=== PATIENT | female | born 1980 | race Caucasian/White ===

== ENCOUNTER 2017-04-01 12:55 | Emergency (ER) | payer MEDICAID, SELFPAY ==
[2017-04-01 17:17] VITALS: BP 0/0; PULSE 0
== END 2017-04-01 18:13 | disposition left against medical advice (07) ==
LOC: ER 18:10
PROVIDERS: Emergency Provider Family Medicine; Family Provider Nurse Practitioner Obstetrics & Gynecology; PCP Pediatrics
DX: Z53.29 Procedure and treatment not carried out because of patient's decision for other reasons (principal)
CPT/HCPCS: 99211

== ENCOUNTER → 2017-10-10 15:46 | Outpatient (REF) | payer MEDICAID, SELFPAY | LOC: LAB 15:46 | PROVIDERS: Visit Provider Physician Assistant | DX: R30.9 Painful micturition, unspecified (principal) | CPT/HCPCS: 87086 ==

== ENCOUNTER → 2017-11-14 13:27 | Outpatient (CLI) | payer MEDICAID, SELFPAY ==
--- NOTE | 2017-11-14 13:29 | CT_ITS ---
CT head/brain wo con HISTORY: Left-sided facial numbness and tingling in the left arm ITS.REASON: numbness/tingling ORDERING PHYSICIAN: Mag Mar PATIENT AGE: 37 years COMPARISON: None TECHNIQUE: Axial images obtained without contrast. Brain and bone windows reviewed. All CT scans at the facility use one or more dose reduction, viz: automated exposure control, ma/kV adjustment per patient size (including targeted exams where dose is matched to indication, i.e. head), or iterative reconstruction technique. FINDINGS: No midline shift, mass effect, intracranial hemorrhage, hydrocephalus, or extra-axial fluid collection is evident. The calvarium has an unremarkable appearance. No mastoid effusion. No sinus air-fluid levels.. IMPRESSION: Negative CT head without contrast. No acute finding
== END ==
PROVIDERS: Family Provider Nurse Practitioner Obstetrics & Gynecology; PCP Physician Assistant; Visit Provider Nurse Practitioner Family
DX: R20.0 Anesthesia of skin (principal); R20.2 Paresthesia of skin
CPT/HCPCS: 70450

== ENCOUNTER → 2017-11-25 08:31 | Outpatient (CLI) | payer MEDICAID, SELFPAY ==
--- NOTE | 2017-11-25 08:34 | XR_ITS ---
EXAM: XR lumbar spine 2-3V HISTORY: ITS.REASON: back pain ORDERING PHYSICIAN: Mag Mar PATIENT AGE: 37 years COMPARISON: None FINDINGS: There are 6 lumbar segments. There is normal alignment. No fracture or dislocation evident. Minimal degenerative disc disease is present at the lumbosacral junction. No fracture or dislocation. No lytic or blastic change. There is left renal calculus and 7 mm. IMPRESSION: 1. Mild degenerative disc disease at the lumbosacral junction. 2. Left nephrolithiasis
== END ==
PROVIDERS: PCP Emergency Medicine; Visit Provider Nurse Practitioner Family
DX: M54.42 Lumbago with sciatica, left side (principal)
CPT/HCPCS: 72100

== ENCOUNTER 2018-01-27 08:00 | Outpatient (RCR) | payer MEDICAID, SELFPAY ==
--- NOTE | 2017-12-20 11:09 | HMH.PTOPEV ---
PT Outpatient Evaluation Rehab PT Outpatient Evaluation Start: 12/20/17 11:00 Freq: Status: Active Protocol: Document 12/20/17 11:00 STEPHEN (Rec: 12/20/17 11:08 STEPHEN [id number]) Electronically Signed By Gustavo Worthy, PT 12/20/17 11:00 Outpatient Therapy Subjective History Subjective History Pt reports injury to low back on 10/24/17 while lifting boxes at work. Pt reports L sided LBP progressed into L LE s/s following initial injury. Pt presents today with L sided LBP and radicular s/s (N&T, pain, and weakness) in L LE from hip to toes. Pt reports recent CT scan has revealed buldging discs @ L4-5 and L5- S1 to the L. Chief Complaint Pain Clicks Paresthesia Weakness Symptom Type Ache Throb Sharp Dull Stabbing Burning Numbness Tingling Shooting Symptoms Relieved By Rest/Positioning Symptoms Aggravated By Standing Bending/Stooping Physical Activity Twisting Walking Lifting Prior Functional Limitations None Current Functional Limitations Lifting Housework Driving Standing Walking Bending/Stooping Symptom Description Constant but Variable Level of pain today (0-10) 8 Pain scale - at its best (0-10) 7 Pain scale - at its worst (0-10) 10 Lumbopelvic Eval Posture Thoracic Spine Posture Standing Position Neutral Lumbar Spine Posture Standing Position Neutral Assistive device Assistive Devices None / NA Gait Observation General Gait Pattern Observation Antalgic Gait Palapation tenderness left thoracic spinal tenderness No lumbar spinal tenderness Yes: 2/4 paraspinal tenderness Yes: 3/4 buttock tenderness Yes: 3/4 tenderness over symphysis pubis No Lumbar/Sacral Palpation Findings Tenderness
--- NOTE | 2018-01-13 09:13 | HMH.RHREAS ---
Rehab Reassessment Rehab OP Re-assessment Start: 01/13/18 08:59 Freq: Status: Active Protocol: Document 01/13/18 08:59 STEPHEN (Rec: 01/13/18 09:04 STEPHEN [id number]) Electronically Signed By Gustavo Worthy, PT 01/13/18 08:59 Rehab Re-assessment Subjective Subjective PT REPORTS 3-5/10 LBP AND L LE S/S ON VAS, AND FEELS 50% BETTER SINCE I EVAL Objective Objective Notes AROM L-SPINE FLX 0-90, EXT 0- 20, B SB 0-30 MMT: L HIP FLX 4/5, L KNEE EXT 5/5, L KNEE FLX 4/5, L DF 4+/ 5 TTP: L QL MM 2/4, L PIRIFORMIS MM 2/4 Assessment Progress Assessment Progressing as Expected Assessment Notes PT W/IMPROVED ROM, STRENGTH, AND TTP Patient goals met STG'S 09/04 LTG'S 07/10 Goals Not Met LTG'D 10/09 Plan Plan PT TO CONT W/SKILLED P.T. TO MAKE FURTHER IMPROVEMENTS W/ ROM, STRENGTH, AND TTP TO ALLOW FOR OPTIMAL FUNCTION Frequency of Therapy 1-2X/WK Duration of therapy 3-4 WKS Time and Billing Re-Eval Time 15 Re-Eval Billing Units 1 PHYSICIAN CERTIFICATION: I certify the specified therapy services for Krystle Mccauley are required, authorized, and reviewed every 30 days.
== END 2018-01-27 08:01 | disposition home or self-care (01) ==
LOC: PT 08:00
PROVIDERS: Family Provider Nurse Practitioner Obstetrics & Gynecology; PCP Emergency Medicine; Visit Provider Physician Assistant
DX: M54.40 Lumbago with sciatica, unspecified side (principal)
CPT/HCPCS: 97010; 97012; 97014; 97033; 97035; 97110; 97163; 97164; G0283

== ENCOUNTER → 2018-02-27 13:37 | Outpatient (CLI) | payer MEDICAID, SELFPAY ==
[2018-02-27 13:50] LABS: Basophils # 0.1 K/mm3 (0-0.2); Eosinophils # 0.8 K/mm3 (0.0-0.4); Eosinophils % 8.1 % (0.1-12.0); Hematocrit 42.8 % (37.0-47.0); Hemoglobin 13.9 g/dL (12.2-16.2); Lymphocytes # 2.8 K/mm3 (0.7-4.5); Lymphocytes % 29.8 % (10-50); Mean Corpuscular HGB Conc 32.4 g/dL (31.8-35.4); Mean Corpuscular Hemoglobin 29.6 pg (27.0-31.2); Mean Corpuscular Volume 91.2 fl (81-99); Mean Platelet Volume 6.7 fl (7.4-10.4); Monocytes # 0.5 K/mm3 (0.1-1.0); Monocytes % 5.6 % (1.7-9.3); Neutrophils # 5.3 K/mm3 (1.8-7.8); Neutrophils % 55.5 % (37.0-80.0); Platelet Count 429 K/mm3 (142-424); Red Cell Distribution Width 13.1 % (11.5-17.5); White Blood Count 9.5 K/mm3 (4.8-10.8)
[2018-02-27 14:30] LABS: Alanine Aminotransferase 32 U/L (12-78); Albumin Level 4.1 gm/dL (3.4-5.0); Albumin/Globulin Ratio 1.1 (1.1-1.8); Alkaline Phosphatase 96 U/L (46-116); Anion Gap 13.4 mEq/L (5-15); Aspartate Amino Transferase 20 U/L (15-37); Bilirubin,Total 0.6 mg/dL (0.2-1.0); Blood Urea Nitrogen 10 mg/dL (7-18); Calcium 9.2 mg/dL (8.5-10.1); Carbon Dioxide 30 mmol/L (21.0-32.0); Chloride 101 mmol/L (98-107); Chol/HDL Ratio 4.2 (1-3.5); Cholesterol 226 mg/dL (140-200); Creatinine,Serum 0.72 mg/dL (0.55-1.02); Estimated Glomerular Filt Rate 91 ml/min (>60); Free T4 (Free Thyroxine) 1.01 ng/dl (0.76-1.46); GFR (African American) 110 ML/MIN (>60); Globulin 3.7 gm/dl (1.3-3.2); Glucose 97 mg/dL (74-106); HDL Cholesterol 54 mg/dL (29-89); LDL Cholesterol 136 mg/dL (0-130); Potassium 4.4 mmoL/L (3.5-5.1); Sodium 140 mmol/L (136-145); Thyroid Stimulating Hormone 1.57 uIU/ml (0.358-3.740); Total Protein,Serum 7.8 gm/dL (6.4-8.2); Triglycerides 179 mg/dL (30-200); VLDL Cholesterol 36 mg/dL (0-40)
[2018-02-28 10:59] LABS: Folate 16.6 ng/mL (>3.0); Vitamin B12 713 pg/mL (232-1245); Vitamin D 25 Hydroxy 22.1 ng/mL (30.0-100.0)
== END ==
PROVIDERS: Visit Provider Physician Assistant
DX: R53.83 Other fatigue (principal)
CPT/HCPCS: 80053; 80061; 82607; 82652; 82746; 84439; 84443; 85025

== ENCOUNTER → 2018-03-11 07:56 | Outpatient (CLI) | payer MEDICAID, SELFPAY ==
--- NOTE | 2018-03-11 07:57 | MR_ITS ---
MR lumbar spine wo con, MR 3-d myelogram/MRCP HISTORY: PT states low back pain since September. Left leg numbness. ITS.REASON: Low back pain, radiating RLE ORDERING PHYSICIAN: YUE Celis PATIENT AGE: 37 years Comparison: X-RAY 11/25/17. CT 10/29/17 TECHNIQUE: Standard multiplanar multiecho sequences are performed without contrast. 3-D MIP and myelographic images are also rendered and reviewed FINDINGS: There is normal alignment. The spinal cord ends at the T12-L1 level. T11-T12, T12-L1, L1-L2, L2-L3 and L3-L4 have an unremarkable appearance. L4-L5: Mild disc desiccation with minimal bulging disc with a small broad-based left paracentral disc protrusion which abuts the anteromedial aspect of the left L5 nerve root with mild facet and ligamentum hypertrophy and mild left lateral recess narrowing. There is mild narrowing of the canal at this level. L5-S1: Degenerative disc disease. Bulging disc is present at this level slightly eccentric toward the left with a small left paracentral disc herniation with minimal superior extrusion best detected on the axial images with impingement upon the left S1 nerve root. There is also foraminal narrowing and lateral recess narrowing bilaterally left greater than right. Type II endplate changes. IMPRESSION: 1. L4-L5: Mild disc desiccation with minimal bulging disc with a small broad-based left paracentral disc protrusion which abuts the anteromedial aspect of the left L5 nerve root with mild facet and ligamentum hypertrophy and mild left lateral recess narrowing. There is mild narrowing of the canal at this level. 2. L5-S1: Degenerative disc disease. Bulging disc is present at this level slightly eccentric toward the left with a small left paracentral disc herniation with minimal superior extrusion best detected on the axial images with impingement upon the left S1 nerve root. There is also foraminal narrowing and lateral recess narrowing bilaterally left greater than right. Type II endplate changes.
== END ==
PROVIDERS: PCP Physician Assistant; Visit Provider Physician Assistant
DX: M54.40 Lumbago with sciatica, unspecified side (principal)
CPT/HCPCS: 72148; 76376

== ENCOUNTER → 2018-03-31 09:21 | Outpatient (POV) | payer MEDICAID, SELFPAY ==
[2018-03-31 09:43] VITALS: BP 150/64; PULSE 71; RESP 18; O2SAT 99
--- NOTE | 2018-03-31 10:03 | HMH.PMCON ---
Assessment and Plan (1) Protrusion of lumbar intervertebral disc Current visit: No Status: Chronic Category: Medical Code(s): M51.26 - Other intervertebral disc displacement, lumbar region (2) DDD (degenerative disc disease), lumbar Current visit: No Status: Chronic Category: Medical Code(s): M51.36 - Other intervertebral disc degeneration, lumbar region (3) Lumbar radiculopathy Current visit: No Status: Chronic Category: Medical Code(s): M54.16 - Radiculopathy, lumbar region - Assessment and plan all Dx Assessment and Plan for all problems:: We will schedule an L4-L5 lumbar epidural steroid injection for the patient to determine if this helps alleviate her pain. Patient also has an upcoming neurosurgical consultation with Dr. Laird. We will check on this. I do believe she needs this consultation. I will follow-up with the patient after her injection. This note was dictated using voice recognition software and may contain errors or omissions HPI - Data of Consult Consult date: 03/31/18 Requesting Physician: Bernie Rosen APRN Primary Care Provider: YUE Truong - Consult Narrative Reason for consult: Back pain History of present illness: Ms. Mccauley is a 37 year old female who presents today for consultation in regards to her low back pain. Patient started having pain after she was working and moving heavy boxes. She states all activity makes her pain worse while rest decreases her pain. She rates her pain a 7 out of 10. She states is in her lower back and radiates into her left leg at times. She is tried and failed chiropractic therapy along with physical therapy. Patient is on Mobic and naproxen with no relief. She is not on any anticoagulation therapy she is continuing a home stretching program. Patient does have an MRI showing bulging disc with abutment of the nerve. CC: Bernie Rosen APRN [facility] History I have reviewed the patient's past medical history: Yes Medical History: Reports:: Anxiety Denies:: Cancer, Diabetes Mellitus Type 1, Diabetes Mellitus Type 2, MRSA Other Medical History: Reports: Anemia Laterality Cases: Bilateral: Tonsillectomy Other Surgeries: Yes: Dilation and Curettage, Tubal Ligation Amputation: No Fractures: No - *Social History Smoking Status: Never smoker Tobacco Type: cigarettes # Packs/Day (cigarettes): 1 Alcohol Intake: never Substance Use Type: denies use Occupational Status: employed Housing: house Household Members: children - Psychiatric History Expresses thoughts of harming self/others: None Suicide Plan Description: No Plan Pschychiatric History:: Reports:: Anxiety *Family Hx:: Diabetes, Coronary Artery Disease, Hypertension Review of Systems - Review of Systems ROS General: no recent weight change, no fever, no sleep disturbances Respiratory: no cough, no shortness of air, no recurring pulmonary infections Cardiovascular/Peripheral Vascular: No chest pain, No palpitations, no edema, no shortness of breath. Gastrointestinal: no incontinence, normal bowel movements reported Genitourinary: no incontinence Musculoskeletal: Back pain, left leg pain Psychiatric: normal mood/ affect, [denies depression], [denies anxiety] Neurological: [denies weakness in extremities], [denies balance issues] Meds Home Medications Medication Instructions Recorded Confirmed Type Buspirone HCl 15 mg PO BID 10/29/17 02/27/18 History Venlafaxine HCl [Effexor Xr] 75 mg PO DAILY 10/29/17 02/27/18 History albuterol sulfate HFA 90 INHALATION 25 Days #18 11/06/17 02/27/18 History mcg/actuation aerosol inhaler Meloxicam 15 mg PO DAILY 02/27/18 02/27/18 History atorvastatin 10 mg tablet 10 mg PO QHS 90 Days #90 tab 02/28/18 Rx cholecalciferol (vitamin D3) 1,000 1,000 unit PO DAILY 90 Days #90 cap 02/28/18 Rx unit capsule ergocalciferol (vitamin D2) 50,000 50,000 unit PO QWEEK 90 Days #14 02/28/18 Rx unit capsule cap
--- NOTE | 2018-03-31 10:06 | P.CONS_ITS ---
Assessment and Plan (1) Protrusion of lumbar intervertebral disc Current visit: No Status: Chronic Category: Medical Code(s): M51.26 - Other intervertebral disc displacement, lumbar region (2) DDD (degenerative disc disease), lumbar Current visit: No Status: Chronic Category: Medical Code(s): M51.36 - Other intervertebral disc degeneration, lumbar region (3) Lumbar radiculopathy Current visit: No Status: Chronic Category: Medical Code(s): M54.16 - Radiculopathy, lumbar region - Assessment and plan all Dx Assessment and Plan for all problems:: We will schedule an L4-L5 lumbar epidural steroid injection for the patient to determine if this helps alleviate her pain. Patient also has an upcoming neurosurgical consultation with Dr. Laird. We will check on this. I do believe she needs this consultation. I will follow-up with the patient after her injection. This note was dictated using voice recognition software and may contain errors or omissions HPI - Data of Consult Consult date: 03/31/18 Requesting Physician: Bernie Rosen APRN Primary Care Provider: YUE Truong - Consult Narrative Reason for consult: Back pain History of present illness: Ms. Mccauley is a 37 year old female who presents today for consultation in regards to her low back pain. Patient started having pain after she was working and moving heavy boxes. She states all activity makes her pain worse while rest decreases her pain. She rates her pain a 7 out of 10. She states is in her lower back and radiates into her left leg at times. She is tried and failed chiropractic therapy along with physical therapy. Patient is on Mobic and naproxen with no relief. She is not on any anticoagulation therapy she is continuing a home stretching program. Patient does have an MRI showing bulging disc with abutment of the nerve. CC: Bernie Rosen APRN [facility] History I have reviewed the patient's past medical history: Yes Medical History: Reports:: Anxiety Denies:: Cancer, Diabetes Mellitus Type 1, Diabetes Mellitus Type 2, MRSA Other Medical History: Reports: Anemia Laterality Cases: Bilateral: Tonsillectomy Other Surgeries: Yes: Dilation and Curettage, Tubal Ligation Amputation: No Fractures: No - *Social History Smoking Status: Never smoker Tobacco Type: cigarettes # Packs/Day (cigarettes): 1 Alcohol Intake: never Substance Use Type: denies use Occupational Status: employed Housing: house Household Members: children - Psychiatric History Expresses thoughts of harming self/others: None Suicide Plan Description: No Plan Pschychiatric History:: Reports:: Anxiety *Family Hx:: Diabetes, Coronary Artery Disease, Hypertension Review of Systems - Review of Systems ROS General: no recent weight change, no fever, no sleep disturbances Respiratory: no cough, no shortness of air, no recurring pulmonary infections Cardiovascular/Peripheral Vascular: No chest pain, No palpitations, no edema, no shortness of breath. Gastrointestinal: no incontinence, normal bowel movements reported Genitourinary: no incontinence Musculoskeletal: Back pain, left leg pain Psychiatric: normal mood/ affect, [denies depression], [denies anxiety] Neurological: [denies weakness in extremities], [denies balance issues] Meds Home Medications Medication Instructions Recorded Confirmed Type Buspirone HCl 15 mg PO BID 10/29/17 02/27/18 History Venlafaxine HCl [Effexor Xr
== END ==
PROVIDERS: PCP Physician Assistant; Visit Provider Clinical Nurse Specialist Family Health
DX: M51.26 Other intervertebral disc displacement, lumbar region (principal); M51.16 Intervertebral disc disorders with radiculopathy, lumbar region
CPT/HCPCS: 99202

== ENCOUNTER → 2018-05-26 09:54 | Outpatient (POV) | payer MEDICAID, SELFPAY ==
[2018-05-26 10:04] VITALS: BP 138/88; PULSE 78; RESP 18; O2SAT 99; BMI 44.9
--- NOTE | 2018-05-26 10:26 | P.CONS_ITS ---
[facility] Pain Management SOAP Note Subjective:: Patient is a pleasant 38-year-old white female who we are treating for low back pain. Patient is following up after her first lumbar epidural steroid injection. She states that it helped immensely. She is much more functional. She states that it does decrease her pain up to 80%. Patient has been seen by Dr. Laird at this time he started her on gabapentin. Patient would like to repeat this injection. She is not on any anticoagulation therapy. She is continuing a home stretching routine. ROS General: no recent weight change, no fever, no sleep disturbances Respiratory: no cough, no shortness of air, no recurring pulmonary infections Cardiovascular/Peripheral Vascular: No chest pain, No palpitations, no edema, no shortness of breath. Gastrointestinal: no incontinence, normal bowel movements reported Genitourinary: no incontinence Musculoskeletal: Back pain, leg pain Psychiatric: normal mood/ affect Neurological: [denies weakness in extremities], [denies balance issues] Objective:: Physical Exam General: Alert and oriented x3, no acute distress, pleasant and cooperative, [on room air] Lungs: Resps E/U, Symmetrical chest expansion, Eyes: PERRL Musculoskeletal: Flexion and extension of lumbar spine somewhat guarded secondary to pain, deep tendon reflexes normal, strength in upper and lower extremities [5/5], [abnormal gait noted] Neurological: speech clear, 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 I will follow-up with the patient after her injection and reassess her symptoms at that time. Dr. José has reviewed this note and agrees with this plan of care. This note was dictated using voice recognition software and may contain errors or omissions
== END ==
PROVIDERS: PCP Physician Assistant; Visit Provider Clinical Nurse Specialist Family Health
DX: M51.16 Intervertebral disc disorders with radiculopathy, lumbar region (principal)
CPT/HCPCS: 99213

== ENCOUNTER → 2018-06-30 11:13 | Outpatient (POV) | payer MEDICAID, SELFPAY ==
[2018-06-30 11:47] VITALS: BP 138/87; PULSE 91; RESP 18; O2SAT 98; BMI 48.8
--- NOTE | 2018-06-30 12:30 | HMH.PAINSOAP ---
[facility] Pain Management SOAP Note Subjective:: Patient is a pleasant 38-year-old white female who we are treating for low back pain. Patient states her pain is very axial in nature. She rates her pain a 4 out of 10 however she states it spikes up to 9 out of 10. She has been on gabapentin 100 mg however she still having quite a bit of side effects and is unable to take it. She is currently on Mobic. Patient is failed physical therapy. She has seen a neurosurgeon but was not deemed appropriate candidate for surgery at this time. Patient has a lot of pain with any kind of twisting motion. ROS General: no recent weight change, no fever, no sleep disturbances Respiratory: no cough, no shortness of air, no recurring pulmonary infections Cardiovascular/Peripheral Vascular: No chest pain, No palpitations, no edema, no shortness of breath. Gastrointestinal: no incontinence, normal bowel movements reported Genitourinary: no incontinence Musculoskeletal: Back pain on the left side Psychiatric: normal mood/ affect Neurological: [denies weakness in extremities], [denies balance issues] Objective:: Physical Exam General: Alert and oriented x3, no acute distress, pleasant and cooperative, [on room air] Lungs: Resps E/U, Symmetrical chest expansion, Eyes: PERRL Musculoskeletal: Flexion and extension of lumbar spine somewhat guarded secondary to pain, deep tendon reflexes normal, strength in upper and lower extremities [5/5], slightly antalgic gait noted, positive Kemps test on the left side positive facet loading left side lumbar spine Neurological: speech clear, hot 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 Patient is failed over 6 months of conservative treatment including medications and epidural injections. Patient is not a surgical candidate at this time. Patient is continuing with her Mobic we will change this to diclofenac 75 mg 1 p.o. twice daily we will also change her gabapentin to Lyrica 75 mg 1 p.o. twice daily she will begin taking this at nighttime to see if this is effective. I will follow-up with the patient after injection reassess her symptoms at that time. She is not on any anticoagulation therapy. Dr. José has reviewed this note and agrees with this plan of care. This note was dictated using voice recognition software and may contain errors or omissions
--- NOTE | 2018-06-30 12:33 | P.CONS_ITS ---
[facility] Pain Management SOAP Note Subjective:: Patient is a pleasant 38-year-old white female who we are treating for low back pain. Patient states her pain is very axial in nature. She rates her pain a 4 out of 10 however she states it spikes up to 9 out of 10. She has been on gabapentin 100 mg however she still having quite a bit of side effects and is unable to take it. She is currently on Mobic. Patient is failed physical therapy. She has seen a neurosurgeon but was not deemed appropriate candidate for surgery at this time. Patient has a lot of pain with any kind of twisting motion. ROS General: no recent weight change, no fever, no sleep disturbances Respiratory: no cough, no shortness of air, no recurring pulmonary infections Cardiovascular/Peripheral Vascular: No chest pain, No palpitations, no edema, no shortness of breath. Gastrointestinal: no incontinence, normal bowel movements reported Genitourinary: no incontinence Musculoskeletal: Back pain on the left side Psychiatric: normal mood/ affect Neurological: [denies weakness in extremities], [denies balance issues] Objective:: Physical Exam General: Alert and oriented x3, no acute distress, pleasant and cooperative, [on room air] Lungs: Resps E/U, Symmetrical chest expansion, Eyes: PERRL Musculoskeletal: Flexion and extension of lumbar spine somewhat guarded secondary to pain, deep tendon reflexes normal, strength in upper and lower extremities [5/5], slightly antalgic gait noted, positive Kemps test on the left side positive facet loading left side lumbar spine Neurological: speech clear, 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 Patient is failed over 6 months of conservative treatment including medications and epidural injections. Patient is not a surgical candidate at this time. Patient is continuing with her Mobic we will change this to diclofenac 75 mg 1 p.o. twice daily we will also change her gabapentin to Lyrica 75 mg 1 p.o. twice daily she will begin taking this at nighttime to see if this is effective. I will follow-up with the patient after injection reassess her symptoms at that time. She is not on any anticoagulation therapy. Dr. José has reviewed this note and agrees with this plan of care. This note was dictated using voice recognition software and may contain errors or omissions
== END ==
PROVIDERS: PCP Physician Assistant; Visit Provider Clinical Nurse Specialist Family Health
DX: M51.36 Other intervertebral disc degeneration, lumbar region (principal); M54.06 Panniculitis affecting regions of neck and back, lumbar region
CPT/HCPCS: 99212

== ENCOUNTER → 2018-07-10 13:55 | Outpatient (CLI) | payer MEDICAID, SELFPAY ==
[2018-07-10 14:29] LABS: Alanine Aminotransferase 36 U/L (12-78); Albumin Level 3.7 gm/dL (3.4-5.0); Albumin/Globulin Ratio 0.9 (1.1-1.8); Alkaline Phosphatase 89 U/L (46-116); Anion Gap 17.5 mEq/L (5-15); Aspartate Amino Transferase 24 U/L (15-37); Bilirubin,Total 0.4 mg/dL (0.2-1.0); Blood Urea Nitrogen 23 mg/dL (7-18); Calcium 9.3 mg/dL (8.5-10.1); Carbon Dioxide 24 mmol/L (21.0-32.0); Chloride 103 mmol/L (98-107); Chol/HDL Ratio 3.3 (1-3.5); Cholesterol 203 mg/dL (140-200); Creatinine,Serum 0.92 mg/dL (0.55-1.02); Estimated Glomerular Filt Rate 68 ml/min (>60); Free T4 (Free Thyroxine) 0.86 ng/dl (0.76-1.46); GFR (African American) 83 ML/MIN (>60); Globulin 3.9 gm/dl (1.3-3.2); Glucose 90 mg/dL (74-106); HDL Cholesterol 62 mg/dL (29-89); LDL Cholesterol 115 mg/dL (0-130); Potassium 4.5 mmoL/L (3.5-5.1); Sodium 140 mmol/L (136-145); Thyroid Stimulating Hormone 3.96 uIU/ml (0.358-3.740); Total Protein,Serum 7.6 gm/dL (6.4-8.2); Triglycerides 130 mg/dL (30-200); VLDL Cholesterol 26 mg/dL (0-40)
[2018-07-10 14:44] LABS: Basophils # 0.1 K/mm3 (0-0.2); Eosinophils # 0.6 K/mm3 (0.0-0.4); Hematocrit 41.2 % (37.0-47.0); Hemoglobin 13.6 g/dL (12.2-16.2); Lymphocytes % 33.3 % (10-50); Mean Corpuscular HGB Conc 32.9 g/dL (31.8-35.4); Mean Corpuscular Volume 88.1 fl (81-99); Monocytes # 0.5 K/mm3 (0.1-1.0); Monocytes % 5.4 % (1.7-9.3); Neutrophils # 4.7 K/mm3 (1.8-7.8); Neutrophils % 53.3 % (37.0-80.0); Platelet Count 355 K/mm3 (142-424); Red Blood Count 4.68 M/mm3 (4.20-5.40); Red Cell Distribution Width 13.3 % (11.5-17.5); White Blood Count 8.9 K/mm3 (4.8-10.8)
[2018-07-14 21:08] LABS: 1,25-Dihydroxy, Vitamin D-2 <10 pg/mL (.)
[2018-07-16 06:55] LABS: 1,25 Dihydroxy Vitamin D 14 pg/mL (.); 1,25-Dihydroxy, Vitamin D-3 <10 pg/mL (.)
== END ==
PROVIDERS: Visit Provider Physician Assistant
DX: R53.83 Other fatigue (principal)
CPT/HCPCS: 80053; 80061; 82652; 84439; 84443; 85025

== ENCOUNTER → 2018-08-08 13:24 | Outpatient (POV) | payer MEDICAID, SELFPAY ==
[2018-08-08 13:37] VITALS: BP 131/80; PULSE 76; RESP 21; O2SAT 999; BMI 49.8
--- NOTE | 2018-08-08 13:51 | P.CONS_ITS ---
[facility] Pain Management SOAP Note Subjective:: This patient is a pleasant 38-year-old white female who we are treating for low back pain with lumbar spondylosis and facet arthropathy. She had 80 to 90% relief of her pain symptoms after left-sided medial branch blocks of L3-L4, L4-5 and L5-S1. Her pain relief lasted a couple weeks. Her pain is now returned. We will seek approval for repeat left-sided medial branch block/facet joint injections of L3-L4, for about L5-S1. We will proceed with radiofrequency ablation to the same levels on the left side if successful. She was also on Lyrica 75 mg once a day which was helping her. We will increase her to 75 mg 3 times a day to further help with her pain symptoms. Objective:: Alert and oriented x3 no acute distress. Tenderness over left side of the facet joints of L3-L4, L4-5 and L5-S1. Increased pain with extension and lateral bending. Motor strength of the lower extremities is 5/5. There is no gross sensory deficit. Assessment:: Degenerative disc disease of lumbar spine with lumbar spondylosis and facet arthropathy of lumbar spine. Plan:: We will seek approval for repeat left-sided medial branch block/facet joint injections of L3-L4, for about L5-S1. We will proceed with radiofrequency ablation to the same levels on the left side if successful. She was also on Lyrica 75 mg once a day which was helping her. We will increase her to 75 mg 3 times a day to further help with her pain symptoms.
== END ==
PROVIDERS: PCP Physician Assistant; Visit Provider Anesthesiology
DX: M51.36 Other intervertebral disc degeneration, lumbar region (principal); M47.896 Other spondylosis, lumbar region; M54.06 Panniculitis affecting regions of neck and back, lumbar region
CPT/HCPCS: 99212

== ENCOUNTER → 2018-09-03 18:36 | Outpatient (CLI) | payer MEDICAID, SELFPAY | PROVIDERS: Visit Provider Physician Assistant | DX: R30.0 Dysuria (principal) | CPT/HCPCS: 87086; 87088; 87186 ==

== ENCOUNTER → 2018-09-08 14:39 | Outpatient (POV) | payer MEDICAID, SELFPAY ==
[2018-09-08 14:52] VITALS: BP 125/78; PULSE 100; RESP 18; O2SAT 98; BMI 49.1
--- NOTE | 2018-09-08 15:30 | P.CONS_ITS ---
[facility] Pain Management SOAP Note Subjective:: Patient is a pleasant 88-year-old white female who we are treating for low back pain with lumbar spondylosis and facet arthropathy. The patient following up after her second lumbar facet joint/medial branch block of L3-L4 L4-L5 L5 and S1. She reports 80% relief of her symptoms after this injection. Patient would like to discuss radiofrequency ablation today. ROS General: no recent weight change, no fever, no sleep disturbances Respiratory: no cough, no shortness of air, no recurring pulmonary infections Cardiovascular/Peripheral Vascular: No chest pain, No palpitations, no edema, no shortness of breath. Gastrointestinal: no incontinence, normal bowel movements reported Genitourinary: no incontinence Musculoskeletal: Back pain Psychiatric: normal mood/ affect, [denies depression], [denies anxiety] Neurological: [denies weakness in extremities], [denies balance issues] Objective:: Physical Exam General: Alert and oriented x3, no acute distress, pleasant and cooperative, [on room air] Lungs: Resps E/U, Symmetrical chest expansion, Eyes: PERRL Musculoskeletal: Flexion and extension of lumbar spine somewhat guarded secondary to pain, deep tendon reflexes normal, strength in upper and lower extremities [5/5], slightly antalgic gait noted Neurological: speech clear, speech and drama teacher equal, no gross sensory deficits Assessment:: 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 We will plan an RFA at L3-L4 L4-L5 L5-S1. We will do the left side and then in 2 weeks to the right side. We will schedule the patient for an RFA and see her in the office after the procedure. She will continue her home stretching program and NSAIDs. The patient is not on any anticoagulation therapy. She has been instructed to call the office if she has any concerns prior to the next appointment. Dr. José has reviewed this note and agrees with this plan of care. This note was dictated using voice recognition software and may contain errors or omissions
== END ==
PROVIDERS: PCP Physician Assistant; Visit Provider Clinical Nurse Specialist Family Health
DX: M54.06 Panniculitis affecting regions of neck and back, lumbar region (principal); M51.36 Other intervertebral disc degeneration, lumbar region; M47.896 Other spondylosis, lumbar region
CPT/HCPCS: 99212

== ENCOUNTER → 2018-11-24 15:52 | Outpatient (POV) | payer MEDICAID, SELFPAY ==
[2018-11-24 16:03] VITALS: BP 128/82; PULSE 100; RESP 18; O2SAT 98; BMI 45.7
--- NOTE | 2018-11-25 08:58 | P.CONS_ITS ---
[facility] Pain Management SOAP Note Subjective:: Patient is a pleasant 38-year-old white female who presents today for follow-up after bilateral RFA of the L3-L4 L4-L5 L5-S1 levels. She rates her pain a 3 out of 10 today. She states she is been able to return to work and is doing extremely well. Overall the patient states she is doing 80% better in regards to pain. Patient wants to discuss potentially a new MRI. Patient states that she sometimes has loss of bladder control. She does not have loss of bowel control. She feels that this may be coming from her back. ROS General: no recent weight change, no fever, no sleep disturbances Respiratory: no cough, no shortness of air, no recurring pulmonary infections Cardiovascular/Peripheral Vascular: No chest pain, No palpitations, no edema, no shortness of breath. Gastrointestinal: no incontinence, normal bowel movements reported Genitourinary: Intermittent urinary incontinence Musculoskeletal: Back pain Psychiatric: normal mood/ affect, Neurological: [denies weakness in extremities], [denies balance issues] Objective:: Physical Exam General: Alert and oriented x3, no acute distress, pleasant and cooperative, [on room air] Lungs: Resps E/U, Symmetrical chest expansion, Eyes: PERRL Musculoskeletal: Flexion and extension of lumbar spine somewhat guarded secondary to pain, deep tendon reflexes normal, strength in upper and lower extremities [5/5], slightly antalgic gait noted Neurological: speech clear, computer applications instructor equal, no gross sensory deficits Assessment:: Degenerative disc disease lumbar spine with lumbar facet arthropathy and spondylosis Plan:: We will see the patient back in 3 months reassess her symptoms at that time we will also order an MRI to see if there is any new pathology. I will follow-up with the patient at this time she is been instructed to call the office if she has any issues prior to her next appointment. Dr. José has reviewed this note and agrees with this plan of care. This note was dictated using voice recognition software and may contain errors or omissions Pain Management Hx Components *Have you ever received a pneumonia vaccine?: No *Have you received a flu vaccine this season?: No - *Social History *Occupational Status:: other *Travel in the last 8 weeks: None
--- NOTE | 2018-12-09 11:13 | PC.NURSE ---
REFILLS FOR GABAPENTIN 100MG TID FAXED TO [facility] PER PROVIDER ORDER
== END ==
PROVIDERS: PCP Physician Assistant; Visit Provider Clinical Nurse Specialist Family Health
DX: M51.36 Other intervertebral disc degeneration, lumbar region (principal); M54.06 Panniculitis affecting regions of neck and back, lumbar region; M47.896 Other spondylosis, lumbar region
CPT/HCPCS: 99212

== ENCOUNTER → 2018-12-05 15:16 | Outpatient (CLI) | payer MEDICAID, SELFPAY ==
--- NOTE | 2018-12-05 15:20 | MR_ITS ---
PROCEDURE: MR LUMBAR SPINE WO CON CLINICAL INDICATION: BACK PAIN Heart 5 seconds higher COMPARISON: SPLUMBWO MR lumbar spine wo con from 03/11/2018 TECHNIQUE: Standard multiplanar multiecho sequences are performed without contrast. 3-D MIP and myelographic images are also rendered and reviewed FINDINGS: The spinal cord ends at the T12-L1 level. Normal alignment. No fracture or dislocation. T11-L4 has an unremarkable appearance. L4-5: Mild disc desiccation with minimal central disc protrusion slightly eccentric toward the left and slightly smaller than when compared to the previous exam. Mild facet ligamentum hypertrophy with mild bilateral foraminal and lateral recess narrowing. L5-S1: Degenerate disc disease with bulging disc with a small central and left paracentral disc osteophyte complex abutting the left S1 nerve root not significantly changed. Mild facet ligamentum hypertrophy with mild to moderate bilateral foraminal narrowing. IMPRESSION: 1. L4-5: Mild disc desiccation with minimal central disc protrusion slightly eccentric toward the left and slightly smaller than when compared to the previous exam. Mild facet ligamentum hypertrophy with mild bilateral foraminal and lateral recess narrowing. 2. L5-S1: Degenerate disc disease with bulging disc with a small central and left paracentral disc osteophyte complex abutting the left S1 nerve root not significantly changed. Mild facet ligamentum hypertrophy with mild to moderate bilateral foraminal narrowing 3. No canal stenosis or extruded herniated disc evident Dictated by: Rajat Martinez MD 12/07/2018 12:19 Electronically signed by Rajat Martinez MD in [place] 12/07/2018 12:19
== END ==
PROVIDERS: PCP Physician Assistant; Visit Provider Clinical Nurse Specialist Family Health
DX: M54.5 Low back pain (principal)
CPT/HCPCS: 72148; 76376

== ENCOUNTER → 2018-12-25 13:32 | Outpatient (CLI) | payer MEDICAID, SELFPAY ==
[2018-12-25 13:57] LABS: Basophils # 0.1 K/mm3 (0-0.2); Basophils % 1.2 % (0.1-2.0); Eosinophils # 0.8 K/mm3 (0.0-0.4); Eosinophils % 10.1 % (0.1-12.0); Hematocrit 41.5 % (37.0-47.0); Hemoglobin 12.7 g/dL (12.2-16.2); Lymphocytes # 2.5 K/mm3 (0.7-4.5); Lymphocytes % 31.5 % (10-50); Mean Corpuscular HGB Conc 30.7 g/dL (31.8-35.4); Mean Corpuscular Hemoglobin 28.4 pg (27.0-31.2); Mean Corpuscular Volume 92.3 fl (81-99); Mean Platelet Volume 7.7 fl (7.4-10.4); Monocytes # 0.5 K/mm3 (0.1-1.0); Monocytes % 6.5 % (1.7-9.3); Neutrophils % 50.6 % (37.0-80.0); Platelet Count 438 K/mm3 (142-424); Red Blood Count 4.49 M/mm3 (4.20-5.40); Red Cell Distribution Width 13.4 % (11.5-17.5); White Blood Count 7.8 K/mm3 (4.8-10.8)
[2018-12-25 14:47] LABS: Alanine Aminotransferase 51 U/L (12-78); Albumin Level 3.7 gm/dL (3.4-5.0); Alkaline Phosphatase 94 U/L (46-116); Anion Gap 12.7 mEq/L (5-15); Aspartate Amino Transferase 36 U/L (15-37); Bilirubin,Total 0.5 mg/dL (0.2-1.0); Blood Urea Nitrogen 11 mg/dL (7-18); Calcium 9.9 mg/dL (8.5-10.1); Carbon Dioxide 30 mmol/L (21.0-32.0); Chloride 102 mmol/L (98-107); Cholesterol 197 mg/dL (140-200); Creatinine,Serum 0.73 mg/dL (0.55-1.02); Estimated Glomerular Filt Rate 89 ml/min (>60); GFR (African American) 108 ML/MIN (>60); Globulin 3.6 gm/dl (1.3-3.2); Glucose 94 mg/dL (74-106); HDL Cholesterol 49 mg/dL (29-89); LDL Cholesterol 113 mg/dL (0-130); Potassium 4.7 mmoL/L (3.5-5.1); Sodium 140 mmol/L (136-145); T4 (Thyroxine) 11.3 ug/dl (4.7-13.3); Total Protein,Serum 7.3 gm/dL (6.4-8.2); Triglycerides 175 mg/dL (30-200); VLDL Cholesterol 35 mg/dL (0-40)
[2018-12-27 13:48] LABS: Vitamin D 25 Hydroxy 52.5 ng/mL (30.0-100.0)
== END ==
PROVIDERS: Visit Provider Physician Assistant
DX: E03.9 Hypothyroidism, unspecified (principal)
CPT/HCPCS: 80053; 80061; 82652; 84436; 84443; 85025

== ENCOUNTER → 2019-05-06 08:28 | Outpatient (CLI) | payer OTHER, SELFPAY ==
--- NOTE | 2019-05-06 08:32 | MM_ITS ---
PROCEDURE: MM DIG SCREENING MAMM BI W/CAD CLINICAL INDICATION: screening xmg There is no personal or family history of breast cancer. COMPARISON: None, this is baseline screening exam TECHNIQUE: Standard CC and MLO images and 3D Tomosynthesis was obtained. R2 CAD reviewed. FINDINGS: Minimal scattered fibroglandular densities are seen in both breasts on a background of fatty breast parenchyma. Findings are bilateral and symmetrical. There is no suspicious lesion either breast and no suspicious microcalcifications. There is a small benign-appearing density low in the axilla left breast likely a low-lying node. [place] images were reviewed. IMPRESSION: Fibrofatty parenchyma with no suspicious lesions seen BI-RAD Category: 1 Negative FOLLOW-UP: 1YR 1 Year Follow-up (A letter has been sent to the patient regarding results of the study.) Dictated by: Dr. Young Ruiz MD 05/07/2019 17:[address] Young Ruiz MD in [place] 05/07/2019 17:10
== END ==
PROVIDERS: PCP Physician Assistant; Visit Provider Nurse Practitioner Obstetrics & Gynecology
DX: Z12.31 Encounter for screening mammogram for malignant neoplasm of breast (principal)
CPT/HCPCS: 77063; 77067

== ENCOUNTER → 2019-06-15 11:15 | Outpatient (POV) | payer OTHER, SELFPAY ==
[2019-06-15 11:29] VITALS: BP 112/66; PULSE 80; RESP 18; O2SAT 98; BMI 48.8
--- NOTE | 2019-06-15 12:42 | P.CONS_ITS ---
[facility] Pain Management SOAP Note Subjective:: Patient is a very pleasant 39-year-old white female who presents today for follow-up.. Patient had a radiofrequency ablation of L3-L4 L4-L5 L5-S1 bilateral levels back in the beginning of October. Patient is done extremely well just until recently she is beginning to have some of the pain return. She has had 2 diagnostic medial branch block/facet joint injections or she received over 80% relief of her symptomology. She is not on any anticoagulation therapy. Patient is interested in repeating her RFA given her success. Patient is continuing to work and overall doing well she rates her pain today 3 out of 10 she does have a positive Kemps test. ROS General: no recent weight change, no fever, no sleep disturbances Respiratory: no cough, no shortness of air, no recurring pulmonary infections Cardiovascular/Peripheral Vascular: No chest pain, No palpitations, no edema, no shortness of breath. Gastrointestinal: no new onset incontinence, normal bowel movements reported Genitourinary: no new onset incontinence Musculoskeletal: Back pain Psychiatric: normal mood/ affect, Neurological: [denies new onset weakness in extremities], [denies new onset balance issues] Objective:: Physical Exam General: Alert and oriented x3, no acute distress, pleasant and cooperative, [on room air] Lungs: Resps E/U, Symmetrical chest expansion, Eyes: PERRL Musculoskeletal: Flexion and extension of lumbar spine somewhat guarded secondary to pain, deep tendon reflexes normal, strength in upper and lower extremities [5/5], slightly antalgic gait noted Neurological: speech clear, supervisor fitting equal, no gross sensory deficits Assessment:: Lumbar spondylosis, facet joint arthropathy, degenerative disc disease lumbar spine Plan:: We will set the patient up for an L3-4 L4-5 L5-S1 bilateral RFA. We will start with the left side and then in 2 weeks to the right side. Overall patient is done so well with her previous RFA I do believe that she will have much benefit from this. Patient's been instructed to call the office if she has any issues prior to her next appointment. She is not on any anticoagulation therapy. Dr. José has reviewed this note and agrees with this plan of care. This note was dictated using voice recognition software and may contain errors or omissions [facility] History I have reviewed the patient's past medical history: Yes Medical History: Reports:: Anxiety, Hyperlipidemia, Hypertension Denies:: Cancer, Diabetes Mellitus Type 1, Diabetes Mellitus Type 2, MRSA, Seizures *Have you ever received a pneumonia vaccine?: Yes *Have you received a flu vaccine this season?: Yes Other Medical History: Reports: Anemia, Hypothyroidism. Denies: Blood Transfusion Reaction Laterality Cases: Bilateral: Tonsillectomy Other Surgeries: Yes: Dilation and Curettage, Tubal Ligation Amputation: No Fractures: No - *Social History Smoking Status: Former smoker Tobacco Type: cigarettes # Packs/Day (cigarettes): 1 Alcohol Intake: current Alcohol Intake Frequency:: holidays/special occasions only Substance Use Type: denies use *Occupational Status:: other Housing: house Household Members: spouse, children *Travel in the last 8 weeks: None - Psychiatric History Pschychiatric History:: Reports:: Anxiety Family Hx:: Diabetes, Coronary Artery Disease, Hypertension
== END ==
PROVIDERS: PCP Physician Assistant; Visit Provider Clinical Nurse Specialist Family Health
DX: M47.816 Spondylosis without myelopathy or radiculopathy, lumbar region (principal); M51.36 Other intervertebral disc degeneration, lumbar region
CPT/HCPCS: 99212

== ENCOUNTER 2019-07-24 11:01 | Day surgery (SDC) | payer OTHER, SELFPAY ==
[2019-07-24 11:09] VITALS: BP 163/91; PULSE 81; RESP 18; TEMP 36.8; O2SAT 98; BMI 50.8
[2019-07-24 11:24] VITALS: BP 163/91; PULSE 85; RESP 18; O2SAT 99
[2019-07-24 11:27] VITALS: BP 162/89; PULSE 92; RESP 18; O2SAT 98
--- NOTE | 2019-07-24 11:42 | P.PCN_ITS ---
- Procedure Date: 07/24/19 Time: 11:42 Anesthesiologist:: Teo José MD Complications:: None Pre-procedure Diagnosis:: Degenerative disc disease of lumbar spine with lumbar spondylosis and facet arthropathy of lumbar spine Post-procedure Diagnosis:: Same Indications for Procedure:: This patient is a pleasant 39-year-old white female who we are treating for low back pain with lumbar spondylosis and facet arthropathy of lumbar spine. She is done very well with previous rhizotomy of L3-L4, 4 5 and L5-S1. She had this back in October. Her pain is just now starting to return. We will do repeat radiofrequency ablation to the facet joint/medial branches of L3-L4, 4 5 and L5- S1. We will start with the left side today followed by the right side in 2 weeks. Procedure Details:: Lumbar RFA informed consent was obtained and the risk and benefits of the procedure was explained to the patient. Patient was placed prone on the procedure table. The patient was prepped and draped in sterile fashion. C-arm fluoroscopy was used to view the lumbar spine. The skin and subcutaneous tissues were anesthetized using lidocaine. I placed 20-gauge RF needles into the facet joints of L3-4, L4-5 and L5-S1 levels on the left side. We underwent sensory stimulation. There is good sensory stimulation at 0.8 V. We underwent motor stimulation. There is no motor stimulation at 2 V. We then anesthetized these levels with lidocaine and Depo-Medrol. I used a total of 40 mg Depo-Medrol for all 3 levels. I then burned both levels of L3-4, L4-5 and L5-S1 on the left side for 4 minutes at 80 ?C. Patient tolerated the procedure well with no complication. Plan and Disposition:: We will follow-up with her in 2 weeks. Will reevaluate her symptoms and plan on radiofrequency ablation to the facet joint/medial branches of L3-L4, L4-5 and L5-S1 on the right side.
[2019-07-24 11:45] VITALS: BP 153/90; PULSE 76; RESP 20; O2SAT 98
== END 2019-07-24 11:45 | disposition home or self-care (01) ==
PROVIDERS: PCP Physician Assistant; Visit Provider Anesthesiology
DX: M51.36 Other intervertebral disc degeneration, lumbar region (principal); M54.06 Panniculitis affecting regions of neck and back, lumbar region; M47.816 Spondylosis without myelopathy or radiculopathy, lumbar region
CPT/HCPCS: 64635; 64636; J1040

== ENCOUNTER → 2019-08-05 10:23 | Outpatient (CLI) | payer OTHER, SELFPAY ==
[2019-08-06 15:10] LABS: Covid-19 Nasal PCR Sendout Lex NOT DETECTED
== END ==
PROVIDERS: Anesthesiology; Visit Provider Clinical Nurse Specialist Family Health
DX: Z01.818 Encounter for other preprocedural examination (principal); M54.5 Low back pain
CPT/HCPCS: U0003

== ENCOUNTER 2019-08-07 10:25 | Day surgery (SDC) | payer OTHER, SELFPAY ==
[2019-08-07 11:11] VITALS: BP 113/60; PULSE 74; RESP 18; TEMP 37; O2SAT 98; BMI 50.8
[2019-08-07 11:43] VITALS: BP 132/85; PULSE 85; RESP 18; O2SAT 98
--- NOTE | 2019-08-07 11:47 | HMH.PMPROC ---
- Procedure Date: 08/07/19 Time: 11:47 Anesthesiologist:: Teo José MD Complications:: None Pre-procedure Diagnosis:: Degenerative disc disease of the lumbar spine with lumbar spondylosis and facet arthropathy of lumbar spine. Post-procedure Diagnosis:: Same Indications for Procedure:: This patient is a pleasant 39-year-old white female who we are treating for low back pain with lumbar spondylosis and facet arthropathy lumbar spine. She did very well with left-sided RFA of the facet joints of L3-L4, L4-5 and L5-S1 under fluoroscopy. She is 80 to 90% better on the left side. She presents for RFA to the right-sided facet joints of L3-L4, L4-5 and L5-S1 today. Procedure Details:: Lumbar RFA informed consent was obtained and the risk and benefits of the procedure was explained to the patient. Patient was placed prone on the procedure table. The patient was prepped and draped in sterile fashion. C-arm fluoroscopy was used to view the lumbar spine. The skin and subcutaneous tissues were anesthetized using lidocaine. I placed 20-gauge RF needles into the facet joints of L3-L4, L4-5 and L5-S1 levels on the right side. We underwent sensory stimulation. There is good sensory stimulation at 0.8 V. We underwent motor stimulation. There is no motor stimulation at 2 V. We then anesthetized these levels with lidocaine and Depo-Medrol. I used a total of 40 mg Depo-Medrol for both levels. I then burned all 3 levels of L3-L4, 4 5 and L5-S1 facet joint/medial branches on the right side for 4 minutes at 80 ?C. Patient tolerated the procedure well with no complication. Plan and Disposition:: We will follow-up with her in 2 weeks. Will reevaluate symptoms at that time.
[2019-08-07 11:59] VITALS: BP 124/68; PULSE 66; RESP 20; O2SAT 98
== END 2019-08-07 12:01 | disposition home or self-care (01) ==
LOC: SC.PAINP 10:26
PROVIDERS: PCP Physician Assistant; Visit Provider Anesthesiology
DX: M51.36 Other intervertebral disc degeneration, lumbar region (principal); M47.816 Spondylosis without myelopathy or radiculopathy, lumbar region; M54.06 Panniculitis affecting regions of neck and back, lumbar region
CPT/HCPCS: 64635; 64636; J1040; Q9966

== ENCOUNTER → 2019-09-28 14:46 | Outpatient (POV) | payer OTHER, SELFPAY ==
[2019-09-28 15:19] VITALS: BP 117/72; PULSE 81; RESP 18; O2SAT 98; BMI 50.8
--- NOTE | 2019-09-28 16:14 | HMH.PAINSOAP ---
[facility] Pain Management SOAP Note Subjective:: Patient is a pleasant 39-year-old white female we are treating for low back pain. Patient states that she is doing well after her RFA however she has a new left-sided lower pain radiating into her groin down into her hip. Patient rates this pain 8 out of 10 she has difficulty walking. Patient has a positive Maldonado's test SI joint compression test and Cece test on the left side. Patient is tried a stretching program along with anti-inflammatories with no relief. Patient has tried gabapentin the past with no relief. Patient had Lyrica with relief in the past. We discussed restarting this. ROS General: no recent weight change, no fever, no sleep disturbances Respiratory: no cough, no shortness of air, no recurring pulmonary infections Cardiovascular/Peripheral Vascular: No chest pain, No palpitations, no edema, no shortness of breath. Gastrointestinal: no new onset incontinence, normal bowel movements reported Genitourinary: no new onset incontinence Musculoskeletal: Back pain, SI joint pain Psychiatric: normal mood/ affect Neurological: [denies new onset weakness in extremities], [denies new onset balance issues] Objective:: Physical Exam General: Alert and oriented x3, no acute distress, pleasant and cooperative, [on room air] Lungs: Resps E/U, Symmetrical chest expansion, Eyes: PERRL Musculoskeletal: Flexion and extension of lumbar spine somewhat guarded secondary to pain, deep tendon reflexes normal, strength in upper and lower extremities [5/5], [abnormal gait noted] Neurological: speech clear, multigraph operator equal, no gross sensory deficits Assessment:: Degenerative disc disease lumbar spine with lumbar spondylosis facet arthropathy lumbar spine and sacroiliitis Plan:: We will schedule her for left SI joint injection. We will also start her on pregabalin 75 mg 1 p.o. twice daily. She is been instructed to call the office if she has any issues prior to her next appointment. I will follow-up with her after this reassess her symptoms at that time. Dr. José has reviewed this note and agrees with this plan of care. This note was dictated using voice recognition software and may contain errors or omissions [facility] History I have reviewed the patient's past medical history: Yes Medical History: Reports:: Anxiety, Hyperlipidemia, Hypertension Denies:: Cancer, Diabetes Mellitus Type 1, Diabetes Mellitus Type 2, MRSA, Seizures *Have you ever received a pneumonia vaccine?: Yes *Have you received a flu vaccine this season?: Yes Other Medical History: Reports: Anemia, Hypothyroidism. Denies: Blood Transfusion Reaction Laterality Cases: Bilateral: Tonsillectomy Other Surgeries: Yes: Dilation and Curettage, Tubal Ligation Amputation: No Fractures: No - *Social History Smoking Status: Current some day smoker Tobacco Type: cigarettes # Packs/Day (cigarettes): 1 Alcohol Intake: never Alcohol Intake Frequency:: holidays/special occasions only Substance Use Type: denies use *Occupational Status:: other Housing: house Household Members: spouse, children *Travel in the last 8 weeks: None - Psychiatric History Pschychiatric History:: Reports:: Anxiety Family Hx:: Diabetes, Coronary Artery Disease, Hypertension
== END ==
PROVIDERS: PCP Physician Assistant; Visit Provider Clinical Nurse Specialist Family Health
DX: M51.36 Other intervertebral disc degeneration, lumbar region (principal); M46.1 Sacroiliitis, not elsewhere classified; M12.88 Other specific arthropathies, not elsewhere classified, other specified site
CPT/HCPCS: 99212

== ENCOUNTER 2019-10-16 12:56 | Day surgery (SDC) | payer OTHER, SELFPAY ==
[2019-10-16 13:14] VITALS: BP 119/71; PULSE 85; RESP 18; TEMP 36.2; O2SAT 98
[2019-10-16 13:40] VITALS: BP 138/88; PULSE 88; RESP 18; O2SAT 98
[2019-10-16 13:41] VITALS: BP 145/88; PULSE 89; RESP 18; O2SAT 99
--- NOTE | 2019-10-16 13:41 | HMH.PMPROC ---
- Procedure Date: 10/16/19 Time: 13:41 Anesthesiologist:: Teo José MD Complications:: None Pre-procedure Diagnosis:: Sacroiliitis Post-procedure Diagnosis:: Same Indications for Procedure:: This patient is a pleasant 39-year-old white female who we are treating for left-sided knee pain. She is tender over her left SI joint. She has positive SI joint compression test. She has a positive Maldonado test on left side. She has a positive Cece test on left side. We will do a left SI joint injection today to help her with her pain symptoms. Procedure Details:: Left SI joint injection under fluoroscopy Informed consent was obtained and the risks and benefits of the procedure was explained to the patient. Patient was taken to the procedure room. Patient was placed prone on the procedure table. The left hip was prepped using ChloraPrep. The skin and subcutaneous tissues were anesthetized using lidocaine. I placed a 22-gauge spinal needle into the inferior aspect of the left SI joint. Needle placement was confirmed with dye. After this we injected 5 mL bupivacaine 0.25% and Depo-Medrol 40 mg into the left SI joint. The patient tolerated the procedure well with no complication. Plan and Disposition:: We will follow-up with her in 2 weeks. Will reevaluate her symptoms at that time.
[2019-10-16 13:43] VITALS: BP 150/84; PULSE 81; RESP 20; O2SAT 98
== END 2019-10-16 13:45 | disposition home or self-care (01) ==
LOC: SC.PAINP 12:56
PROVIDERS: PCP Physician Assistant; Visit Provider Anesthesiology
DX: M46.1 Sacroiliitis, not elsewhere classified (principal); I10 Essential (primary) hypertension; E03.9 Hypothyroidism, unspecified; M19.90 Unspecified osteoarthritis, unspecified site; Z90.89 Acquired absence of other organs; E55.9 Vitamin D deficiency, unspecified; E78.5 Hyperlipidemia, unspecified; F32.9 Major depressive disorder, single episode, unspecified; Z79.899 Other long term (current) drug therapy
CPT/HCPCS: 27096; G0260; J1040; Q9966

== ENCOUNTER → 2019-11-05 09:31 | Outpatient (POV) | payer OTHER, SELFPAY ==
[2019-11-05 09:54] VITALS: BP 145/85; PULSE 88; RESP 18; TEMP 36.8; O2SAT 99; BMI 50.8
--- NOTE | 2019-11-05 09:59 | HMH.PAINSOAP ---
[facility] Pain Management SOAP Note Subjective:: Patient is a 39-year-old white female who presents today for follow-up. She has been treated for low back pain with left leg pain. Patient did undergo a left SI joint injection. Patient says that she got a week of relief, however, her pain has returned. She says that it is worse in her low back area with radiation into her left lateral thigh and causing numbness into her calf. She says that it is severe to the point that she is unable to tolerate the pain. She is very tearful today. Patient is currently taking Flexeril 10 mg 1 tablet p.o. 3 times daily. She says she is not having any drowsiness with the medication and it does give her some relief. She is also taking diclofenac. Patient was previously prescribed gabapentin per Dr. MARISOL Holden in 2019. She did have some of this medication left over and has been taking it. This did give her some relief, however, it causes her to be too sleepy and drowsy. Patient says that the pain is worse with standing and walking. She says it is also painful with sitting. She does have to reposition often during the assessment. Review of Systems General: No recent weight changes, no fever, no sleep disturbances Respiratory: No cough, no shortness of air, no recurring pulmonary infections Cardiovascular/peripheral vascular: No chest pain, no palpitations, no edema, no shortness of breath Gastrointestinal: No new onset incontinence, normal bowel movements reported Genitourinary: No new onset incontinence Musculoskeletal: Low back pain, left leg pain with numbness and tingling Psychiatric: Normal mood/affect Neurological: [Denies weakness in extremities], [denies balance issues] Objective:: Physical exam General: Alert and oriented x3, no acute distress, pleasant and cooperative, [on room air] Lungs: Respirations even and unlabored, symmetrical chest expansion Eyes: PERRL Musculoskeletal: Flexion and extension of lumbar spine somewhat guarded secondary to pain, deep tendon reflexes normal, strength in upper and lower extremities [5/5], [abnormal gait noted] Neurological: Speech clear, mine analyst equal, no gross sensory deficit Assessment:: Degenerative disc disease spine with lumbar radiculopathy symptoms, sacroiliitis Plan:: We will schedule the patient for a lumbar epidural steroid injection at L4-L5. She is not on any anticoagulation therapy. She does have imaging of her lumbar spine. We will also start her on pregabalin 75 mg 1 tablet p.o. twice daily. I have told her to stop taking her gabapentin that she has left over. She will continue with her diclofenac and Flexeril. We will see her back in the clinic after her injection to reassess her symptoms. She has been instructed to contact the clinic if she has any concerns before her next appointment. The patient and I specifically discussed risk factors for COVID19. These risks include, but are not limited to age greater than 60, heart or lung disease, diabetes, immunosuppression, and travel. We also discussed NSAIDs may worsen COVID19 infection or symptoms. Patient should not use NSAIDs to treat COVID19 signs or symptoms. Patient was also informed that any type of corticosteroid of any form (oral or injection) will decrease the patient's immune system response and may increase the likelihood of COVID19 infection [address] symptoms[address] José has reviewed this note and agrees with this plan of care. This note was dictated using voice recognition software and make contain errors or omissions. [facility] History I have reviewed the patient's past medical history: Yes Medical History: Reports:: Anxiety, Hyperlipidemia, Hypertension Denies:: Cancer, Diabetes Mellitus Type 1, Diabetes Mellitus Type 2, MRSA, Seizures *Have you ever received a pneumonia vaccine?: Yes *Have you received a flu vaccine this season?: Yes Other Medical History: Reports: Anemia, Arthritis, Hypothyroidism. Denies: Blood Transfusion React
== END ==
PROVIDERS: PCP Physician Assistant; Visit Provider Clinical Nurse Specialist Family Health
DX: M51.16 Intervertebral disc disorders with radiculopathy, lumbar region (principal); M46.1 Sacroiliitis, not elsewhere classified
CPT/HCPCS: 99212

== ENCOUNTER → 2019-11-05 17:10 | Outpatient (CLI) | payer OTHER, SELFPAY ==
[2019-11-05 17:46] LABS: Basophils # 0.1 K/mm3 (0-0.2); Basophils % 0.9 % (0.1-2.0); Eosinophils # 0.5 K/mm3 (0.0-0.4); Eosinophils % 4.1 % (0.1-12.0); Hematocrit 34.9 % (37.0-47.0); Lymphocytes # 3.4 K/mm3 (0.7-4.5); Lymphocytes % 28.4 % (10-50); Mean Corpuscular Hemoglobin 35.6 pg (27.0-31.2); Mean Corpuscular Volume 88.6 fl (81-99); Mean Platelet Volume 7.2 fl (7.4-10.4); Monocytes # 0.7 K/mm3 (0.1-1.0); Neutrophils # 7.4 K/mm3 (1.8-7.8); Neutrophils % 60.8 % (37.0-80.0); Platelet Count 347 K/mm3 (142-424); Red Blood Count 3.93 M/mm3 (4.20-5.40); Red Cell Distribution Width 13.9 % (11.5-17.5); White Blood Count 12.1 K/mm3 (4.8-10.8)
[2019-11-05 17:55] LABS: Mean Corpuscular HGB Conc 40.1 g/dL (31.8-35.4)
[2019-11-05 20:44] LABS: Chloride 103 mmol/L (98-107); Potassium 4.7 mmoL/L (3.5-5.1); Sodium 141 mmol/L (136-145)
[2019-11-05 20:46] LABS: Blood Urea Nitrogen 15 mg/dl (7-17); Estimated Glomerular Filt Rate 80 ml/min (>60); GFR (African American) 97 ML/MIN (>60)
[2019-11-05 20:47] LABS: Alanine Aminotransferase 25 U/L (12-78); Albumin Level 4.2 g/dl (3.5-5.0); Albumin/Globulin Ratio 1.4 (1.1-1.8); Alkaline Phosphatase 88 U/L (38-126); Anion Gap 16.7 mEq/L (5-15); Aspartate Amino Transferase 27 U/L (14-36); Bilirubin,Total 0.5 mg/dl (0.2-1.3); Calcium 9.9 mg/dl (8.4-10.2); Carbon Dioxide 26 mmol/L (22.0-30.0); Chol/HDL Ratio 3.3 (1-3.5); Cholesterol 184 mg/dl (140-200); Globulin 3.1 g/dL (1.3-3.2); Glucose 99 mg/dl (74-100); HDL Cholesterol 55 mg/dl (40-60); Total Protein,Serum 7.3 g/dl (6.3-8.2); Triglycerides 187 mg/dl (30-150); VLDL Cholesterol 37 mg/dL (0-40)
[2019-11-05 20:58] LABS: Direct LDL Cholesterol 113.98 mg/dL (100-129)
[2019-11-05 21:18] LABS: Thyroid Stimulating Hormone 1.54 uIU/mL (0.465-4.68)
[2019-11-05 23:21] LABS: 25-OH Vitamin D, Total 45.5 ng/mL (30-100)
== END ==
PROVIDERS: Visit Provider Physician Assistant
DX: I10 Essential (primary) hypertension (principal); E78.5 Hyperlipidemia, unspecified; E03.9 Hypothyroidism, unspecified
CPT/HCPCS: 80053; 80061; 82306; 84436; 84443; 85025

== ENCOUNTER 2019-11-20 08:59 | Day surgery (SDC) | payer OTHER, SELFPAY ==
[2019-11-20 09:12] VITALS: BP 137/84; PULSE 81; RESP 18; TEMP 36.1; O2SAT 98; BMI 50.3
[2019-11-20 09:34] VITALS: BP 138/88; PULSE 87; RESP 18; O2SAT 98
[2019-11-20 09:35] VITALS: BP 160/78; PULSE 74; RESP 18; O2SAT 99
--- NOTE | 2019-11-20 09:44 | HMH.PMPROC ---
- Procedure Date: 11/20/19 Time: 09:44 Anesthesiologist:: Teo José MD Complications:: None Pre-procedure Diagnosis:: Degenerative disc disease of lumbar spine with lumbar radiculopathy symptoms Post-procedure Diagnosis:: Same Indications for Procedure:: This patient is a pleasant 39-year-old white female who we are treating for low back pain and left hip pain and left leg pain. She did undergo a left SI joint injection which helped her tremendously. She had 70 to 80% relief in her pain symptoms for approximately 1 week. Pain is now come back. Will do lumbar epidural steroid injection at L5-S1 on the left side to see if this gives her additional long-term pain relief. Procedure Details:: Lumbar epidural steroid injection under fluoroscopy Informed consent was obtained and the risk and benefits of the procedure was explained to the patient. The patient was taken to the procedure room. The patient was placed prone on the procedure table. The patient was prepped and draped in sterile fashion. C-arm fluoroscopy was used to view the lumbar spine. Skin and subcutaneous tissues were anesthetized using lidocaine. I placed an 18-gauge epidural needle and advanced into the L4-L5 interspace using fluoroscopic guidance and [id number] to air. After confirmation of needle placement in the epidural space with dye I injected 2 mL of lidocaine 1.5% with Depo-Medrol 80 mg. Patient tolerated the procedure well with no complications. Plan and Disposition:: We will follow-up with her in 2 weeks. Will reevaluate symptoms at that time. If this does not provide her as much relief for more than the SI joint injection we will do a repeat left SI joint injection and again if she gets at least 80% relief to be a candidate for SI joint stabilization.
[2019-11-20 09:51] VITALS: BP 122/67; PULSE 69; RESP 18; O2SAT 98
== END 2019-11-20 09:53 | disposition home or self-care (01) ==
LOC: SC.PAINP 09:00
PROVIDERS: PCP Physician Assistant; Visit Provider Anesthesiology
DX: M51.16 Intervertebral disc disorders with radiculopathy, lumbar region (principal); I10 Essential (primary) hypertension; Z87.442 Personal history of urinary calculi; Z98.51 Tubal ligation status; Z90.89 Acquired absence of other organs; F32.9 Major depressive disorder, single episode, unspecified; F41.9 Anxiety disorder, unspecified; E78.5 Hyperlipidemia, unspecified; E03.9 Hypothyroidism, unspecified; E66.9 Obesity, unspecified; Z68.43 Body mass index [BMI] 50.0-59.9, adult; Z79.899 Other long term (current) drug therapy
CPT/HCPCS: 62323; J1040; Q9966

== ENCOUNTER → 2019-12-14 10:17 | Outpatient (POV) | payer OTHER, SELFPAY ==
[2019-12-14 10:38] VITALS: BP 108/69; PULSE 74; RESP 18; TEMP 36.8; O2SAT 98; BMI 50.3
--- NOTE | 2019-12-14 10:55 | HMH.PAINSOAP ---
[facility] Pain Management SOAP Note Subjective:: She is a very pleasant 39-year-old white female who presents today for follow-up after her lumbar epidural steroid injection. She did get relief rating it a 4 out of 10 however she states she gets much better relief after left SI joint injections. She gets 80% relief for up to a week with her injections. Patient and I had a long discussion about a corner lock procedure. Patient would like to move forward with an additional SI joint injection to see if this would be beneficial for her. Patient has a positive Cece test SI joint compression test and Maldonado's test on the left side. She is not on any anticoagulation therapy. We will set her up for this. She is tried and failed physical therapy, anti-inflammatory, the other injective therapies. She is try to stay as active as possible. ROS General: no recent weight change, no fever, no sleep disturbances Respiratory: no cough, no shortness of air, no recurring pulmonary infections Cardiovascular/Peripheral Vascular: No chest pain, No palpitations, no edema, no shortness of breath. Gastrointestinal: no new onset incontinence, normal bowel movements reported Genitourinary: no new onset incontinence Musculoskeletal: SI joint pain on the left side Psychiatric: normal mood/ affect Neurological: [denies new onset weakness in extremities], [denies new onset balance issues] Objective:: Physical Exam General: Alert and oriented x3, no acute distress, pleasant and cooperative, [on room air] Lungs: Resps E/U, Symmetrical chest expansion, Eyes: PERRL Musculoskeletal: Flexion and extension of lumbar spine somewhat guarded secondary to pain, deep tendon reflexes normal, strength in upper and lower extremities [5/5], antalgic gait noted Neurological: speech clear, casino runner equal, no gross sensory deficits Assessment:: Degenerative disc disease lumbar spine with lumbar radiculopathy symptoms Plan:: We will schedule her for a left SI joint injection with Dr. José to help determine if she is a good candidate for corner lock procedure. I did give her information in regards to this. She has been instructed to call the office if she has any issues prior to her next appointment. Dr. José has reviewed this note and agrees with this plan of care. This note was dictated using voice recognition software and may contain errors or omissions [facility] History I have reviewed the patient's past medical history: Yes Medical History: Reports:: Anxiety, Hyperlipidemia, Hypertension Denies:: Cancer, Diabetes Mellitus Type 1, Diabetes Mellitus Type 2, MRSA, Seizures *Have you ever received a pneumonia vaccine?: Yes *Have you received a flu vaccine this season?: Yes Other Medical History: Reports: Anemia, Arthritis, Hypothyroidism. Denies: Blood Transfusion Reaction Laterality Cases: Bilateral: Tonsillectomy Other Surgeries: Yes: Dilation and Curettage, Tubal Ligation Amputation: No Fractures: No - *Social History Smoking Status: Never smoker Tobacco Type: cigarettes # Packs/Day (cigarettes): 1 Alcohol Intake: never Alcohol Intake Frequency:: holidays/special occasions only Substance Use Type: denies use *Occupational Status:: other Housing: house Household Members: spouse *Travel in the last 8 weeks: None - Psychiatric History Pschychiatric History:: Reports:: Anxiety Family Hx:: No significant family history
== END ==
PROVIDERS: PCP Physician Assistant; Visit Provider Clinical Nurse Specialist Family Health
DX: M51.16 Intervertebral disc disorders with radiculopathy, lumbar region (principal)
CPT/HCPCS: 99212

== ENCOUNTER 2019-12-21 15:13 | Day surgery (SDC) | payer OTHER, SELFPAY ==
[2019-12-21 15:29] VITALS: BP 107/64; PULSE 91; RESP 18; TEMP 37.1; O2SAT 98; BMI 50.3
[2019-12-21 16:10] VITALS: BP 132/78; BP 142/78; PULSE 65; PULSE 89; RESP 18; O2SAT 98
--- NOTE | 2019-12-21 16:13 | P.PCN_ITS ---
- Procedure Date: 12/21/19 Time: 16:13 Anesthesiologist:: Bernie Rosen APRN Complications:: None Pre-procedure Diagnosis:: Sacroiliitis chronic Post-procedure Diagnosis:: Same Indications for Procedure:: She is a very pleasant 39-year-old white female who presents today for SI joint injection. Patient has had several SI joint injections and she does get temporary relief. When she does get relief she is over 90% relief of her symptomology patient is interested in a corner lock procedure. If she gets relief from this injection we will move forward with an corner lock procedure. Patient rates her pain today a 5 out of 10. She is a positive Cece test SI joint compression test and Maldonado's test on the left side. She has had epidural injections in the past however they have not given her relief as the SI joint injections. Physical Exam General: Alert and oriented x3, no acute distress, pleasant and cooperative, [on room air] Lungs: Resps E/U, Symmetrical chest expansion, Eyes: PERRL Musculoskeletal: Flexion and extension of lumbar spine somewhat guarded secondary to pain, deep tendon reflexes normal, strength in upper and lower extremities [5/5], [abnormal gait noted] Neurological: speech clear, editorial cartoonist equal, no gross sensory deficits Procedure Details:: Informed consent was obtained and the risks and benefits of the procedure were explained to the patient. Patient was taken to the procedure room. Patient was placed prone on the procedure table. The left hip was prepped using ChloraPrep as a cleansing solution. The skin and subcutaneous tissues were anesthetized using lidocaine. Using fluoroscopic guidance I placed a 22-gauge spinal needle into the inferior aspect of the left SI joint. After this I injected 5 mL bupivacaine 0.25% and Depo-Medrol 40 mg into the left SI joint. The patient tolerated the procedure well with no complication. Plan and Disposition:: We will follow-up with the patient several weeks reassess her symptoms at that time if she is relief from this injection we will plan on moving forward with a corner lock procedure. Dr. José has reviewed this note and agrees with this plan of care. This note was dictated using voice recognition software and may contain errors or omissions
[2019-12-21 16:17] VITALS: BP 112/72; PULSE 81; RESP 18; O2SAT 98
== END 2019-12-21 16:18 | disposition home or self-care (01) ==
LOC: SC.PAINP 15:15
PROVIDERS: PCP Physician Assistant; Visit Provider Clinical Nurse Specialist Family Health
DX: M46.1 Sacroiliitis, not elsewhere classified (principal); I10 Essential (primary) hypertension; F41.9 Anxiety disorder, unspecified; F32.9 Major depressive disorder, single episode, unspecified; G43.909 Migraine, unspecified, not intractable, without status migrainosus; Z90.89 Acquired absence of other organs; Z98.51 Tubal ligation status; Z87.442 Personal history of urinary calculi; E03.9 Hypothyroidism, unspecified; Z88.8 Allergy status to other drugs, medicaments and biological substances; Z79.899 Other long term (current) drug therapy
CPT/HCPCS: 27096; G0260; J1040; Q9966

== ENCOUNTER → 2020-01-04 09:29 | Outpatient (POV) | payer OTHER, SELFPAY ==
[2020-01-04 11:04] VITALS: BP 130/69; PULSE 74; RESP 18; O2SAT 98; BMI 50.3
--- NOTE | 2020-01-04 11:33 | HMH.PAINSOAP ---
[facility] Pain Management SOAP Note Subjective:: Patient is a 39-year-old white female who presents today for follow-up after a SI joint injection. Patient says that she got approximately 90% relief after her injection. She has discussed possible corner lock procedure with previous providers and says that she would like to proceed with the procedure. Patient does get approximately 90% relief after the SI injections for up to 2 to 3 weeks. Patient does have pain in her left low back area with radiation into her left buttock left hip and left leg. Patient does rate her pain a 2 out of 10 today. Review of Systems General: No recent weight changes, no fever, no sleep disturbances Respiratory: No cough, no shortness of air, no recurring pulmonary infections Cardiovascular/peripheral vascular: No chest pain, no palpitations, no edema, no shortness of breath Gastrointestinal: No new onset incontinence, normal bowel movements reported Genitourinary: No new onset incontinence Musculoskeletal: Left low back pain with radiation into left buttock, left hip, and left leg Psychiatric: Normal mood/affect Neurological: [Denies weakness in extremities], [denies balance issues] Objective:: Physical exam General: Alert and oriented x3, no acute distress, pleasant and cooperative, [on room air] Lungs: Respirations even and unlabored, symmetrical chest expansion Eyes: PERRL Musculoskeletal: Flexion and extension of lumbar spine somewhat guarded secondary to pain, deep tendon reflexes normal, strength in upper and lower extremities [5/5], [abnormal gait noted], positive Dolomite's test, positive Maldonado's test, positive SI compression test Neurological: Speech clear, physics department chair equal, no gross sensory deficit Assessment:: Sacroiliitis chronic Plan:: Patient has had successful SI joint injections to the left side. She got approximately 90% relief. She is tried physical therapy along with a continued home stretching program. She also continues use ice and heat therapies along with an anti-inflammatory. We will schedule her for a left SI stabilization procedure. She is not on any anticoagulation therapy. We will see her back in the clinic after her procedure to reassess her symptoms. She has been instructed to contact clinic if she has any concerns before her next appointment. The patient and I specifically discussed risk factors for COVID19. These risks include, but are not limited to age greater than 60, heart or lung disease, diabetes, immunosuppression, and travel. We also discussed NSAIDs may worsen COVID19 infection or symptoms. Patient should not use NSAIDs to treat COVID19 signs or symptoms. Patient was also informed that any type of corticosteroid of any form (oral or injection) will decrease the patient's immune system response and may increase the likelihood of COVID19 infection and symptoms. Dr. José has reviewed this note and agrees with this plan of care. This note was dictated using voice recognition software and make contain errors or omissions. [facility] History I have reviewed the patient's past medical history: Yes Medical History: Reports:: Anxiety, Hyperlipidemia, Hypertension Denies:: Cancer, Diabetes Mellitus Type 1, Diabetes Mellitus Type 2, MRSA, Seizures *Have you ever received a pneumonia vaccine?: Yes *Have you received a flu vaccine this season?: Yes Other Medical History: Reports: Anemia, Arthritis, Hypothyroidism. Denies: Blood Transfusion Reaction Laterality Cases: Bilateral: Tonsillectomy Other Surgeries: Yes: Dilation and Curettage, Tubal Ligation Amputation: No Fractures: No - *Social History Smoking Status: Never smoker Tobacco Type: cigarettes # Packs/Day (cigarettes): 1 Alcohol Intake: never Alcohol Intake Frequency:: holidays/special occasions only Substance Use Type: denies use *Occupational Status:: other Housing: house Household Members: spouse, children *Travel in the last 8 weeks: None - Psychiatric
== END ==
PROVIDERS: PCP Physician Assistant; Visit Provider Clinical Nurse Specialist Family Health
DX: M46.1 Sacroiliitis, not elsewhere classified (principal)
CPT/HCPCS: 99212

== ENCOUNTER 2020-01-20 02:16 | Emergency (ER) | payer OTHER, SELFPAY ==
[2020-01-20 02:29] VITALS: BP 134/76; PULSE 116; RESP 18; TEMP 37.2; O2SAT 98; BMI 50.8
--- NOTE | 2020-01-20 02:37 | CT_ITS ---
PROCEDURE: CT ABDOMEN PELVIS W CON CLINICAL INDICATION: belly pain Left-sided abdominal pain with fever and chills COMPARISON: No exams were available for comparison TECHNIQUE: IV Contrast: 75ML OPTIRAY 350 Oral Contrast None Axial images obtained with sagittal and coronal reformats. All CT scans at the facility use one or more dose reduction, viz: automated exposure control, ma/kV adjustment per patient size (including targeted exams where dose is matched to indication, i.e. head), or iterative reconstruction technique. FINDINGS: LOWER THORAX: There is diffuse fatty liver infiltration. No focal liver lesion is evident. The gallbladder, spleen, adrenal glands, pancreas, have an unremarkable appearance. There are bilateral nonobstructing renal calculi measuring up to 3 mm on the right and up to 7 mm on the left. Partially duplicated left renal collecting system noted with indication at the L4-5 level. There is stranding of the left perinephric fat and stranding of the periureteral fat with heterogeneous parenchymal decreased attenuation in the upper pole of the left kidney consistent with left-sided pyelonephritis. No ureteral calculi. No hydronephrosis. No evidence abscess. No pelvic mass or abnormal fluid collection is evident. No acute bony findings. IMPRESSION: 1. Left-sided pyelonephritis. 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 2. Bilateral nephrolithiasis. 3. Fatty liver Dictated by: Rajat Martinez MD 01/20/2020 07:16 Rajat Martinez MD in [place] 01/20/2020 07:16
--- NOTE | 2020-01-20 02:44 | HMH.EDNVD ---
ED Disposition Clinical Impression: Pyelonephritis, SIRS (systemic inflammatory response syndrome) UTI (urinary tract infection) Qualifiers: Urinary tract infection type: acute pyelonephritis Qualified Code(s): N10 - Acute pyelonephritis Disposition: Home, Self-Care Condition on Discharge: Good Instructions: DI for Urinary Tract Infection (UTI) Additional Instructions: fluids and call pcp for culture results Prescriptions: levoFLOXacin [Levaquin 500mg tab] 500 mg PO DAILY #7 tab Transmission Status: Pending to [id number] Referrals: Trice Sherman PA [Primary Care Provider] - - Critical Care Critical Care Time: No Attestation: On , the high probability of a clinically significant, sudden or life threatening deterioration of the following system(s) required my full and direct attention, intervention and personal management. The time I documented below is in addition to time spent performing reported procedures but includes the following listed in this critical care notation. Medical Decision Making - Medical Records Medical records reviewed: Yes: I reviewed the patient's medical records. - Valeriano Inquiry Pt receiving controlled substance: No Vital Signs: 01/20/20 02:29 01/20/20 03:44 01/20/20 04:23 Temperature 98.9 F Temperature Source Oral Pulse Rate [Right Brachial] 116 H 101 H 97 H Respiratory Rate 18 17 Blood Pressure [Right Arm] 134/76 121/75 137/71 Blood Pressure Mean [Right Arm] 95 90 93 Blood Pressure Source [Right Arm] Automatic Cuff Automatic Cuff Blood Pressure Position [Right Arm] Sitting Sitting 02 Sat by Pulse Oximetry 98 96 96 Oxygen Delivery Method Room Air Room Air Room Air - Lab Data Lab results reviewed: Yes: I reviewed the patient's lab results. Lab Results 01/20/20 02:50: Urine Color Yellow, Urine Appearance Clear, Urine pH 6.0, Ur Specific [place] 1.025, Urine Protein 1+, Urine Glucose (UA) Negative, Urine Ketones Negative, Urine Blood Trace-i, Urine Nitrate Positive, Urine Bilirubin Negative, Urine Urobilinogen 2.0, Ur Leukocyte Esterase Trace, Urine RBC 3-5, Urine WBC 10-20, Ur Squamous Epith Cells 10-20, Amorphous Sediment 1+, Urine Bacteria 2+, Urine Mucus 1+ 01/20/20 02:50: WBC 17.1 H, RBC 4.41, Hgb 13.0, Hct 39.5, MCV 89.4, MCH 29.4, MCHC 32.8, RDW 13.7, Plt Count 406, MPV 6.9 L, Neut % (Auto) 82.4 H, Lymph % (Auto) 8.6 L, Bon[place] % (Auto) 7.8, Eos % (Auto) 0.8, Baso % (Auto) 0.4, Neut # (Auto) 14.1 H, Lymph # (Auto) 1.5, Bonner # (Auto) 1.3 H, Eos # (Auto) 0.1, Baso # (Auto) 0.1, Total Counted 100, Neutrophils % (Manual) 85 H, Lymphocytes % (Manual) 13, Monocytes % (Manual) 2, Platelet Estimate Normal, RBC Morphology Normal 01/20/20 02:50: Sodium 136, Potassium 3.6, Chloride 98, Carbon Dioxide 28, Anion Gap 13.6, BUN 13, Creatinine 0.80, Estimated Creat Clear 68, Estimated GFR 80, Est GFR ( Amer) 97, Glucose 140 H, Calcium 9.4, Total Bilirubin 0.7, AST 49 H, ALT 51, Alkaline Phosphatase 114, Total Protein 7.9, Albumin 4.3, Globulin 3.6 H, Albumin/Globulin Ratio 1.2, Amylase 58, Lipase 115 01/20/20 02:50: Influenza Type A Ag Negative, Influenza Type B Ag Negative 01/20/20 02:50: Group A Strep Rapid Negative 01/20/20 02:50: Monoscreen Negative 01/20/20 02:50: SARS-CoV-2 IgG Ab (Rapid) Negative, SARS-CoV-2 IgM Ab (Rapid) Negative 01/20/20 04:07: Lactate 1.0 Result diagrams: 01/20/20 02:50 01/20/20 02:50 Orders (Tests/Meds): ED MEDICATIONS Generic Name Dose Route Start Last Admin Trade Name Freq PRN Reason Stop Dose Admin Sodium Chloride 1,000 mls @ 999 mls/hr 01/20/20 03:15 01/20/20 03:05 Sod Chlor 0.9% 1000ml Bag IV 01/20/20 04:15 999 mls/hr .[id number] SELIN Administration Ceftriaxone Sodium 1 gm/ 50 mls @ 100 mls/hr 01/20/20 04:45 Sodium Chloride IV 02/03/20 04:44 Q24H SELIN Protocol Discontinued Medications Generic Name Dose Route Start Last Admin Trade Name Freq PRN Reason Stop Dose Admin Ketorolac Trometham
--- NOTE | 2020-01-20 02:45 | XR_ITS ---
PROCEDURE: XR CHEST 2V CLINICAL HISTORY: lt sided pain COMPARISON: No exams were available for comparison FINDINGS: The cardiomediastinal silhouette and pulmonary vascularity are within normal limits. The lungs are clear without infiltrates, suspicious nodules, or pleural effusions. No acute bony abnormalities. IMPRESSION: No acute findings. Dictated by: Rajat Martinez MD 01/20/2020 05:45 Rajat Martinez MD in [place] 01/20/2020 05:45
[2020-01-20 03:14] LABS: Microscopic, Urine URINE MICROSCOPIC (MICROSCOPIC)
[2020-01-20 03:17] LABS: Basophils # 0.1 K/mm3 (0-0.2); Basophils % 0.4 % (0.1-2.0); Eosinophils # 0.1 K/mm3 (0.0-0.4); Eosinophils % 0.8 % (0.1-12.0); Hematocrit 39.5 % (37.0-47.0); Lymphocytes # 1.5 K/mm3 (0.7-4.5); Lymphocytes % 8.6 % (10-50); Mean Corpuscular HGB Conc 32.8 g/dL (31.8-35.4); Mean Corpuscular Hemoglobin 29.4 pg (27.0-31.2); Mean Corpuscular Volume 89.4 fl (81-99); Mean Platelet Volume 6.9 fl (7.4-10.4); Monocytes # 1.3 K/mm3 (0.1-1.0); Monocytes % 7.8 % (1.7-9.3); Neutrophils # 14.1 K/mm3 (1.8-7.8); Neutrophils % 82.4 % (37.0-80.0); Platelet Count 406 K/mm3 (142-424); Red Blood Count 4.41 M/mm3 (4.20-5.40); Red Cell Distribution Width 13.7 % (11.5-17.5); White Blood Count 17.1 K/mm3 (4.8-10.8)
[2020-01-20 03:24] LABS: Alanine Aminotransferase 51 U/L (12-78); Albumin Level 4.3 g/dl (3.5-5.0); Albumin/Globulin Ratio 1.2 (1.1-1.8); Alkaline Phosphatase 114 U/L (38-126); Amylase 58 U/L (30-110); Anion Gap 13.6 mEq/L (5-15); Aspartate Amino Transferase 49 U/L (14-36); Bilirubin,Total 0.7 mg/dl (0.2-1.3); Blood Urea Nitrogen 13 mg/dl (7-17); Calcium 9.4 mg/dl (8.4-10.2); Carbon Dioxide 28 mmol/L (22.0-30.0); Chloride 98 mmol/L (98-107); Creatinine Clearance Estimated 68 mL/min (50-200); Estimated Glomerular Filt Rate 80 ml/min (>60); GFR (African American) 97 ML/MIN (>60); Globulin 3.6 g/dL (1.3-3.2); Glucose 140 mg/dl (74-100); Lipase 115 U/L (23-300); Potassium 3.6 mmoL/L (3.5-5.1); Sodium 136 mmol/L (136-145); Total Protein,Serum 7.9 g/dl (6.3-8.2)
[2020-01-20 03:28] LABS: Appearance,Urine CLEAR (Clear); Bilirubin,Urine Negative (Negative); Blood, Urine TRACE-I (Negative); Color,Urine YELLOW (Yellow); Glucose,Urine (UA) Negative (Negative); Ketones,Urine Negative (Negative); Leukocyte Esterase,Urine TRACE (Negative); Nitrate,Urine POSITIVE (Negative); Protein,Urine 1+ (Negative); Specific Gravity, Urine 1.025 (1.005-1.030)
[2020-01-20 03:41] LABS: Monoscreen (Rapid) Negative (Negative)
[2020-01-20 03:42] LABS: MANUAL DIFFERENTIAL MANUAL DIFFERENTIAL (MANUAL DIFF)
[2020-01-20 03:44] VITALS: BP 121/75; PULSE 101; RESP 17; O2SAT 96
[2020-01-20 03:47] LABS: Strep Scrn Group A (Rapid) Negative (Negative)
[2020-01-20 03:57] LABS: Amorphous Sediment,Urine 1+ /lpf; Bacteria,Urine 2+ /lpf; Mucus,Urine 1+ /lpf
[2020-01-20 04:07] LABS: Lymphocytes % 13 % (10-50); Monocytes % 2 % (2-9); Neutrophils % 85 % (42-76); Platelet Estimate Normal; RBC Morphology Normal; Total Cells Counted 100
[2020-01-20 04:10] LABS: Coronavirus 19 IgG Antibody Negative (Negative); Coronavirus 19 IgM Antibody Negative (Negative)
[2020-01-20 04:23] VITALS: BP 137/71; PULSE 97; O2SAT 96
[2020-01-20 04:50] VITALS: BP 119/63; PULSE 92; RESP 17; TEMP 37.2; O2SAT 97
== END 2020-01-20 04:59 | disposition home or self-care (01) ==
PROVIDERS: Emergency Provider Emergency Medicine; PCP Physician Assistant
DX: N10 Acute pyelonephritis (principal); R65.10 Systemic inflammatory response syndrome (SIRS) of non-infectious origin without acute organ dysfunction; Z01.84 Encounter for antibody response examination; E78.5 Hyperlipidemia, unspecified; E03.9 Hypothyroidism, unspecified; F41.9 Anxiety disorder, unspecified; I10 Essential (primary) hypertension
CPT/HCPCS: 71046; 74177; 80053; 81001; 82150; 83605; 83690; 85007; 85025; 86318; 86328; 87040; 87077; 87086; 87088; 87186; 87275; 87276; 87430; 96365; 96375; 99284; J2405; Q9967

== ENCOUNTER → 2020-02-24 12:09 | Outpatient (CLI) | payer OTHER, SELFPAY ==
[2020-02-24 12:42] LABS: Basophils # 0.1 K/mm3 (0-0.2); Eosinophils # 0.5 K/mm3 (0.0-0.4); Hematocrit 41.1 % (37.0-47.0); Hemoglobin 13.7 g/dL (12.2-16.2); Lymphocytes # 3.2 K/mm3 (0.7-4.5); Mean Corpuscular HGB Conc 33.4 g/dL (31.8-35.4); Mean Corpuscular Hemoglobin 30.5 pg (27.0-31.2); Mean Corpuscular Volume 91.2 fl (81-99); Mean Platelet Volume 7.4 fl (7.4-10.4); Monocytes # 0.5 K/mm3 (0.1-1.0); Monocytes % 4.8 % (1.7-9.3); Neutrophils # 6.3 K/mm3 (1.8-7.8); Neutrophils % 59.1 % (37.0-80.0); Platelet Count 379 K/mm3 (142-424); Red Blood Count 4.51 M/mm3 (4.20-5.40); Red Cell Distribution Width 13.7 % (11.5-17.5); White Blood Count 10.6 K/mm3 (4.8-10.8)
[2020-02-24 13:34] LABS: Chloride 101 mmol/L (98-107); Sodium 138 mmol/L (136-145)
[2020-02-24 13:35] LABS: Potassium 4.9 mmoL/L (3.5-5.1)
[2020-02-24 13:38] LABS: Anion Gap 12.9 mEq/L (5-15); Blood Urea Nitrogen 16 mg/dl (7-17); Calcium 10.1 mg/dl (8.4-10.2); Carbon Dioxide 29 mmol/L (22.0-30.0); Estimated Glomerular Filt Rate 93 ml/min (>60); GFR (African American) 113 ML/MIN (>60); Glucose 119 mg/dl (74-100)
[2020-02-24 15:18] LABS: Coronavirus 19 IgG Antibody Negative (Negative); Coronavirus 19 IgM Antibody Negative (Negative)
== END ==
PROVIDERS: Visit Provider Anesthesiology
DX: Z01.818 Encounter for other preprocedural examination (principal); M53.3 Sacrococcygeal disorders, not elsewhere classified
CPT/HCPCS: 36415; 80048; 85025; 86328

== ENCOUNTER 2020-02-26 08:24 | Day surgery (SDC) | payer OTHER, SELFPAY ==
[2020-02-23 11:58] VITALS: BMI 48.8
[2020-02-26] VITALS (14 sets, daily range): BP systolic 92–133; BP diastolic 42–87; PULSE 68–92; RESP 16–18; TEMP 6.1–43; O2SAT 95–99
[2020-02-26 06:54] LABS: HCG Qualitative, Serum Negative (Negative)
--- NOTE | 2020-02-26 09:12 | HMH.ANESCL ---
[facility] Anesthesia Checklist - Structural Data Admitted From: Home Planned Operative Procedure/s: si joint fusion Consent for Planned Operative Procedure(s) Verified: Yes - Additional verifications Anesthesia Reactions: No Hx Blood Transfusions: No Blood Transfusion Reaction: No - Airway Assessment C-Spine Mobility Assessed: Yes TMJ Mobility Assessed: Yes Dentition: Good Dentition - Neurological Assessment Level of Consciousness: Awake, Alert, Appropriate - Anesthesia Plan Anesthesia Risk discussed: Yes Anesthesia Plan: Verified ASA Class: III Anesthesia Type: General [facility] History I have reviewed the patient's past medical history: Yes Medical History: Reports:: Anxiety, Hyperlipidemia, Hypertension Denies:: Cancer, Diabetes Mellitus Type 1, Diabetes Mellitus Type 2, Internal Pacemaker, MRSA, Seizures *Have you ever received a pneumonia vaccine?: No *Have you received a flu vaccine this season?: No Other Medical History: Reports: Anemia, Arthritis, Hypothyroidism. Denies: Blood Transfusion Reaction Anesthesia experience/problems:: none Laterality Cases: Bilateral: Tonsillectomy Other Surgeries: Yes: Dilation and Curettage, Tubal Ligation. No: Pacemaker Amputation: No Fractures: No - *Social History Last grade of school completed: High school graduate Smoking Status: Never smoker Tobacco Type: cigarettes # Packs/Day (cigarettes): 1 Alcohol Intake: never Alcohol Intake Frequency:: holidays/special occasions only Substance Use Type: denies use *Occupational Status:: unemployed Housing: house Household Members: spouse, children *Travel in the last 8 weeks: None - Psychiatric History Pschychiatric History:: Reports:: Anxiety Family Hx:: No significant family history
--- NOTE | 2020-02-26 11:52 | P.PN_ITS ---
[facility] Anesthesia Record Part I Intake, IV Amount: 1,200 Estimated blood loss (mL): 5 Urine output (mL): 0 Blood Pressure: 129/55 SaO2: 98 Pulse Rate: 82 Respiratory Rate: 16 Temperature: 98.5 F Patient is:: Drowsy, Stable Stable to PACU at:: 11:50
--- NOTE | 2020-02-26 12:10 | HMH.OPNOTE ---
Date of procedure: 02/26/20 Pre-op Diagnosis:: Sacroiliitis Post-op Diagnosis:: Same Procedure performed:: Left SI joint stabilization with Cornerlo Surgeon:: Teo José MD CNC ROUTER OPERATOR:: Narciso Morel Anesthesia: GETA Estimated blood loss (mL): 20 Clinical Note:: This patient is a pleasant 39-year-old white female who we have been treating for chronic sacroiliitis. She has had a few rounds of SI joint injections which have given her 80 to 90% relief in her pain symptoms for several weeks. These are not long-lasting. She is not a candidate for any further surgery. Since she has failed all conservative treatments including physical therapy and does not get long-lasting relief with injections she presents for SI joint stabilization today. We will do the left SI joint today. Operative findings:: None Operative note:: Informed consent was obtained and the risk and benefits of the procedure was explained to the patient. Patient was taken to the operating room placed prone on the procedure table. Patient was prepped and draped in sterile fashion. A lateral view of the sacrum with C-arm was taken to make sure it was out of anteversion. We then did an oblique view of the left sacroiliac joint. We lined up the anterior and posterior sides of the joint to achieve a [place] . A line was drawn on the skin with the SI joint. The superior and inferior aspect of the joint were anesthetized using lidocaine. The superior and inferior aspect of the joint were marked off. 1 cm medial and 1 cm superiorly into the upper quadrant and 1 cm medial and 1 cm distal a 1 1/2 cm longitudinal incisions were made through the skin and subcutaneous tissues. Guidepins were then placed superior and inferior at a 90 degree angle to each other under C-arm guidance through the incision was made into the superior third and inferior third of the SI joint. Lateral C-arm view was then taken to check the depth of the pins into the SI joint. On the lateral view the joint finder was placed over the guidepin into the appropriate position. The working cannula retractor was then placed over the joint finder into the SI joint into the appropriate position and depth. The joint finder and guidepin were removed. The SI joint was drilled to remove cartilage and to get into the subchondral bone of the sacrum and ilium. The broach was then used to prepare a triangular groove into both the sacrum and ilium for insertion of stabilization grafts. A collagen spine was then placed into the prepared space and the stabilization graft was placed. This was done both superiorly inferiorly into the SI joint. The cannulated retractor was removed. The incisions were then closed with 2-0 Vicryl followed by 4-0 nylon. Dressings were placed and the patient was taken recovery in stable condition. Patient tolerated the procedure well with no complications. We will give the patient [place] 5 mg 1 tablet every 4 to 6 hours for postoperative pain. I will give her 20 tablets. We will follow-up with her and 1 week for wound check and will follow up in 2 weeks for suture removal. If she has any problems or questions she is to call us back in the pain clinic. We will also put her on postop antibiotics. Condition: stable Disposition: PACU Complications:: None
--- NOTE | 2020-02-26 12:50 | PC.NURSE ---
Morphine 4mg IV given per MD order. pt tolerated well.
--- NOTE | 2020-02-26 12:56 | P.PN_ITS ---
[facility] Anesthesia Record Part II Discharge Time: 12:20 Destination: Surgical Day Care (OP Surgery) PACU nurse assessment reviewed?: Yes Patient Condition:: Good Anesthesia Complications:: None Swallowing reflex intact?: Yes Cyanosis?: No Blood Pressure: 99/69 Pulse Rate: 86 Temperature: 98.5 F Mental Status: Alert & Oriented Pain level:: 0 Nausea and/or vomitting:: None Intake, IV Amount: 0
--- NOTE | 2020-02-26 12:58 | SUR.PHASEII ---
Pt says starting to feel some relief from Morphine. Pain rating 6. Pt conversing with SO at bedside, smiling and laughing at times. moving all exptremeties. No c/o numbness or tingling in lower extremeties.
== END 2020-02-26 13:24 | disposition home or self-care (01) ==
LOC: OR 08:25
PROVIDERS: PCP Physician Assistant; Visit Provider Anesthesiology
PROC: (CPT 27279; principal; 2020-02-26 09:30)
DX: M46.1 Sacroiliitis, not elsewhere classified (principal); I10 Essential (primary) hypertension; E78.5 Hyperlipidemia, unspecified; F41.9 Anxiety disorder, unspecified; D64.9 Anemia, unspecified; M19.90 Unspecified osteoarthritis, unspecified site; E03.9 Hypothyroidism, unspecified
CPT/HCPCS: 27279; 84703; 96374; C1713; J2405; J2710; J3370

== ENCOUNTER → 2020-03-03 08:33 | Outpatient (POV) | payer OTHER, SELFPAY ==
[2020-03-03 08:47] VITALS: BP 128/74; PULSE 68; RESP 18; TEMP 36.4; O2SAT 98; BMI 48.8
--- NOTE | 2020-03-03 08:56 | HMH.PAINSOAP ---
[facility] Pain Management SOAP Note Subjective:: Patient is a 39-year-old white female who presents today for follow-up after a left SI stabilization procedure. She does have chronic sacroiliitis on the left side. She got 80 to 90% relief with her injections before the procedure. She did try conservative therapies of physical therapy, home stretching, and anti-inflammatories. Patient is approximately 1 week status post procedure. She is doing well overall. Patient says that she only has incisional pain at this time. She is using her compounding cream intermittently. She rates her pain a 2 out of 10 today. Review of Systems General: No recent weight changes, no fever, no sleep disturbances Respiratory: No cough, no shortness of air, no recurring pulmonary infections Cardiovascular/peripheral vascular: No chest pain, no palpitations, no edema, no shortness of breath Gastrointestinal: No new onset incontinence, normal bowel movements reported Genitourinary: No new onset incontinence Musculoskeletal: Intermittent incisional pain Psychiatric: Normal mood/affect Neurological: [Denies weakness in extremities], [denies balance issues] Objective:: Physical exam General: Alert and oriented x3, no acute distress, pleasant and cooperative, [on room air] Lungs: Respirations even and unlabored, symmetrical chest expansion Eyes: PERRL Musculoskeletal: Flexion and extension of lumbar spine somewhat guarded secondary to pain, deep tendon reflexes normal, strength in upper and lower extremities [5/5], [abnormal gait noted] positive compression test, distraction test, positive Maldonado's test Neurological: Speech clear, textile stylist equal, no gross sensory deficit Assessment:: Sacroiliitis left Plan:: Overall, the patient is doing well today. We will plan to follow-up with her in 2 weeks for suture removal. Her incision is well approximated, no redness, no drainage, no edema is noted to the site. We will plan to see her back in 2 weeks. She has been instructed to contact the clinic if she has any concerns for next morning. The patient and I specifically discussed risk factors for COVID19. These risks include, but are not limited to age greater than 60, heart or lung disease, diabetes, immunosuppression, and travel. We also discussed NSAIDs may worsen COVID19 infection or symptoms. Patient should not use NSAIDs to treat COVID19 signs or symptoms. Patient was also informed that any type of corticosteroid of any form (oral or injection) will decrease the patient's immune system response and may increase the likelihood of COVID19 infection and symptoms[address] Dr. José has reviewed this note and agrees with this plan of care. This note was dictated using voice recognition software and make contain errors or omissions [facility] History I have reviewed the patient's past medical history: Yes Medical History: Reports:: Anxiety, Hyperlipidemia, Hypertension Denies:: Cancer, Diabetes Mellitus Type 1, Diabetes Mellitus Type 2, Internal Pacemaker, MRSA, Seizures *Have you ever received a pneumonia vaccine?: Yes *Have you received a flu vaccine this season?: Yes Other Medical History: Reports: Anemia, Arthritis, Hypothyroidism. Denies: Blood Transfusion Reaction Laterality Cases: Bilateral: Tonsillectomy Other Surgeries: Yes: Dilation and Curettage, Tubal Ligation. No: Pacemaker Amputation: No Fractures: No - *Social History Smoking Status: Never smoker Tobacco Type: cigarettes # Packs/Day (cigarettes): 1 Alcohol Intake: never Alcohol Intake Frequency:: holidays/special occasions only Substance Use Type: denies use *Occupational Status:: other Housing: house Household Members: spouse, children *Travel in the last 8 weeks: None - Psychiatric History Pschychiatric History:: Reports:: Anxiety Family Hx:: No significant family history
== END ==
PROVIDERS: PCP Physician Assistant; Visit Provider Clinical Nurse Specialist Family Health
DX: M46.1 Sacroiliitis, not elsewhere classified (principal); Z08 Encounter for follow-up examination after completed treatment for malignant neoplasm
CPT/HCPCS: 99212

== ENCOUNTER → 2020-03-28 11:26 | Outpatient (POV) | payer OTHER, SELFPAY ==
[2020-03-28 12:09] VITALS: BP 142/78; PULSE 74; RESP 18; O2SAT 98; BMI 48.8
--- NOTE | 2020-03-28 12:19 | HMH.PAINSOAP ---
[facility] Pain Management SOAP Note Subjective:: She is a pleasant 39-year-old white female who presents today for follow-up after left SI joint stabilization. She is gotten 80% relief of her symptomology rating her pain today a 2 out of 10. Overall patient is doing very well. Patient is completely healed ROS General: no recent weight change, no fever, no sleep disturbances Respiratory: no cough, no shortness of air, no recurring pulmonary infections Cardiovascular/Peripheral Vascular: No chest pain, No palpitations, no edema, no shortness of breath. Gastrointestinal: no new onset incontinence, normal bowel movements reported Genitourinary: no new onset incontinence Musculoskeletal: SI joint pain at times Psychiatric: normal mood/ affect Neurological: [denies new onset weakness in extremities], [denies new onset balance issues] Objective:: Physical Exam General: Alert and oriented x3, no acute distress, pleasant and cooperative, [on room air] Lungs: Resps E/U, Symmetrical chest expansion, Eyes: PERRL Musculoskeletal: Flexion and extension of lumbar spine somewhat guarded secondary to pain, deep tendon reflexes normal, strength in upper and lower extremities [5/5], antalgic gait noted Neurological: speech clear, black pickler equal, no gross sensory deficits Assessment:: Sacroiliitis Plan:: Overall patient doing well at this time. We will follow up with. 2 months. Patient's been instructed to call the office if she has any issues prior to her next appointment. Dr. José has reviewed this note and agrees with this plan of care. This note was dictated using voice recognition software and may contain errors or omissions [facility] History I have reviewed the patient's past medical history: Yes Medical History: Reports:: Anxiety, Hyperlipidemia, Hypertension Denies:: Cancer, Diabetes Mellitus Type 1, Diabetes Mellitus Type 2, Internal Pacemaker, MRSA, Seizures *Have you ever received a pneumonia vaccine?: Yes *Have you received a flu vaccine this season?: Yes Other Medical History: Reports: Anemia, Arthritis, Hypothyroidism. Denies: Blood Transfusion Reaction Laterality Cases: Bilateral: Tonsillectomy Other Surgeries: Yes: Dilation and Curettage, Tubal Ligation. No: Pacemaker Amputation: No Fractures: No - *Social History Smoking Status: Never smoker Tobacco Type: cigarettes # Packs/Day (cigarettes): 1 Alcohol Intake: never Alcohol Intake Frequency:: holidays/special occasions only Substance Use Type: denies use *Occupational Status:: other Housing: house Household Members: spouse, children *Travel in the last 8 weeks: None - Psychiatric History Pschychiatric History:: Reports:: Anxiety Family Hx:: No significant family history
== END ==
PROVIDERS: Visit Provider Clinical Nurse Specialist Family Health
DX: M46.1 Sacroiliitis, not elsewhere classified (principal)
CPT/HCPCS: 99212

== ENCOUNTER → 2020-05-26 11:06 | Outpatient (POV) | payer OTHER, SELFPAY ==
[2020-05-26 12:29] VITALS: BP 138/85; PULSE 74; RESP 18; O2SAT 99; BMI 50.8
--- NOTE | 2020-05-26 12:51 | HMH.PAINSOAP ---
[facility] Pain Management SOAP Note Subjective:: Patient is a 40-year-old white female who presents today for follow-up after a left SI stabilization procedure. She is being treated for chronic sacroiliitis. Patient rates her pain a 4 out of 10 today. She is having some muscle spasms in the area. She is previously taken Flexeril for up to 2 to 3 years. She says she takes it 2 times a day, however, it is scheduled for 3 times a day. She does not feel this is giving her much relief. She and I did discuss trying ties Pallavi Pearce for the next few days to see if this is helpful. She is in agreement. Overall, however, she is improving with her pain to her SI joint. Review of Systems General: No recent weight changes, no fever, no sleep disturbances Respiratory: No cough, no shortness of air, no recurring pulmonary infections Cardiovascular/peripheral vascular: No chest pain, no palpitations, no edema, no shortness of breath Gastrointestinal: No new onset incontinence, normal bowel movements reported Genitourinary: No new onset incontinence Musculoskeletal: Muscle spasms left low back area Psychiatric: Normal mood/affect Neurological: [Denies weakness in extremities], [denies balance issues] Objective:: Physical exam General: Alert and oriented x3, no acute distress, pleasant and cooperative, [on room air] Lungs: Respirations even and unlabored, symmetrical chest expansion Eyes: PERRL Musculoskeletal: Flexion and extension of lumbar spine somewhat guarded secondary to pain, deep tendon reflexes normal, strength in upper and lower extremities [5/5], [abnormal gait noted] Neurological: Speech clear, wood experimental mechanic equal, no gross sensory deficit Assessment:: Sacroiliitis left side Plan:: We will change the patient from Flexeril to tizanidine. She has been instructed to stop her Flexeril and start has a Nubain 10 mg 1 tablet p.o. twice daily. We will see her back in the clinic in 2 weeks to reevaluate her symptoms. Risks and benefits of the medication have been explained in detail to the patient. The patient has been advised to consult with his/her primary care provider and pharmacist regarding drug-drug interaction of medications currently prescribed. Dr. José has reviewed this note and agrees with this plan of care. This note was dictated using voice recognition software and make contain errors or omissions. [facility] History I have reviewed the patient's past medical history: Yes Medical History: Reports:: Anxiety, Hyperlipidemia, Hypertension Denies:: Cancer, Diabetes Mellitus Type 1, Diabetes Mellitus Type 2, Internal Pacemaker, MRSA, Seizures *Have you ever received a pneumonia vaccine?: Yes *Have you received a flu vaccine this season?: Yes Other Medical History: Reports: Anemia, Arthritis, Hypothyroidism. Denies: Blood Transfusion Reaction Laterality Cases: Bilateral: Tonsillectomy Other Surgeries: Yes: Dilation and Curettage, Tubal Ligation. No: Pacemaker Amputation: No Fractures: No - *Social History Smoking Status: Never smoker Tobacco Type: cigarettes # Packs/Day (cigarettes): 1 Alcohol Intake: never Alcohol Intake Frequency:: holidays/special occasions only Substance Use Type: denies use *Occupational Status:: other Housing: house Household Members: spouse, children *Travel in the last 8 weeks: None - Psychiatric History Pschychiatric History:: Reports:: Anxiety Family Hx:: No significant family history
== END ==
PROVIDERS: PCP Physician Assistant; Visit Provider Clinical Nurse Specialist Family Health
DX: M46.1 Sacroiliitis, not elsewhere classified (principal)
CPT/HCPCS: 99212; G0463

== ENCOUNTER → 2020-06-21 17:44 | Outpatient (CLI) | payer OTHER, SELFPAY | PROVIDERS: Visit Provider Physician Assistant | DX: R30.9 Painful micturition, unspecified (principal) | CPT/HCPCS: 87086 ==

== ENCOUNTER → 2020-07-11 14:12 | Outpatient (CLI) | payer OTHER, SELFPAY | PROVIDERS: PCP Physician Assistant; Visit Provider Internal Medicine Cardiovascular Disease | DX: R07.89 Other chest pain (principal); R06.00 Dyspnea, unspecified; R06.83 Snoring; R40.0 Somnolence | CPT/HCPCS: 95806 ==

== ENCOUNTER → 2020-08-05 06:31 | Outpatient (CLI) | payer SELFPAY ==
--- NOTE | 2020-08-05 | CA_ITS ---
APPROVED REPORT Exam: Exercise Treadmill Technologist: rod deng, Ht: 5 ft 0 in Wt: 256 lbs BSA: 2.07 m2 HR: 76 bpm BP: 115/64 mmHg Rhythm: NSR, inf Q wave Indications: CP, SOB Medical History Medications: Omeprazole,,,,, Levothyroxine,,,,, Metoprolol,,,,, Gabapentin,,,,, Losartan,,,,, HCTZ,,,,, Diclofenac,,,,, Vitamin D,,,,, AtorvastaIN,,,,, BusIPIRONE,,,,, CyclobenzapINE,,,,, VenlaDFAXINE,,,,, Allergies: Lisinopril Cardiac Risk Factors: HTN, Hyperlipidemia, FHX of CAD Stress Test Details Test: Phan HR Resting HR: 83 bpm Max Heart Rate (APMHR): 180.919293 bpm Max HR Achieved: 166 bpm Target HR (85% APMHR): 153.832674 bpm % of APMHR: 92.22 Recovery HR: 112 bpm BP Resting BP: 115/64 mmHg Max BP: 132/84 mmHg Recovery BP: 115.0/67.0 mmHg ECG Resting ECG: NSR, Inf Q wave Clinical Reason for Termination: Dyspnea Exercise duration: 07:31 min Highest Stage Achieved: Stage 2: 2.5 mph at 12% grade. Exercise capacity: 10.1 METs Stress ECG Conclusion Patient had some chest pain and SOA. One PVc. Less than 1.5mm ST Segment changes. Negative EKG. Positive symptoms. See Nuclear report. Test Summary REST . . . . . . . Standing REST . . . . . . . Sitting REST 13:54 0.0 1.2 83 . 115/ 64 . . Stage 1 01:00 10.0 1.7 104 . . . . Stage 1 02:00 10.0 1.7 115 . . . . Stage 1 03:00 10.0 1.7 122 . 130/ 78 . . Stage 2 01:00 12.0 2.5 131 . . . . Stage 2 02:00 12.0 2.5 138 . . . . Stage 2 03:00 12.0 2.5 144 . . . . Stage 3 . . . . . . . Cardiolite injected Stage 3 01:00 14.0 3.4 157 . 132/ 84 . . Stage 3 01:31 14.0 3.4 164 . 132/ 84 . Stop exercise at 07:31 RECOVERY 01:00 0.0 0.0 155 . . . . RECOVERY 02:00 0.0 0.0 129 . . . . RECOVERY 03:00 0.0 0.0 115 . . . . RECOVERY 04:00 0.0 0.0 107 . 115/ 67 . . RECOVERY 05:00 0.0 0.0 105 . 115/ 67 . . RECOVERY 06:00 0.0 0.0 96 . 113/ 60 . . RECOVERY 07:00 0.0 0.0 97 . 113/ 60 . . RECOVERY 08:00 0.0 0.0 97 . 113/ 60 . . RECOVERY 08:28 0.0 0.0 97 . 112/ 72 . . Electronically signed by : Marciano Quiroga, 08/05/2020 13:46:30
--- NOTE | 2020-08-05 06:37 | CT_ITS ---
PROCEDURE: CT HEART W CALCIUM SCORE CLINICAL HISTORY: chest pain COMPARISON: No exams were available for comparison TECHNIQUE: Axial images obtained with sagittal and coronal reformats. All CT scans at the facility use one or more dose reduction, viz: automated exposure control, ma/kV adjustment per patient size (including targeted exams where dose is matched to indication, i.e. head), or iterative reconstruction technique. FINDINGS: Coronary artery calcium score is 0. No identifiable atherosclerotic plaque with very low cardiovascular disease risk. No pertinent incidental findings apparent IMPRESSION: No identifiable calcific atherosclerotic plaque with very low cardiovascular disease risk Dictated by: Rajat Martinez MD 08/05/2020 16:43 Rajat Martinez MD in [place] 08/05/2020 16:43
== END ==
PROVIDERS: PCP Physician Assistant; Visit Provider Internal Medicine Cardiovascular Disease
DX: R07.89 Other chest pain (principal); R06.00 Dyspnea, unspecified; E66.01 Morbid (severe) obesity due to excess calories; E78.5 Hyperlipidemia, unspecified; I10 Essential (primary) hypertension; R06.83 Snoring; R40.0 Somnolence; R60.9 Edema, unspecified; Z82.49 Family history of ischemic heart disease and other diseases of the circulatory system; Z13.6 Encounter for screening for cardiovascular disorders
CPT/HCPCS: 75571; 93017

== ENCOUNTER → 2020-08-05 06:45 | Outpatient (CLI) | payer OTHER, SELFPAY ==
--- NOTE | 2020-08-05 06:52 | NM_ITS ---
APPROVED REPORT Exam: Nuclear Stress Test Indication: chest pain..short of breath..palpitation..fatigue Patient Location: Outpatient Stress Tech: Nasra Lua [place] Tech:JAIRON Dooley RT(R)(N) Ht: 5 ft 0 in Wt: 256 lbs Bra Size: 44dd HR: 76 bpm BP: 115/64 mmHg BSA: 2.07 m2 History: chest pain..short of breath..palpitation..fatigue Procedure: Patient exercised on Phan protocol 7.30 minutes and sec, resting heart rate 76 bpm, resting blood pressure 115/64 mmHg, with exercise maximum heart rate achived was 165 bpm which is 108 % of the maximum predicted heart rate and blood pressure was 132/84 mmHg. Test was stopped due to Chest pain and shortness of breath. Patient has Good exercise capacity, achieved 10.1 METs of workload on treadmill, the blood pressure response to exercise was Adequate. Electrocardiogram Resting electrocardiogram showed sinus rhythm, with exercise there is less than 1.[address] segment depression noted from the baseline EKG. The EKG portion of the exercise Myoview is negative for ischemia. Cardiac Stress and Resting SPECT Images: Cardiac Stress and Resting SPECT images were obtained using technetium 99m Myoview 29.0 mCi stress and 10.05 mCi at rest. Gated SPECT for analysis of segmental wall motion and calculation of the ejection fraction also done. Prone images were also obtained. Cardiac stress and resting SPECT images show uniform myocardial activity without segmental perfusion abnormality, computer derived ejection fraction is 65% with no regional wall motion abnormality, right ventricle is normal size and contractility. Conclusion: 1. The EKG portion of the exercise Myoview is negative for ischemia, patient has good exercise capacity achieved 10.1 METs of workload on treadmill, the blood pressure response to exercise was adequate, patient complained of some chest pain and shortness of breath with exercise relieved with rest, there is no EKG changes to suggest ischemia. 2. No scintigraphic evidence of reversible ischemia seen, computer derived ejection fraction 65% with no regional wall motion abnormality, right ventricle is normal size and contractility. Electronically signed by : Marciano Quiroga, 08/05/2020 13:53:44
--- NOTE | 2020-08-05 07:31 | CA_ITS ---
APPROVED REPORT EXAM: Comprehensive 2D, Doppler, and color-flow Echocardiogram Public Accountant: Blanca Kaplan RT(R) Ht: 5 ft 0 in Wt: 264lbs BSA: 2.10 BP: 143/91 mmHg Indications: SOB, CP, CP, edema, obesity, hyperlipidemia Echo Enhancing Agent Indication: Endocardial border delineation Agent(s) / Amount(s) Used: Definity 2 cc 2D Dimensions LVOT 2.25 cm (M/F) 1.5-2.5 M-Mode Dimensions RVDd 3.36 cm (0.9-2.6) LA Diam 3.87 cm (1.9-4.0) LVDd 4.72 cm (3.5-5.7) Ao Diam 3.19 cm (2.0-3.7) LVDs 3.43 cm (3.5-5.7) IVSd 0.68 cm (0.6-1.1) PWd 0.68 cm (0.6-1.1) EF (Teich) 53.10% FS 27.30% EDV (Teich) 103.40 mL ESV (Teich) 48.50 mL LV Diastology E Decel Time 220.00 (160-240 msec) E/A Ratio 1.0 MED E' 9.10 (< 7 cm/sec) E'/MED E' Ratio 7.54 (>14) LAT E' 10.40 (<10 cm/sec) E/LAT E' Ratio 6.60 (>14) Mitral Valve MV E Max Aleksandar. 69.00 (40-130 cm/s) MV A Velocity 68.00 (40-130 cm/s) E/A Ratio 1.01 MV Decel. Time 220.00 (160-240 ms) MV PHT 64.00 ms Left Ventricle Left atrium is mildly enlarged, left ventricle is normal size, mild qualitative concentric left ventricular hypertrophy, visually estimated ejection fraction 55% with no regional wall motion abnormality, Optison was utilized to delineate the endocardial surfaces. Right Ventricle Right atrium and right ventricle are mildly enlarged with normal contractility. Aortic Valve Aortic valve is minimally thickened and fibrosed, there is no aortic stenosis or aortic insufficiency. Mitral Valve Mitral valve is grossly normal, there is trace mitral regurgitation. Tricuspid Valve Tricuspid grossly normal, there is trace tricuspid regurgitation, tricuspid regurgitation jet velocity is inadequate for calculation of the right ventricular systolic pressure. Pulmonic Valve Pulmonic valve is poorly visualized. Great Vessels Aortic root is normal size. Pericardium No significant pericardial effusion noted. Conclusion 1. Mild biatrial normal, normal left ventricular size, visually estimated ejection fraction 55% with no regional wall motion abnormality diastolic parameters are inconclusive. Definity contrast was utilized to delineate the endocardial surfaces, there is no left ventricular thrombus seen. 2. Mildly enlarged right ventricle with normal contractility. 3. Trace mitral and tricuspid regurgitation. 4. No significant pericardial effusion noted. Electronically signed by : Marciano Quiroga, 08/05/2020 14:10:02
[2020-08-05 11:58] LABS: Chloride 100 mmol/L (98-107); Sodium 136 mmol/L (136-145)
[2020-08-05 11:59] LABS: Potassium 4.6 mmoL/L (3.5-5.1)
[2020-08-05 12:01] LABS: Blood Urea Nitrogen 22 mg/dl (7-17); Estimated Glomerular Filt Rate 93 ml/min (>60); GFR (African American) 112 ML/MIN (>60)
[2020-08-05 12:02] LABS: Anion Gap 14.6 mEq/L (5-15); Calcium 9.7 mg/dl (8.4-10.2); Carbon Dioxide 26 mmol/L (22.0-30.0); Glucose 98 mg/dl (74-100)
[2020-08-05 12:11] LABS: NT Pro Brain Natriuretic Pep. 19.3 pg/mL (0-125)
== END ==
PROVIDERS: PCP Physician Assistant; Visit Provider Internal Medicine Cardiovascular Disease
DX: R07.89 Other chest pain (principal); R06.00 Dyspnea, unspecified; E66.01 Morbid (severe) obesity due to excess calories; E78.5 Hyperlipidemia, unspecified; R60.9 Edema, unspecified; I10 Essential (primary) hypertension; R06.83 Snoring; R40.0 Somnolence; Z82.49 Family history of ischemic heart disease and other diseases of the circulatory system
CPT/HCPCS: 78452; 80048; 83880; 93017; 93306; A9502; Q9957

== ENCOUNTER → 2020-09-15 14:15 | Outpatient (POV) | payer OTHER, SELFPAY ==
[2020-09-15 14:33] VITALS: BP 119/69; PULSE 81; RESP 20; O2SAT 95; BMI 47.8
--- NOTE | 2020-09-16 07:36 | HMH.PAINSOAP ---
[facility] Pain Management SOAP Note Subjective:: Patient is a 40-year-old white female who presents today for follow-up. Patient has recently undergone a left SI stabilization procedure. She did very well with the procedure. Her pain is a 4 out of 10 today. At her last visit she was having some low back pain that was worse with extension and twisting at her waist. She says that she has undergone RFA in the past which is giving her significant relief up to 80% for approximately 6 months. Patient's pain is slowly returning to her low back area. She does have a positive Kemps test today. At her last visit, she was changed from Flexeril to tizanidine, however, she did not feel that tizanidine gave her any relief. As result, she is started using Flexeril again. Patient has had 3 levels with an RFA in the past. She understands that pending approval, we will proceed with RFA at L3-L4 L4-L5 L5-S1. If the patient is not approved for 3 levels, we will proceed with L3-L4 L4-L5. She is in agreement. She is not on anticoagulation therapy. She has tried and failed conservative therapies of physical therapy for greater than 6 weeks along with a continued home stretching program. She is also tried and failed anti-inflammatories as well as ice and heat therapies. Review of Systems General: No recent weight changes, no fever, no sleep disturbances Respiratory: No cough, no shortness of air, no recurring pulmonary infections Cardiovascular/peripheral vascular: No chest pain, no palpitations, no edema, no shortness of breath Gastrointestinal: No new onset incontinence, normal bowel movements reported Genitourinary: No new onset incontinence Musculoskeletal: Low back pain worse with extension and twisting at waist Psychiatric: Normal mood/affect Neurological: [Denies weakness in extremities], [denies balance issues] Objective:: Physical exam General: Alert and oriented x3, no acute distress, pleasant and cooperative, [on room air] Lungs: Respirations even and unlabored, symmetrical chest expansion Eyes: PERRL Musculoskeletal: Flexion and extension of [] lumbar spine somewhat guarded secondary to pain, deep tendon reflexes normal, strength in upper and lower extremities [5/5], [abnormal gait noted], positive Kemps test Neurological: Speech clear, lmft equal, no gross sensory deficit Assessment:: 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 She has undergone 3 levels in the past. If she is not approved for 3 levels, we will proceed with L3-L4 L4-L5 levels. She is not on anticoagulation therapy. She is continue with home stretching and anti-inflammatories. She has tried and failed physical therapy for greater than 6 weeks in the past and ice and heat therapies. We will see her back after her RFA to reevaluate her symptoms. Patient has gotten up to 6 months of relief at about 80% relief in the past. She does have a positive Kemps test today. Risks and benefits of the procedure have been explained to the patient. Patient would like to proceed with the procedure. Patient has been instructed to contact the clinic with any concerns before the next appointment. Dr. José has reviewed this note and agrees with this plan of care. This note was dictated using voice recognition software and make contain errors or omissions. [facility] History I have reviewed the patient's past medical history: Yes Medical History: Reports:: Anxiety, Hyperlipidemia, Hypertension Denies:: Cancer, Diabetes Mellitus Type 1, Diabetes Mellitus Type 2, Internal Pacemaker, MRSA, Seizures *Have you ever received a pneumonia vaccine?: No *Have you received a flu vaccine this season?: No Other Medical History: Reports: Anemia, Arthritis, Blood Transfusion Reaction, Hypothyroidism Laterality Cases: Bilateral: Tonsillectomy Other Surgeries: Yes: Dilation and Curettage, Tubal
== END ==
PROVIDERS: Visit Provider Clinical Nurse Specialist Family Health
DX: M51.36 Other intervertebral disc degeneration, lumbar region (principal); M47.816 Spondylosis without myelopathy or radiculopathy, lumbar region; M54.06 Panniculitis affecting regions of neck and back, lumbar region
CPT/HCPCS: 99212; G0463

== ENCOUNTER 2020-09-23 13:30 | Day surgery (SDC) | payer OTHER, SELFPAY ==
[2020-09-23 14:11] VITALS: BP 122/71; PULSE 82; RESP 18; TEMP 37.1; O2SAT 98; BMI 45.7
[2020-09-23 16:16] VITALS: BP 126/64; PULSE 75; RESP 18; O2SAT 98
[2020-09-23 16:18] VITALS: BP 107/69; PULSE 78; RESP 18; O2SAT 99
--- NOTE | 2020-09-23 16:33 | P.PCN_ITS ---
- Procedure Date: 09/23/20 Time: 16:33 Anesthesiologist:: Cynthia Wong MD Complications:: None Pre-procedure Diagnosis:: Degenerative disc disease of the lumbar spine, lumbar facet arthropathy, lumbar spondylosis Post-procedure Diagnosis:: Same Indications for Procedure:: She is a very pleasant 40-year-old white female who presents today with chronic low back pain related to the above diagnosis. She has trialed and failed conservative treatment including oral pain medication and home stretching program. She has previously undergone previous lumbar RFA injections in the past with significant pain relief, greater than 80% for approximately 6 months. Of note she has also undergone left-sided SI joint stabilization procedure and notes that her pain is significantly improved with this procedure. The plan for today is for her to undergo bilateral therapeutic L4-L5 and L5-S1 lumbar RFA. Procedure Details:: Lumbar RFA informed consent was obtained and the risk and benefits of the procedure was explained to the patient. Patient was placed prone on the procedure table. The patient was prepped and draped in sterile fashion. C-arm fluoroscopy was used to view the lumbar spine. The skin and subcutaneous tissues were anesthetized using lidocaine. I placed 20-gauge RF needles into the facet joints of [L4 and L5] levels on the right side. We underwent sensory stimulation. There is good sensory stimulation at 0.8 V. We underwent motor stimulation. There is no motor stimulation at 2 V. We then anesthetized these levels with 0.25% bupivaca ine and Depo-Medrol. I used a total of 40 mg Depo-Medrol for both levels. I then burned both levels of L4 and L5 facet joint/medial branches on the right side for 60 seconds at 80?C. Patient tolerated the procedure well with no complication. Plan and Disposition:: Follow-up with this patient in 2 weeks. Will reevaluate pain symptoms at that time.
[2020-09-23 16:45] VITALS: BP 110/68; PULSE 72; RESP 20; O2SAT 98
== END 2020-09-23 16:45 | disposition home or self-care (01) ==
LOC: SC.PAINP 13:31
PROVIDERS: PCP Physician Assistant; Visit Provider Anesthesiology Pain Medicine
DX: M51.36 Other intervertebral disc degeneration, lumbar region (principal); M54.06 Panniculitis affecting regions of neck and back, lumbar region; M47.816 Spondylosis without myelopathy or radiculopathy, lumbar region; E78.5 Hyperlipidemia, unspecified; I10 Essential (primary) hypertension; M19.90 Unspecified osteoarthritis, unspecified site; E03.9 Hypothyroidism, unspecified; F41.9 Anxiety disorder, unspecified; D64.9 Anemia, unspecified; Z87.891 Personal history of nicotine dependence
CPT/HCPCS: 64635; 64636; J1030

== ENCOUNTER → 2020-10-17 13:17 | Outpatient (POV) | payer OTHER, SELFPAY ==
[2020-10-17 13:36] VITALS: BP 141/76; PULSE 103; RESP 18; O2SAT 95; BMI 48.8
--- NOTE | 2020-10-17 14:42 | HMH.PAINSOAP ---
[facility] Pain Management SOAP Note Subjective:: Patient is a pleasant 40-year-old white female who presents today for follow-up after RFA at L4-L5 L5-S1 bilaterally. She is being treated for degenerative disc disease lumbar spine with lumbar facet arthropathy and lumbar spondylosis. Patient says that her pain is a 2 out of 10 to her low back area. She says that she got excellent relief with the RFA. She is able to bend forward and extend at the waist without pain. She is complaining, however, pain to her right SI joint today. She does have a history of left sacroiliitis with a left SI stabilization procedure in the past. She says that she feels the same type of pain over to the right side now. She is having pain with standing and walking which improves with sitting. The pain radiates to her right hip and stops at her right knee. Her pain today area is a 5 out of 10. She is tender to palpation to the area as well. She continues with home stretching. She has also tried anti-inflammatories. She has had physical therapy for greater than 6 weeks in the past with no significant relief. Review of Systems General: No recent weight changes, no fever, no sleep disturbances Respiratory: No cough, no shortness of air, no recurring pulmonary infections Cardiovascular/peripheral vascular: No chest pain, no palpitations, no edema, no shortness of breath Gastrointestinal: No new onset incontinence, normal bowel movements reported Genitourinary: No new onset incontinence Musculoskeletal: Right low back pain with radiation into right buttock, right hip, and right leg stopping at knee Psychiatric: Normal mood/affect Neurological: [Denies weakness in extremities], [denies balance issues] Objective:: Physical exam General: Alert and oriented x3, no acute distress, pleasant and cooperative, [on room air] Lungs: Respirations even and unlabored, symmetrical chest expansion Eyes: PERRL Musculoskeletal: Flexion and extension of lumbar spine somewhat guarded secondary to pain, deep tendon reflexes normal, strength in upper and lower extremities [5/5], [abnormal gait noted], positive Maldonado's test, positive compression test, positive distraction test Neurological: Speech clear, industrial 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 She is now having the same type of pain on the right side. We will schedule her for right SI joint injection. She does have a positive Maldonado's, compression, distraction test. She has tenderness noted over right SI joint as well. We will follow-up with the patient after her injection for reevaluation of symptoms. She will continue with home stretching and anti-inflammatories. Risks and benefits of the procedure have been explained to the patient. Patient would like to proceed with the procedure. Possible side effects of corticosteroids have been discussed with the patient. Patient has been instructed to contact the clinic with any concerns before the next appointment. Dr. José has reviewed this note and agrees with this plan of care. This note was dictated using voice recognition software and make contain errors or omissions. [facility] History I have reviewed the patient's past medical history: Yes Medical History: Reports:: Anxiety, Hyperlipidemia, Hypertension Denies:: Cancer, Diabetes Mellitus Type 1, Diabetes Mellitus Type 2, Internal Pacemaker, MRSA, Seizures *Have you ever received a pneumonia vaccine?: No *Have you received a flu vaccine this season?: No Other Medical History: Reports: Anemia, Arthritis, Hypothyroidism. Denies: Blood Transfusion Reaction Laterality Cases: Bilateral: Tonsillectomy Other Surgeries: Yes: Dilation and Curettage, Tubal Ligation. No: Pacemaker Amputation: No Fractures: No - *Social
== END ==
PROVIDERS: PCP Physician Assistant; Visit Provider Clinical Nurse Specialist Family Health
DX: M46.1 Sacroiliitis, not elsewhere classified (principal); M51.36 Other intervertebral disc degeneration, lumbar region; M47.816 Spondylosis without myelopathy or radiculopathy, lumbar region; M54.06 Panniculitis affecting regions of neck and back, lumbar region
CPT/HCPCS: 99212; G0463

== ENCOUNTER 2020-10-28 10:35 | Day surgery (SDC) | payer OTHER, SELFPAY ==
[2020-10-28 10:39] VITALS: BP 117/75; PULSE 76; RESP 18; TEMP 36.4; O2SAT 98; BMI 48.8
[2020-10-28 10:54] VITALS: BP 130/76; PULSE 73; RESP 18; O2SAT 98
--- NOTE | 2020-10-28 10:59 | P.PCN_ITS ---
- Procedure Date: 10/28/20 Time: 10:59 Anesthesiologist:: Cynthia Wong MD Complications:: None Pre-procedure Diagnosis:: Right-sided sacroiliitis, right sided chronic low back pain, right-sided chronic hip pain Post-procedure Diagnosis:: same Indications for Procedure:: Patient is a very pleasant 40-year-old white female who presents today with chronic right-sided low back pain and chronic right-sided hip pain related to the above diagnosis. She states that the pain is in her right hip and radiates down to the level of her right knee. She states the pain is worse with prolonged standing and walking and improves with sitting. She has tried and failed conservative treatment including oral pain medications and physical therapy for greater than 6 weeks. Of note, she has previously undergone a lumbar RFA at L4- L5 and L5-S1 bilaterally for degenerative disc disease of the lumbar spine with lumbar facet arthropathy and lumbar spondylosis. She notes significant pain relief after undergoing these injections and states that she is now able to bend forward and extend her waist without pain. The plan for today is for the patient to undergo right-sided SI joint injections under fluoroscopy #1 Procedure Details:: My right SI joint injection under fluoroscopy Informed consent was obtained and the risks and benefits of the procedure was going to the patient. Patient was taken to the procedure room. Patient was placed prone on the procedure table. The right hip was prepped using ChloraPrep. The skin and subcutaneous tissues were anesthetized using lidocaine. I placed a 22-gauge spinal needle into the inferior aspect of the right SI joint. Needle placement was confirmed with dye. After this we injected 5 mL bupivacaine 0.25% and Depo-Medrol 40 mg into the right SI joint. The patient tolerated the procedure well with no complication. Plan and Disposition:: Follow-up with this patient in 2 weeks. Will reevaluate pain symptoms at that time.
[2020-10-28 11:04] VITALS: BP 134/74; PULSE 68; RESP 18; O2SAT 99
[2020-10-28 11:15] VITALS: BP 101/63; PULSE 76; RESP 20; O2SAT 98
== END 2020-10-28 11:15 | disposition home or self-care (01) ==
LOC: SC.PAINP 10:36
PROVIDERS: PCP Physician Assistant; Visit Provider Anesthesiology Pain Medicine
DX: M46.1 Sacroiliitis, not elsewhere classified (principal); M54.5 Low back pain; G89.29 Other chronic pain; E78.5 Hyperlipidemia, unspecified; I10 Essential (primary) hypertension; M19.90 Unspecified osteoarthritis, unspecified site; E03.9 Hypothyroidism, unspecified; F41.9 Anxiety disorder, unspecified; D64.9 Anemia, unspecified; Z87.891 Personal history of nicotine dependence
CPT/HCPCS: 27096; G0260; J1040; Q9966

== ENCOUNTER → 2021-02-22 13:28 | Outpatient (CLI) | payer BC, OTHER, SELFPAY ==
--- NOTE | 2021-02-22 14:02 | XR_ITS ---
PROCEDURE: XR CHEST 2V CLINICAL HISTORY: OBESITY, MORBID OBESITY COMPARISON: CR XR CHEST 2V from 01/20/[address] ABDOMEN PELVIS W CON from 01/20/2020 FINDINGS: The cardiomediastinal silhouette and pulmonary vascularity are within normal limits. There is a faint area of increased density in the right lower lung zone centrally. This could be related overlying summation artifact. A faint patchy area of infiltrate is also a consideration as well as a small area of atelectasis. The remaining lungs are clear. No acute bony abnormalities. IMPRESSION: Faint opacity right lung base which could be due to an area of infiltrate, atelectasis, or summation artifact Dictated by: Rajat Martinez MD 02/22/2021 14:49 Rajat Martinez MD in [place] 02/22/2021 14:49
[2021-02-22 14:16] LABS: Hematocrit 39.2 % (37.0-47.0); Hemoglobin 13.3 g/dL (12.2-16.2); Mean Corpuscular HGB Conc 33.8 g/dL (31.8-35.4); Mean Corpuscular Hemoglobin 29.9 pg (27.0-31.2); Mean Corpuscular Volume 88.4 fl (81-99); Platelet Count 433 K/mm3 (142-424); Red Blood Count 4.43 M/mm3 (4.20-5.40); Red Cell Distribution Width 13.6 % (11.5-17.5); White Blood Count 7.6 K/mm3 (4.8-10.8)
[2021-02-22 14:59] LABS: Alanine Aminotransferase 40 U/L (12-78); Albumin Level 4.3 g/dl (3.5-5.0); Albumin/Globulin Ratio 1.5 (1.1-1.8); Alkaline Phosphatase 95 U/L (38-126); Anion Gap 10.1 mEq/L (5-15); Aspartate Amino Transferase 45 U/L (14-36); Bilirubin,Total 0.3 mg/dl (0.2-1.3); Blood Urea Nitrogen 18 mg/dl (7-17); Calcium 9.6 mg/dl (8.4-10.2); Carbon Dioxide 32 mmol/L (22.0-30.0); Chloride 101 mmol/L (98-107); Chol/HDL Ratio 3.6 (1-3.5); Cholesterol 175 mg/dl (140-200); Estimated Glomerular Filt Rate 93 ml/min (>60); GFR (African American) 112 ML/MIN (>60); Globulin 2.9 g/dL (1.3-3.2); Glucose 103 mg/dl (74-100); HDL Cholesterol 48 mg/dl (40-60); Magnesium 1.8 mg/dl (1.6-2.3); Phosphorous 3.5 mg/dl (2.5-4.5); Potassium 4.1 mmoL/L (3.5-5.1); Sodium 139 mmol/L (136-145); Total Protein,Serum 7.2 g/dl (6.3-8.2); Triglycerides 199 mg/dl (30-150); VLDL Cholesterol 40 mg/dL (0-40)
[2021-02-22 15:11] LABS: Intact Parathyroid Hormone 61.4 pg/mL (7.5-53.5)
[2021-02-22 15:16] LABS: 25-OH Vitamin D, Total 57.2 ng/mL (30-100)
[2021-02-22 16:33] LABS: Iron 34 ug/dL (37-170)
[2021-02-22 16:35] LABS: Hemoglobin A1C 5.4 % (4.0-6.0)
[2021-02-22 17:06] LABS: Thyroid Stimulating Hormone 0.61 uIU/mL (0.465-4.68)
[2021-02-22 17:09] LABS: Ferritin 16.9 ng/ml (6.24-137)
[2021-02-24 14:10] LABS: Prealbumin 26 mg/dL (14-35)
[2021-03-01 23:17] LABS: Methylmalonic Acid 180 nmol/L (0-378)
[2021-03-02 05:09] LABS: Vitamin A 57.8 ug/dL (20.1-62.0); Vitamin E Alpha Tocopherol 12.4 mg/L (7.0-25.1); Vitamin E Gamma Tocopherol 0.7 mg/L (0.5-5.5)
[2021-05-26 20:48] LABS: Cotinine 112.5; Nicotine 10.1
== END ==
PROVIDERS: Visit Provider Physician Assistant Medical
DX: E66.01 Morbid (severe) obesity due to excess calories (principal)
CPT/HCPCS: 36415; 71046; 80053; 80061; 80323; 82131; 82306; 82728; 82746; 83036; 83540; 83735; 83970; 84100; 84134; 84425; 84443; 84446; 84590; 85014; 85018; 85048; 85049

== ENCOUNTER → 2021-09-20 11:16 | Outpatient (CLI) | payer BC, OTHER, SELFPAY ==
[2021-09-20 11:49] LABS: Hematocrit 41.2 % (37.0-47.0); Hemoglobin 13.9 g/dL (12.2-16.2); Mean Corpuscular HGB Conc 33.8 g/dL (31.8-35.4); Mean Corpuscular Hemoglobin 31.8 pg (27.0-31.2); Mean Corpuscular Volume 94.2 fl (81-99); Platelet Count 329 K/mm3 (142-424); Red Blood Count 4.38 M/mm3 (4.20-5.40); Red Cell Distribution Width 13.3 % (11.5-17.5); White Blood Count 7.7 K/mm3 (4.8-10.8)
[2021-09-20 12:13] LABS: Chloride 104 mmol/L (98-107); Potassium 4.1 mmoL/L (3.5-5.1); Sodium 139 mmol/L (136-145)
[2021-09-20 12:15] LABS: Alanine Aminotransferase 60 U/L (12-78); Alkaline Phosphatase 83 U/L (38-126); Anion Gap 12.1 mEq/L (5-15); Aspartate Amino Transferase 48 U/L (14-36); Bilirubin,Total 0.8 mg/dl (0.2-1.3); Blood Urea Nitrogen 18 mg/dl (7-17); Carbon Dioxide 27 mmol/L (22.0-30.0); Estimated Glomerular Filt Rate 110 ml/min (>60); GFR (African American) 133 ML/MIN (>60); Iron 85 ug/dL (37-170)
[2021-09-20 12:16] LABS: Albumin Level 4.4 g/dl (3.5-5.0); Albumin/Globulin Ratio 1.8 (1.1-1.8); Calcium 9.7 mg/dl (8.4-10.2); Chol/HDL Ratio 3.7 (1-3.5); Cholesterol 153 mg/dl (140-200); Globulin 2.5 g/dL (1.3-3.2); Glucose 116 mg/dl (74-100); HDL Cholesterol 41 mg/dl (40-60); Magnesium 1.5 mg/dl (1.6-2.3); Phosphorous 3.4 mg/dl (2.5-4.5); Total Protein,Serum 6.9 g/dl (6.3-8.2); Triglycerides 185 mg/dl (30-150); VLDL Cholesterol 37 mg/dL (0-40)
[2021-09-20 12:27] LABS: Direct LDL Cholesterol 84.32 mg/dL (100-129)
[2021-09-20 12:47] LABS: Thyroid Stimulating Hormone 0.77 uIU/mL (0.465-4.68)
[2021-09-20 12:51] LABS: Ferritin 70.5 ng/ml (6.24-137)
[2021-09-20 13:06] LABS: Hemoglobin A1C 5.1 % (4.0-6.0)
[2021-09-21 07:12] LABS: Prealbumin 23 mg/dL (12-34)
[2021-09-21 10:27] LABS: Intact Parathyroid Hormone 62.8 pg/mL (7.5-53.5)
[2021-09-26 16:18] LABS: Methylmalonic Acid 127 nmol/L (0-378)
[2021-09-27 15:47] LABS: Vitamin E Alpha Tocopherol 13.4 mg/L (7.0-25.1); Vitamin E Gamma Tocopherol 0.7 mg/L (0.5-5.5)
== END ==
PROVIDERS: PCP Physician Assistant; Visit Provider Nurse Practitioner Family
DX: E03.9 Hypothyroidism, unspecified (principal); I10 Essential (primary) hypertension; R63.4 Abnormal weight loss; Z13.21 Encounter for screening for nutritional disorder
CPT/HCPCS: 36415; 80053; 80061; 82131; 82306; 82728; 82746; 83036; 83540; 83735; 83970; 84100; 84134; 84425; 84443; 84446; 84590; 85014; 85018; 85048; 85049; 85610

== ENCOUNTER 2022-04-14 22:42 | Emergency (ER) | payer BC, OTHER, SELFPAY ==
--- NOTE | 2022-04-14 22:47 | HMH.EDGENADL ---
Discharge Plan Disposition Patient Disposition: Home, Self-Care Condition: Good Chief Complaint: Extremity Injury, Upper Prescriptions Prescriptions: No Action Slow Fe 142 mg (45 mg iron) tablet extended release 142 mg PO DAILY Qty: 90 0RF ergocalciferol (vitamin D2) 1,250 mcg (50,000 unit) capsule See Rx Instructions .Route .COMPLEX Qty: 14 3RF Rx Instructions: take 1 capsule by mouth every week cyanocobalamin (vitamin B-12) 1,000 mcg/mL solution 1,000 mcg SQ WEEKLY Qty: 30 2RF Rx Instructions: 1 ml weekly X 4 weeks, then 1 ml monthly celecoxib 100 mg capsule 100 mg PO BID Qty: 180 1RF (DME) syringe with needle, safety [BD Safety-Angela Detachable Needl] 3 mL 22 gauge x 1 syringe See Rx Instructions .Route Qty: 10 1RF Rx Instructions: As directed omeprazole 40 mg capsule,delayed release(DR/EC) 40 mg PO DAILY Qty: 90 3RF venlafaxine 75 mg capsule,extended release 24hr See Rx Instructions .ROUTE .COMPLEX Qty: 90 3RF Dose Instruction: TAKE 1 CAPSULE BY MOUTH ONCE DAILY FOR MOOD Rx Instructions: TAKE 1 CAPSULE BY MOUTH ONCE DAILY FOR MOOD atorvastatin 10 mg tablet See Rx Instructions .ROUTE .COMPLEX Qty: 90 1RF Dose Instruction: TAKE 1 TABLET BY MOUTH AT BEDTIME FOR CHOLESTEROL Rx Instructions: TAKE 1 TABLET BY MOUTH AT BEDTIME FOR CHOLESTEROL metoprolol succinate 50 mg tablet extended release 24 hr 50 mg PO DAILY Qty: 90 0RF losartan-hydrochlorothiazide 50-12.5 mg tablet See Rx Instructions .ROUTE .COMPLEX Qty: 90 0RF Dose Instruction: Take 1 tablet by mouth once daily for blood pressure Rx Instructions: Take 1 tablet by mouth once daily for blood pressure cyclobenzaprine 10 mg tablet See Rx Instructions .ROUTE .COMPLEX Qty: 90 0RF Dose Instruction: TAKE 1 TABLET BY MOUTH THREE TIMES DAILY FOR MUSCLE RELAXATION Rx Instructions: TAKE 1 TABLET BY MOUTH THREE TIMES DAILY FOR MUSCLE RELAXATION levothyroxine 25 mcg tablet See Rx Instructions .ROUTE .COMPLEX Qty: 90 0RF Dose Instruction: TAKE 1 TABLET BY MOUTH ONCE DAILY FOR THYROID Rx Instructions: TAKE 1 TABLET BY MOUTH ONCE DAILY FOR THYROID diclofenac sodium 75 mg tablet,delayed release (DR/EC) See Rx Instructions .ROUTE .COMPLEX Qty: 60 0RF Dose Instruction: Take 1 tablet by mouth twice daily Rx Instructions: Take 1 tablet by mouth twice daily buspirone 15 mg tablet See Rx Instructions .ROUTE .COMPLEX Qty: 180 0RF Dose Instruction: TAKE 1 TABLET BY MOUTH TWICE DAILY FOR DEPRESSION Rx Instructions: TAKE 1 TABLET BY MOUTH TWICE DAILY FOR DEPRESSION gabapentin 100 MG capsule 100 mg PO NEEDED PRN (Reason: pain) Referrals Follow up/Referrals: Trice Sherman PA [Primary Care Provider] - See instructions Clinical Impressions Clinical Impression: Contusion of hand Instructions Patient Instructions: DI for Contusion Discharge ED Provider: Luis Nichols General Adult HPI General Chief complaint: Extremity Injury, Upper Stated complaint: AO 04/14@2030Injured R Hand Time Seen by Provider: 04/14/22 22:47 History of Present Illness HPI narrative: 41-year-old female presenting status post injury involving a stand mixer at home approximately 830 about 2 hours ago. She states she was trying to pull a spoon out of the mixer got caught in the mixer attachment, forced her hand against the ball and then the attachment struck her hand along the dorsal surface over the metacarpals particularly over the middle finger on the right. She denies any numbness or tingling, reports some mild swelling and ecchymosis, a little bit of pain with range of motion although no gross deformities and able to make a fist, flex and extend each finger. No treatments prior to arrival Related Data Home Medications Medication Instructions Recorded Confirmed gabapentin 100 mg capsule 100 mg
--- NOTE | 2022-04-14 22:49 | XR_ITS ---
PROCEDURE INFORMATION: Exam: XR Right Hand Exam date and time: 04/14/2022 10:48 PM Age: 41 years old Clinical indication: Pain; Hand; Right; Additional info: Mixer injury TECHNIQUE: Imaging protocol: Radiologic exam of the Right hand. Views: 3 or more views. COMPARISON: No relevant prior studies available. FINDINGS: Bones/joints: Normal. Soft tissues: Normal. IMPRESSION: No acute findings.
[2022-04-14 22:51] VITALS: BP 118/50; PULSE 79; RESP 18; TEMP 36.6; O2SAT 97; BMI 41.5
[2022-04-14 23:07] VITALS: BP 120/53; PULSE 82; RESP 16; TEMP 36.6; O2SAT 96
== END 2022-04-14 23:15 | disposition home or self-care (01) ==
PROVIDERS: Emergency Provider Emergency Medicine; PCP Physician Assistant
DX: S60.221A Contusion of right hand, initial encounter (principal); W29.0XXA Contact with powered kitchen appliance, initial encounter
CPT/HCPCS: 73130; 99283; 99284

== ENCOUNTER 2022-05-03 17:15 | Emergency (ER) | payer BC, OTHER, SELFPAY ==
[2022-05-03 17:30] VITALS: RESP 20; TEMP 37.3; O2SAT 96; BMI 41.2
--- NOTE | 2022-05-03 17:44 | EXP.UTC ---
Discharge Plan Disposition Patient Disposition: Home, Self-Care Condition: Good Prescriptions Prescriptions: New azithromycin [Zithromax] 250 mg tablet 250 mg PO UD DOSE PK Qty: 6 0RF Rx Instructions: Take two (2) tablets today, then one (1) tablet days #2 thru #5 benzonatate [benzonatate] 100 mg capsule 100 mg PO TIDP PRN (Reason: Cough) Qty: 30 0RF methylprednisolone 4 mg Tablets,Dose Pack 4 mg PO DIRECTED Qty: 21 0RF No Action Slow Fe 142 mg (45 mg iron) tablet extended release 142 mg PO DAILY Qty: 90 0RF ergocalciferol (vitamin D2) 1,250 mcg (50,000 unit) capsule See Rx Instructions .Route .COMPLEX Qty: 14 3RF Rx Instructions: take 1 capsule by mouth every week cyanocobalamin (vitamin B-12) 1,000 mcg/mL solution 1,000 mcg SQ WEEKLY Qty: 30 2RF Rx Instructions: 1 ml weekly X 4 weeks, then 1 ml monthly celecoxib 100 mg capsule 100 mg PO BID Qty: 180 1RF (DME) syringe with needle, safety [BD Safety-Angela Detachable Needl] 3 mL 22 gauge x 1 syringe See Rx Instructions .Route Qty: 10 1RF Rx Instructions: As directed omeprazole 40 mg capsule,delayed release(DR/EC) 40 mg PO DAILY Qty: 90 3RF venlafaxine 75 mg capsule,extended release 24hr See Rx Instructions .ROUTE .COMPLEX Qty: 90 3RF Dose Instruction: TAKE 1 CAPSULE BY MOUTH ONCE DAILY FOR MOOD Rx Instructions: TAKE 1 CAPSULE BY MOUTH ONCE DAILY FOR MOOD atorvastatin 10 mg tablet See Rx Instructions .ROUTE .COMPLEX Qty: 90 1RF Dose Instruction: TAKE 1 TABLET BY MOUTH AT BEDTIME FOR CHOLESTEROL Rx Instructions: TAKE 1 TABLET BY MOUTH AT BEDTIME FOR CHOLESTEROL metoprolol succinate 50 mg tablet extended release 24 hr 50 mg PO DAILY Qty: 90 0RF losartan-hydrochlorothiazide 50-12.5 mg tablet See Rx Instructions .ROUTE .COMPLEX Qty: 90 0RF Dose Instruction: Take 1 tablet by mouth once daily for blood pressure Rx Instructions: Take 1 tablet by mouth once daily for blood pressure cyclobenzaprine 10 mg tablet See Rx Instructions .ROUTE .COMPLEX Qty: 90 0RF Dose Instruction: TAKE 1 TABLET BY MOUTH THREE TIMES DAILY FOR MUSCLE RELAXATION Rx Instructions: TAKE 1 TABLET BY MOUTH THREE TIMES DAILY FOR MUSCLE RELAXATION levothyroxine 25 mcg tablet See Rx Instructions .ROUTE .COMPLEX Qty: 90 0RF Dose Instruction: TAKE 1 TABLET BY MOUTH ONCE DAILY FOR THYROID Rx Instructions: TAKE 1 TABLET BY MOUTH ONCE DAILY FOR THYROID diclofenac sodium 75 mg tablet,delayed release (DR/EC) See Rx Instructions .ROUTE .COMPLEX Qty: 60 0RF Dose Instruction: Take 1 tablet by mouth twice daily Rx Instructions: Take 1 tablet by mouth twice daily buspirone 15 mg tablet See Rx Instructions .ROUTE .COMPLEX Qty: 180 0RF Dose Instruction: TAKE 1 TABLET BY MOUTH TWICE DAILY FOR DEPRESSION Rx Instructions: TAKE 1 TABLET BY MOUTH TWICE DAILY FOR DEPRESSION gabapentin 100 MG capsule 100 mg PO NEEDED PRN (Reason: pain) Referrals Follow up/Referrals: Trice Sherman PA [Primary Care Provider] - See instructions Activity Restrictions/Add. Instructions Additional Instructions/Restrictions: Drink plenty of fluids. Take tylenol or ibuprofen for pain or fever. Take the medications as directed. Follow up with your regular doctor. GO TO THE ER FOR ANY WORSENING SYMPTOMS Clinical Impressions Clinical Impression: Sinusitis, Acute viral syndrome Instructions Patient Instructions: DI for Sinusitis Discharge ED Provider: Stanley Day [facility] General Stated complaint: COUGH cONGESTION Time Seen by Provider: 05/03/22 17:43 History of Present Illness Provider Complaint: She states that for the past 2 days she has had worsening sinus congestion and bilateral ear pain. Related Data Home Medications Medication Instructions Recorded Confirmed gabapentin 10
[2022-05-03 18:31] VITALS: BP 127/80; PULSE 115; RESP 20; TEMP 37.3; O2SAT 96
== END 2022-05-03 18:30 | disposition home or self-care (01) ==
PROVIDERS: Emergency Provider Nurse Practitioner Family; PCP Physician Assistant
DX: J32.9 Chronic sinusitis, unspecified (principal); B34.9 Viral infection, unspecified
CPT/HCPCS: 99212; 99213; G0463

== ENCOUNTER → 2022-05-25 13:41 | Outpatient (CLI) | payer BC, OTHER, SELFPAY ==
[2022-05-25 14:57] LABS: Basophils # 0.1 K/mm3 (0-0.2); Basophils % 1.6 % (0.1-2.0); Eosinophils # 0.4 K/mm3 (0.0-0.4); Eosinophils % 4.1 % (0.1-12.0); Hematocrit 38.4 % (37.0-47.0); Hemoglobin 12.6 g/dL (12.2-16.2); Lymphocytes # 4.4 K/mm3 (0.7-4.5); Lymphocytes % 48.8 % (10-50); Mean Corpuscular HGB Conc 32.9 g/dL (31.8-35.4); Mean Corpuscular Hemoglobin 30.5 pg (27.0-31.2); Mean Corpuscular Volume 92.6 fl (81-99); Mean Platelet Volume 7.6 fl (7.4-10.4); Monocytes # 0.5 K/mm3 (0.1-1.0); Neutrophils # 3.5 K/mm3 (1.8-7.8); Neutrophils % 39.6 % (37.0-80.0); Platelet Count 427 K/mm3 (142-424); Red Blood Count 4.15 M/mm3 (4.20-5.40); Red Cell Distribution Width 12.6 % (11.5-17.5); White Blood Count 8.9 K/mm3 (4.8-10.8)
[2022-05-25 15:29] LABS: Alanine Aminotransferase 31 U/L (12-78); Albumin Level 4.4 g/dl (3.5-5.0); Albumin/Globulin Ratio 1.7 (1.1-1.8); Alkaline Phosphatase 74 U/L (38-126); Anion Gap 7.2 mEq/L (5-15); Aspartate Amino Transferase 36 U/L (14-36); Bilirubin,Total 0.8 mg/dl (0.2-1.3); Blood Urea Nitrogen 13 mg/dl (7-17); Calcium 9.5 mg/dl (8.4-10.2); Carbon Dioxide 31 mmol/L (22.0-30.0); Chloride 105 mmol/L (98-107); Chol/HDL Ratio 4.3 (1-3.5); Cholesterol 217 mg/dl (140-200); Estimated Glomerular Filt Rate 79 ml/min (>60); GFR (African American) 95 ML/MIN (>60); Globulin 2.6 g/dL (1.3-3.2); Glucose 85 mg/dl (74-100); HDL Cholesterol 51 mg/dl (40-60); Potassium 4.2 mmoL/L (3.5-5.1); Sodium 139 mmol/L (136-145); Triglycerides 165 mg/dl (30-150); VLDL Cholesterol 33 mg/dL (0-40)
[2022-05-25 15:50] LABS: 25-OH Vitamin D, Total 43.7 ng/mL (30-100)
[2022-05-25 17:28] LABS: Iron 101 ug/dL (37-170)
[2022-05-25 17:35] LABS: Total Iron Binding Capacity 235 ug/dL (265-497)
[2022-05-25 18:03] LABS: Hemoglobin A1C 5.2 % (4.0-6.0)
[2022-05-29 19:39] LABS: Vitamin B1 155.4 nmol/L (66.5-200.0)
[2022-05-30 12:11] LABS: Ferritin 91.3 ng/ml (6.24-137)
[2022-05-31 14:13] LABS: Methylmalonic Acid 164 nmol/L (0-378)
[2022-06-04 14:10] LABS: Vitamin A 56.3 ug/dL (20.1-62.0); Vitamin E Alpha Tocopherol 10.5 mg/L (7.0-25.1); Vitamin E Gamma Tocopherol 0.5 mg/L (0.5-5.5)
== END ==
PROVIDERS: PCP Physician Assistant; Visit Provider Nurse Practitioner Family
DX: Z90.3 Acquired absence of stomach [part of] (principal)
CPT/HCPCS: 36415; 80053; 80061; 82131; 82306; 82728; 82746; 83036; 83540; 83550; 84425; 84446; 84590; 85025

== ENCOUNTER → 2022-07-09 14:41 | Outpatient (CLI) | payer BC, OTHER, SELFPAY ==
[2022-07-09 18:50] LABS: Intact Parathyroid Hormone 71.6 pg/mL (7.5-53.5)
[2022-07-09 19:09] LABS: Thyroid Stimulating Hormone 0.41 uIU/mL (0.465-4.68)
== END ==
PROVIDERS: PCP Physician Assistant; Visit Provider Physician Assistant
DX: Z00.00 Encounter for general adult medical examination without abnormal findings (principal); E34.9 Endocrine disorder, unspecified
CPT/HCPCS: 83970; 84443

== ENCOUNTER → 2022-08-13 09:56 | Outpatient (CLI) | payer BC, OTHER, SELFPAY ==
--- NOTE | 2022-08-13 09:57 | NM_ITS ---
FINAL REPORT CLINICAL HISTORY: Elevated PTH FINDINGS: 21.8 mCi Technetium 99-M Sestamibi was administered. Planar imaging was performed early and two-hour delayed of the neck and upper thorax. Early imaging shows physiologic uptake within the upper neck involving the salivary glands and lower neck involving the thyroid gland. On delayed imaging there is no abnormal retained activity in the lower neck or mediastinum to localize parathyroid adenoma. IMPRESSION: No scintigraphic evidence of parathyroid adenoma. Reviewed, Interpreted and Dictated by Chriss Crowe III, MD Transcribed by Rufus Hernández Authenticated and [facility]
== END ==
PROVIDERS: PCP Physician Assistant; Visit Provider Physician Assistant
DX: R79.89 Other specified abnormal findings of blood chemistry (principal)
CPT/HCPCS: 78070; A9500

== ENCOUNTER → 2022-12-15 10:46 | Outpatient (CLI) | payer BC, OTHER, SELFPAY ==
[2022-12-15 11:32] LABS: Basophils # 0.1 K/mm3 (0-0.2); Eosinophils # 0.6 K/mm3 (0.0-0.4); Eosinophils % 5.9 % (0.1-12.0); Hematocrit 42.1 % (37.0-47.0); Hemoglobin 13.9 g/dL (12.2-16.2); Lymphocytes # 3.1 K/mm3 (0.7-4.5); Lymphocytes % 30.1 % (10-50); Mean Corpuscular Hemoglobin 30.4 pg (27.0-31.2); Mean Corpuscular Volume 92.2 fl (81-99); Mean Platelet Volume 7.5 fl (7.4-10.4); Monocytes # 0.5 K/mm3 (0.1-1.0); Monocytes % 4.7 % (1.7-9.3); Neutrophils % 58.3 % (37.0-80.0); Platelet Count 371 K/mm3 (142-424); Red Blood Count 4.57 M/mm3 (4.20-5.40); Red Cell Distribution Width 12.8 % (11.5-17.5); White Blood Count 10.3 K/mm3 (4.8-10.8)
[2022-12-15 12:09] LABS: Chloride 103 mmol/L (98-107)
[2022-12-15 12:10] LABS: Potassium 3.8 mmoL/L (3.5-5.1); Sodium 141 mmol/L (136-145)
[2022-12-15 12:12] LABS: Alanine Aminotransferase 30 U/L (12-78); Alkaline Phosphatase 88 U/L (38-126); Anion Gap 13.8 mEq/L (5-15); Aspartate Amino Transferase 31 U/L (14-36); Bilirubin,Total 0.5 mg/dl (0.2-1.3); Blood Urea Nitrogen 18 mg/dl (7-17); Carbon Dioxide 28 mmol/L (22.0-30.0); Estimated Glomerular Filt Rate 92 ml/min (>60); GFR (African American) 111 ML/MIN (>60); Triglycerides 242 mg/dl (30-150); VLDL Cholesterol 48 mg/dL (0-40)
[2022-12-15 12:13] LABS: Albumin Level 3.9 g/dl (3.5-5.0); Albumin/Globulin Ratio 1.4 (1.1-1.8); Calcium 9.2 mg/dl (8.4-10.2); Chol/HDL Ratio 4.9 (1-3.5); Cholesterol 243 mg/dl (140-200); Globulin 2.7 g/dL (1.3-3.2); Glucose 97 mg/dl (74-100); HDL Cholesterol 50 mg/dl (40-60); Iron 107 ug/dL (37-170); Total Protein,Serum 6.6 g/dl (6.3-8.2)
[2022-12-15 12:40] LABS: Intact Parathyroid Hormone 107.2 pg/mL (7.5-53.5)
[2022-12-15 14:13] LABS: Total Iron Binding Capacity 244 ug/dL (265-497)
[2022-12-15 14:29] LABS: 25-OH Vitamin D, Total 31.1 ng/mL (30-100)
[2022-12-15 15:40] LABS: Thyroid Stimulating Hormone 1.28 uIU/mL (0.465-4.68)
[2022-12-17 14:19] LABS: Prealbumin 26 mg/dL (12-34)
[2022-12-19 19:06] LABS: Vitamin E Alpha Tocopherol 12.8 mg/L (7.0-25.1)
[2022-12-20 19:50] LABS: Vitamin A 57.5 ug/dL (20.1-62.0)
[2022-12-21 14:20] LABS: Vitamin B1 145.4 nmol/L (66.5-200.0)
[2022-12-23 10:37] LABS: Methylmalonic Acid 142 nmol/L (0-378)
== END ==
PROVIDERS: Physician Assistant; PCP Physician Assistant; Visit Provider Nurse Practitioner
DX: Z90.3 Acquired absence of stomach [part of] (principal); E66.9 Obesity, unspecified; Z68.36 Body mass index [BMI] 36.0-36.9, adult; Z79.899 Other long term (current) drug therapy
CPT/HCPCS: 36415; 80053; 80061; 82306; 82728; 82746; 83036; 83540; 83550; 83921; 83970; 84134; 84425; 84439; 84443; 84446; 84590; 85025

== ENCOUNTER 2022-12-15 11:04 | Emergency (ER) | payer BC, OTHER, SELFPAY ==
[2022-12-15 11:05] VITALS: BP 99/58; PULSE 65; RESP 17; TEMP 36.9; O2SAT 97; BMI 36.5
--- NOTE | 2022-12-15 11:21 | EXP.UTC ---
Discharge Plan Disposition Patient Disposition: Home, Self-Care Condition: Good Prescriptions Prescriptions: New amoxicillin [amoxicillin] 500 mg tablet 500 mg PO BID 10 Days Qty: 20 0RF [id number] 3.5-10,000-1 mg/mL-unit/mL-% drops,suspension 4 drp otic (ear) TID 10 Days Qty: 10 0RF Rx Instructions: both ears No Action ergocalciferol (vitamin D2) 1,250 mcg (50,000 unit) capsule See Rx Instructions .Route .COMPLEX Qty: 14 3RF Rx Instructions: take 1 capsule by mouth every week hydrochlorothiazide 12.5 mg capsule 12.5 mg PO DAILY Qty: 90 3RF losartan 50 mg tablet 50 mg PO DAILY Qty: 90 3RF metoprolol succinate 50 mg tablet extended release 24 hr 50 mg PO DAILY Qty: 90 3RF cetirizine [Zyrtec] 10 mg tablet 10 mg PO DAILY Qty: 10 0RF triamcinolone acetonide 0.1 % lotion 1 applic topical TID PRN (Reason: itching) Qty: 60 1RF omeprazole 40 mg capsule,delayed release(DR/EC) 40 mg PO DAILY Qty: 90 3RF venlafaxine 75 mg capsule,extended release 24hr See Rx Instructions .ROUTE .COMPLEX Qty: 90 3RF Dose Instruction: TAKE 1 CAPSULE BY MOUTH ONCE DAILY FOR MOOD Rx Instructions: TAKE 1 CAPSULE BY MOUTH ONCE DAILY FOR MOOD nystatin 100,000 unit/gram cream See Rx Instructions .ROUTE .COMPLEX Qty: 15 0RF Dose Instruction: APPLY CREAM TOPICALLY TWICE DAILY Rx Instructions: APPLY CREAM TOPICALLY TWICE DAILY diclofenac sodium 75 mg tablet,delayed release (DR/EC) See Rx Instructions .ROUTE .COMPLEX Qty: 60 0RF Dose Instruction: Take 1 tablet by mouth twice daily Rx Instructions: Take 1 tablet by mouth twice daily cyclobenzaprine 10 mg tablet See Rx Instructions .ROUTE .COMPLEX Qty: 90 0RF Dose Instruction: TAKE 1 TABLET BY MOUTH THREE TIMES DAILY FOR MUSCLE RELAXATION Rx Instructions: TAKE 1 TABLET BY MOUTH THREE TIMES DAILY FOR MUSCLE RELAXATION buspirone 15 mg tablet See Rx Instructions .ROUTE .COMPLEX Qty: 180 0RF Dose Instruction: TAKE 1 TABLET BY MOUTH TWICE DAILY FOR DEPRESSION Rx Instructions: TAKE 1 TABLET BY MOUTH TWICE DAILY FOR DEPRESSION levothyroxine 25 mcg tablet See Rx Instructions .ROUTE .COMPLEX Qty: 90 0RF Dose Instruction: TAKE 1 TABLET BY MOUTH ONCE DAILY FOR THYROID Rx Instructions: TAKE 1 TABLET BY MOUTH ONCE DAILY FOR THYROID atorvastatin 10 mg tablet See Rx Instructions .ROUTE .COMPLEX Qty: 90 0RF Dose Instruction: TAKE 1 TABLET BY MOUTH AT BEDTIME FOR CHOLESTEROL Rx Instructions: TAKE 1 TABLET BY MOUTH AT BEDTIME FOR CHOLESTEROL cyanocobalamin (vitamin B-12) 1,000 mcg/mL solution See Rx Instructions .ROUTE .COMPLEX Qty: 4 2RF Dose Instruction: INJECT 1 ML (CC) INTRAMUSCULARLY ONCE A WEEK FOR 4 WEEKS, THEN INJECT 1ML MONTHLY Rx Instructions: INJECT 1 ML (CC) INTRAMUSCULARLY ONCE A WEEK FOR 4 WEEKS, THEN INJECT 1ML MONTHLY dextroamphetamine-amphetamine [Adderall XR] 25 mg capsule,extended release 24hr 25 mg PO DAILY Qty: 30 0RF Referrals Follow up/Referrals: Trice Sherman PA [Primary Care Provider] - See instructions Activity Restrictions/Add. Instructions Additional Instructions/Restrictions: Start antibiotic as soon as possible and be sure to take as ordered for full length of time even though he should start feeling better in 24-48 hours. Tylenol or Motrin as needed for pain or fever Encourage fluids, water, Gatorade, Powerade, Pedialyte if /toddler/child Warm compresses often helps when placed over ear Return immediately for new or worsening symptoms no noticeable improvement in 48-72 hours and in 10-14 days to ensure the ears are return to baseline. Follow-up with primary care Clinical Impressions Clinical Impression: Otitis media Qualifiers: Otitis media type: suppurative Chronicity: acute Laterality: bilateral Recurrence: non-recurrent Spontaneous tympanic membr
[2022-12-15 11:31] VITALS: BP 99/58; PULSE 65; RESP 17; TEMP 36.9; O2SAT 97
== END 2022-12-15 11:33 | disposition home or self-care (01) ==
PROVIDERS: Emergency Provider Nurse Practitioner Family; PCP Physician Assistant
DX: H66.003 Acute suppurative otitis media without spontaneous rupture of ear drum, bilateral (principal); H60.503 Unspecified acute noninfective otitis externa, bilateral; E78.5 Hyperlipidemia, unspecified; I10 Essential (primary) hypertension; K21.9 Gastro-esophageal reflux disease without esophagitis; E55.9 Vitamin D deficiency, unspecified; E53.8 Deficiency of other specified B group vitamins; M19.90 Unspecified osteoarthritis, unspecified site; E66.01 Morbid (severe) obesity due to excess calories; F32.A Depression, unspecified
CPT/HCPCS: 99212; 99214; G0463

== ENCOUNTER → 2023-01-16 17:00 | Outpatient (CLI) | payer BC, OTHER, SELFPAY ==
[2023-01-16 15:45] LABS: Cholesterol 210 mg/dl (140-200); Triglycerides 246 mg/dl (30-150); VLDL Cholesterol 49 mg/dL (0-40)
[2023-01-16 15:46] LABS: HDL Cholesterol 42 mg/dl (40-60)
[2023-01-16 15:56] LABS: Direct LDL Cholesterol 114.12 mg/dL (100-129)
[2023-01-18 16:38] LABS: Calcium, Ionized 5.2 mg/dL (4.5-5.6)
== END ==
PROVIDERS: PCP Physician Assistant; Visit Provider Internal Medicine
DX: E21.3 Hyperparathyroidism, unspecified (principal)
CPT/HCPCS: 80061; 82330

== ENCOUNTER → 2023-01-24 09:04 | Outpatient (CLI) | payer BC, OTHER, SELFPAY ==
--- NOTE | 2023-01-24 09:04 | XR_ITS ---
FINAL REPORT CLINICAL HISTORY: Osteoporosis screening COMPARISON: None FINDINGS: Using L1-4, the bone mineral density of the spine is 1.092 g/cm2, corresponding to T-score of 0.4, within normal limits. Using the left hip, the bone mineral density of the femoral neck is 0.882 g/cm2, corresponding to a T-score of 0.3, within normal limits. Using the right hip, the bone mineral density of the femoral neck is 0.930 g/cm2, corresponding to a T-score of 0.7, within normal limits. FRAX not reported because all T-scores at or above -1.0. NOTE: T-score: Standard deviation compared with peak bone mass of young adult mean. *Following the recommendations of the International Society of Bone densitometry, classification of hip BMD is based on the lower of two T-scores; total hip or femoral neck. IMPRESSION: Normal bone mineral density of the lumbar spine and hips. Reviewed, Interpreted and Dictated by Chriss Crowe III, MD Transcribed by Dee Flowers Authenticated and [facility]
== END ==
PROVIDERS: PCP Physician Assistant; Visit Provider Internal Medicine
DX: Z13.820 Encounter for screening for osteoporosis (principal); M19.90 Unspecified osteoarthritis, unspecified site
CPT/HCPCS: 77080

== ENCOUNTER 2023-12-27 09:34 | Outpatient (CLI) | payer BC, SELFPAY ==
[2023-12-28 08:17] LABS: Estradiol 11.8 pg/mL (.); FSH 16.7 mIU/mL (.); LH 8.3 mIU/mL (.)
== END 2023-12-27 23:59 | disposition home or self-care (01) ==
PROVIDERS: PCP Physician Assistant; Visit Provider Nurse Practitioner Obstetrics & Gynecology
DX: N92.6 Irregular menstruation, unspecified (principal)
CPT/HCPCS: 36415; 82670; 83001; 83002

== ENCOUNTER 2023-12-31 14:12 | Outpatient (CLI) | payer BC, SELFPAY ==
--- NOTE | 2023-12-31 14:12 | US_ITS ---
PROCEDURE: US TRANSVAGINAL CLINICAL INDICATION: abnormal vaginal bleeding COMPARISON: No exams were available for comparison FINDINGS: Transvaginal sonographic images of the pelvis were obtained. UTERUS: 9.5 cm x 7.1cmx 4.6 cm anteverted with a combined endometrial thickness of 9.3mm. There are small hyperechoic areas along the anterior endometrium. LEFT OVARY: 1.6 cmx2.6 cmx2.9cm with a volume of 6.4ml. There is a small hyperechoic area within the left ovary measuring 0.64 cm x 1.0 cm x 0.63 cm RIGHT OVARY: 2.7 cmx 1.1cmx2.0cm with a volume of 3.1ml. Both ovaries are seen and appear normal. Doppler flow to both ovaries are seen. There is no fluid in the cul-de-sac. IMPRESSION: 1. Anteverted, bulky uterus. The endometrium appears normal and measures 9.3 mm. 2. There are multiple small calcifications along the anterior endometrium. 3. Both ovaries are seen and appear normal. There is a hyperechoic area in the left ovary that measures 1 cm in size. 4. No fluid in the cul-de-sac. Dictated by: Parviz Lockwood MD 12/31/2023 18:22 Parviz Lockwood MD in [place] 12/31/2023 18:22
== END 2023-12-31 23:59 | disposition home or self-care (01) ==
LOC: RAD 14:12
PROVIDERS: PCP Physician Assistant; Visit Provider Nurse Practitioner Obstetrics & Gynecology
DX: N93.9 Abnormal uterine and vaginal bleeding, unspecified (principal)
CPT/HCPCS: 76830

== ENCOUNTER 2024-01-16 14:06 | Emergency (ER) | payer BC, SELFPAY ==
[2024-01-16 14:07] VITALS: BP 97/47; PULSE 91; RESP 16; TEMP 36.8; O2SAT 100; BMI 34.2
--- NOTE | 2024-01-16 14:13 | ED_ITS ---
<Statement entered by Raven Bill MD - 01/16/24 23:01> I was consulted by the CARINA, and we discussed the complexity of the problems being addressed. I approved the treatment and management plan for this patient's care in the emergency department, thus performing a substantive portion of the medical decision making. Raven Bill MD, CHARLA, FACEP Discharge Plan Disposition Patient Disposition: Home, Self-Care Condition: Good Prescriptions Prescriptions: New ymbzykdoqbeatbl-kuvlgdrre-GU [Bromfed DM] 2-30-10 mg/5 mL syrup 5 ml PO Q4H PRN (Reason: sinus symptoms) Qty: 118 0RF ondansetron 4 mg tablet,disintegrating 4 mg PO Q6H PRN (Reason: nausea and vomiting) Qty: 10 0RF No Action ergocalciferol (vitamin D2) 1,250 mcg (50,000 unit) capsule See Rx Instructions .Route .COMPLEX Qty: 14 3RF Rx Instructions: take 1 capsule by mouth every week hydrochlorothiazide 12.5 mg capsule 12.5 mg PO DAILY Qty: 90 3RF metoprolol succinate 50 mg tablet extended release 24 hr 50 mg PO DAILY Qty: 90 3RF atorvastatin 10 mg tablet 20 mg PO DAILY 30 Days Qty: 60 0RF losartan 50 mg tablet 50 mg PO DAILY Qty: 90 3RF famotidine 20 mg tablet PO Patient Comments: TAKE 1 TABLET BY MOUTH ONCE DAILY AT BEDTIME cetirizine [Zyrtec] 10 mg tablet 10 mg PO DAILY Qty: 10 0RF omeprazole 40 mg capsule,delayed release(DR/EC) 40 mg PO DAILY Patient Comments: TAKE 1 CAPSULE BY MOUTH ONCE DAILY FOR GERD venlafaxine 75 mg capsule,extended release 24hr See Rx Instructions .ROUTE .COMPLEX Qty: 90 3RF Dose Instruction: TAKE 1 CAPSULE BY MOUTH ONCE DAILY FOR MOOD Rx Instructions: TAKE 1 CAPSULE BY MOUTH ONCE DAILY FOR MOOD buspirone 15 mg tablet See Rx Instructions .ROUTE .COMPLEX Qty: 180 0RF Dose Instruction: TAKE 1 TABLET BY MOUTH TWICE DAILY FOR DEPRESSION Rx Instructions: TAKE 1 TABLET BY MOUTH TWICE DAILY FOR DEPRESSION levothyroxine 25 mcg tablet See Rx Instructions .ROUTE .COMPLEX Qty: 90 0RF Dose Instruction: TAKE 1 TABLET BY MOUTH ONCE DAILY FOR THYROID Rx Instructions: TAKE 1 TABLET BY MOUTH ONCE DAILY FOR THYROID diclofenac sodium 75 mg tablet,delayed release (DR/EC) See Rx Instructions .ROUTE .COMPLEX Qty: 60 0RF Dose Instruction: Take 1 tablet by mouth twice daily Rx Instructions: Take 1 tablet by mouth twice daily cyanocobalamin (vitamin B-12) 1,000 mcg/mL solution See Rx Instructions .ROUTE .COMPLEX Qty: 4 2RF Dose Instruction: INJECT 1 ML (CC) INTRAMUSCULARLY ONCE A WEEK FOR 4 WEEKS, THEN INJECT 1ML MONTHLY Rx Instructions: 1 ml monthly dextroamphetamine-amphetamine [Adderall XR] 25 mg capsule,extended release 24hr 25 mg PO DAILY Qty: 30 0RF Referrals Follow up/Referrals: Trice Sherman PA [Primary Care Provider] - See instructions Luther Marie II, MD [Staff Physician] - See instructions Activity Restrictions/Add. Instructions Additional Instructions/Restrictions: I have referred you to gastroenterology for evaluation of your elevated liver enzymes. Follow-up with your PCP within 48 hours for recheck. I have sent Bromfed into your pharmacy. Please hold your Zyrtec while taking Bromfed. Take with caution with your Adderall. Follow-up with your PCP for no improvement or worsening signs or symptoms or return to the ER as needed. Clinical Impressions Clinical Impression: Acute upper respiratory infection, Transaminitis, Nausea vomiting and diarrhea Print Language Print Language: Ukrainian Discharge ED Provider: Raven Bill General Adult HPI <YUE Armstrong - Last Filed: 01/16/24 17:26> General Chief complaint: Upper Respiratory Infection Stated complaint: chills, fever, nauseous Time Seen by Provider: 01/16/24 14:13 History of Present Illness HPI narrative: Patient presents for evaluation of upper respiratory tract infection symptoms. Patient gives a 24-hour history of cough malaise headache body aches mild sore throat without chest pain shortness of breath hemoptysis hematochezia melena hematemesis Related Data Home Medications ?Medication ?Instructions ?Recorded ?Confirmed famotidine 20 mg tablet mg PO 08/22/23 12/27/23 omeprazole 40 mg capsule,delayed 40 mg PO DAILY 12/27/23 12/27/23 release Previous Rx's ?Medication ?Instructions ?Recorded ergocalciferol (vitamin D2) 1,250 See Rx Instructions .Route 02/27/21 mcg (50,000 unit) capsule .COMPLEX Supplement #14 caps venlafaxine 75 mg capsule,extended See Rx Instructions .Route 11/20/21 release 24 hr .COMPLEX #90 caps cetirizine 10 mg tablet (Zyrtec) 10 mg PO DAILY #10 tabs 08/30/22 buspirone 15 mg tablet See Rx Instructions .Route 09/18/22 .COMPLEX #180 tabs levothyroxine 25 mcg tablet See Rx Instructions .Route 09/18/22 .COMPLEX #90 tabs hydrochlorothiazide 12.5 mg capsule 12.5 mg PO DAILY #90 caps 10/16/22 metoprolol succinate 50 mg 50 mg PO DAILY blood pressure #90 10/16/22 tablet,extended release 24 hr tabs atorvastatin 10 mg tablet 20 mg (2 x 10 mg) PO DAILY 30 days 12/26/22 #60 tabs losartan 50 mg tablet 50 mg PO DAILY #90 tabs 12/26/22 diclofenac sodium 75 mg See Rx Instructions .Route 01/09/23 tablet,delayed release .COMPLEX #60 tabs cyanocobalamin (vitamin B-12) See Rx Instructions .Route 01/31/23 1,000 mcg/mL injection solution .COMPLEX #4 mL dextroamphetamine-amphetamine ER 25 mg PO DAILY #30 caps 11/07/23 25 mg 24hr capsule,extend release (Adderall XR) llvmapxjtxzesba-cgacpxrjinjmbit-VR 5 ml PO Q4H PRN sinus symptoms 01/16/24 2 mg-30 mg-10 mg/5 mL oral syrup #118 mL (Bromfed DM) ondansetron 4 mg disintegrating 4 mg PO Q6H PRN nausea and 01/16/24 tablet vomiting #10 tabs Allergies Allergy/AdvReac Type Severity Reaction Status Date / Time lisinopril Allergy Verified 12/27/23 08:57 [facility] <YUE Armstrong - Last Filed: 01/16/24 17:26> [facility] Disclaimer: The information contained in this section may have been updated after the patient was seen, as this information can be updated by other users. Medical History B12 deficiency B12 levels were normal drawn at the last visit. Osteoarthritis BMI 45.0-49.9, adult Obesity, morbid, BMI 50 or higher Gastroesophageal reflux disease Family history of heart disease Daytime somnolence Snoring Swelling Morbid obesity Dyspnea Chest pain Abnormal weight BMI 50.0-59.9, adult Hyperlipidemia I have suggested to Krystle that she go on omega-3 for 6 fatty acids. She is to talk with her pharmacist about the best option. Vitamin D deficiency Vitamin D was normal. Follow Hypertension Today is 118/66. Her blood pressure appears well-controlled on the current medical plan. Low back pain with sciatica UTI (urinary tract infection) Depression Encounter for smoking cessation counseling Sinusitis Surgical History Bariatric surgery status Family History Other No significant family history Social History Smoking Status: Never smoker second hand exposure: No alcohol intake: never substance use type: denies use current occupational status: disabled Travel in the last 8 weeks: None household members: spouse and children housing: house current occupational exposures/hazards: No caffeine: Yes Other Medical History Have you received the Flu Vaccine for this season: No Have you received the Pneumonia Vaccine: No <YUE Armstrong - Last Filed: 01/16/24 17:26> ROS Obtained: Yes Systems reviewed as appropriate & no additional complaints except as documented Physical Exam <YUE Armstrong - Last Filed: 01/16/24 17:26> General General appearance: alert and in no apparent distress Respiratory Respiratory exam: Present normal lung sounds bilaterally Cardiovascular Cardiovascular exam: Present regular rate Neurological Exam Neurological exam: Present alert and oriented X3 Medical Decision Making <YUE Armstrong - Last Filed: 01/16/24 17:26> Medical Records Medical records reviewed: Yes I reviewed the patient's medical records. Screening: Per USPSTF and CDC recommendations, given the prevalence of disease in our region, it is our hospital?s policy to screen for HIV and viral Hepatitis for all patients aged 18 and over and those with ongoing risk factors. Valeriano Inquiry Pt receiving controlled substance: No Vital Signs: 01/16/24 14:07 01/16/24 16:03 01/16/24 16:30 Temperature 98.2 F Temperature Source Oral Pulse Rate 80 70 Pulse Rate [Right] 91 H Respiratory Rate 16 Blood Pressure 86/55 L 97/45 L Blood Pressure [Right Arm] 97/47 L Blood Pressure Mean [Right Arm] 63 02 Sat by Pulse Oximetry 100 99 98 01/16/24 16:45 Temperature Temperature Source Pulse Rate 72 Pulse Rate [Right] Respiratory Rate Blood Pressure 87/45 L Blood Pressure [Right Arm] Blood Pressure Mean [Right Arm] 02 Sat by Pulse Oximetry 100 Lab Data Lab results reviewed: Yes I reviewed the patient's lab results. Lab Results 01/16/24 14:15: SARS-CoV-2 (PCR) Not detected, Influenza A Untype (PCR) Not detected, Influenza Type B (PCR) Not detected 01/16/24 14:17: Group A Strep Rapid Negative 01/16/24 15:56: WBC 7.5, RBC 4.68, Hgb 14.7, Hct 42.1, MCV 89.9, MCH 31.5 H, MCHC 35.0, RDW 12.8, Plt Count 235, MPV 6.9 L, Neut % (Auto) 90.3 H, Lymph % (Auto) 6.2 L, Jack % (Auto) 2.0, Eos % (Auto) 0.9, Baso % (Auto) 0.6, Neut # (Auto) 6.7, Lymph # (Auto) 0.5 L, Jack # (Auto) 0.2, Eos # (Auto) 0.1, Baso # (Auto) 0.0, Total Counted 100, Neutrophils % (Manual) 75, Band Neutrophils % 8.0, Lymphocytes % (Manual) 12, Monocytes % (Manual) 3, Eosinophils % (Manual) 1, Basophils % (Manual) 1.0, Platelet Estimate Normal, Anisocytosis 1+, Microcytosis 1+, Sodium 137, Potassium 3.6, Chloride 99, Carbon Dioxide 27, Anion Gap 14.6, BUN 29 H, Creatinine 1.00, Estimated Creat Clear 91, Estimated GFR 61, Est GFR ( Amer) 73, Glucose 108 H, Calcium 9.4, Magnesium 1.8, Total Bilirubin 1.0, AST 145 H, ALT 107 H, Alkaline Phosphatase 127 H, Total Protein 7.7, Albumin 4.5, Globulin 3.2, Albumin/Globulin Ratio 1.4 01/16/24 15:56 01/16/24 15:56 Orders (Tests/Meds): ED MEDICATIONS Discontinued Medications Generic Name Dose Route Start Last Admin Trade Name Giancarlo PRN Reason Stop Dose Admin Acetaminophen 1,000 mg 01/16/24 14:38 01/16/24 14:44 Acetaminophen 500mg Tab PO 01/16/24 14:39 1,000 mg ONCE ONE Administration Sodium Chloride 1,000 mls @ 999 mls/hr 01/16/24 15:48 01/16/24 15:59 Sod Chlor 0.9% 1000ml Bag IV 01/16/24 16:48 999 mls/hr .Q1H1M ONE Administration Ibuprofen 800 mg 01/16/24 14:38 01/16/24 14:44 Ibuprofen 400 Mg Tablet PO 01/16/24 14:39 800 mg ONCE ONE Administration Ondansetron HCl 4 mg 01/16/24 15:48 01/16/24 15:59 Ondansetron 4mg/2ml Vial IV 01/16/24 15:49 4 mg ONCE ONE Administration ORDERS Category Date Time Status CBC w/Auto Diff [Complete Blood Count Auto Diff] Stat Lab 01/16/24 15:56 Completed CMP [Comprehensive Metabolic Panel] Stat Lab 01/16/24 15:56 Completed HIV (1&2) Antibody Rapid Stat Lab 01/16/24 15:56 Received Hep C Ab with Reflex to RNA Stat Lab 01/16/24 14:21 Received Magnesium Stat Lab 01/16/24 15:56 Completed Rapid PCR Covid and Flu A/B Stat Lab 01/16/24 14:15 Completed Rapid Strep Scrn Group A [Strep Scrn Group A (Rapid)] Lab 01/16/24 14:17 Completed Stat UA [Urinalysis and Microscopic] Stat Lab 01/16/24 15:49 Ordered Strep Screen Confirmation Stat Micro 01/16/24 14:17 Received Medical Decision Narrative: DiscIn summary patient is a 43-year-old female who presents to the emergency department for evaluation of upper respiratory tract infection. Patient is slightly hypotensive at 97/47 but heart rate of 91 respiratory rate is 16 satting at 100% on room air upon arrival, with a temperature of 98.2. Physical exam is remarkable for clear breath sounds erythematous posterior pharynx without evidence of exudate boggy congested nasal mucosa normal bilateral tympanic membranes no lymphadenopathy in the cervical chains. Differential diagnosis includes viral versus bacterial upper respiratory tract infection. Initial workup will be conducted with COVID flu and strep swabs. Initial interventions include Tylenol and ibuprofen. Initial workup reviewed by me and her swabs are all negative. Upon repeat evaluation had modest improvement after additional intervention. Given this patient is appropriate for discharge with prescription for Bromfed sent to her pharmacy. Vital signs patient was noted to be hypotensive but not tachycardic. Then she then admitted that she has been having nausea vomiting and feeling lightheaded when standing up. She has not taken her Adderall in 2 days or any of her medication in 2 days due to the nausea vomiting she says. Given that we have reopen her workup will order basic labs and IV fluids and reassess. Patient's labs are reassuring however she has transaminitis without hyperbilirubinemia. Upon reassessment at 1715 patient feels better after liter of fluid. Thus she is appropriate for discharge with a prescription for Zofran a referral to Dr. Marie for evaluation of her transaminitis and the aforementioned Bromfed for upper respiratory tract symptoms <Raven Bill MD - Last Filed: 01/16/24 17:37> Vital Signs: 01/16/24 14:07 01/16/24 16:03 01/16/24 16:30 Temperature 98.2 F Temperature Source Oral Pulse Rate 80 70 Pulse Rate [Right] 91 H Respiratory Rate 16 Blood Pressure 86/55 L 97/45 L Blood Pressure [Right Arm] 97/47 L Blood Pressure Mean [Right Arm] 63 02 Sat by Pulse Oximetry 100 99 98 01/16/24 16:45 Temperature Temperature Source Pulse Rate 72 Pulse Rate [Right] Respiratory Rate Blood Pressure 87/45 L Blood Pressure [Right Arm] Blood Pressure Mean [Right Arm] 02 Sat by Pulse Oximetry 100 Lab Data Lab Results 01/16/24 14:15: SARS-CoV-2 (PCR) Not detected, Influenza A Untype (PCR) Not detected, Influenza Type B (PCR) Not detected 01/16/24 14:17: Group A Strep Rapid Negative 01/16/24 15:56: WBC 7.5, RBC 4.68, Hgb 14.7, Hct 42.1, MCV 89.9, MCH 31.5 H, MCHC 35.0, RDW 12.8, Plt Count 235, MPV 6.9 L, Neut % (Auto) 90.3 H, Lymph % (Auto) 6.2 L, Jack % (Auto) 2.0, Eos % (Auto) 0.9, Baso % (Auto) 0.6, Neut # (Auto) 6.7, Lymph # (Auto) 0.5 L, Jack # (Auto) 0.2, Eos # (Auto) 0.1, Baso # (Auto) 0.0, Total Counted 100, Neutrophils % (Manual) 75, Band Neutrophils % 8.0, Lymphocytes % (Manual) 12, Monocytes % (Manual) 3, Eosinophils % (Manual) 1, Basophils % (Manual) 1.0, Platelet Estimate Normal, Anisocytosis 1+, Microcytosis 1+, Sodium 137, Potassium 3.6, Chloride 99, Carbon Dioxide 27, Anion Gap 14.6, BUN 29 H, Creatinine 1.00, Estimated Creat Clear 91, Estimated GFR 61, Est GFR ( Amer) 73, Glucose 108 H, Calcium 9.4, Magnesium 1.8, Total Bilirubin 1.0, AST 145 H, ALT 107 H, Alkaline Phosphatase 127 H, Total Protein 7.7, Albumin 4.5, Globulin 3.2, Albumin/Globulin Ratio 1.4 Orders (Tests/Meds): ED MEDICATIONS Discontinued Medications Generic Name Dose Route Start Last Admin Trade Name Giancarlo PRN Reason Stop Dose Admin Acetaminophen 1,000 mg 01/16/24 14:38 01/16/24 14:44 Acetaminophen 500mg Tab PO 01/16/24 14:39 1,000 mg ONCE ONE Administration Sodium Chloride 1,000 mls @ 999 mls/hr 01/16/24 15:48 01/16/24 15:59 Sod Chlor 0.9% 1000ml Bag IV 01/16/24 16:48 999 mls/hr .Q1H1M ONE Administration Ibuprofen 800 mg 01/16/24 14:38 01/16/24 14:44 Ibuprofen 400 Mg Tablet PO 01/16/24 14:39 800 mg ONCE ONE Administration Ondansetron HCl 4 mg 01/16/24 15:48 01/16/24 15:59 Ondansetron 4mg/2ml Vial IV 01/16/24 15:49 4 mg ONCE ONE Administration ORDERS Category Date Time Status CBC w/Auto Diff [Complete Blood Count Auto Diff] Stat Lab 10/17/24 15:56 Completed CMP [Comprehensive Metabolic Panel] Stat Lab 01/16/24 15:56 Completed HIV (1&2) Antibody Rapid Stat Lab 01/16/24 15:56 Received Hep C Ab with Reflex to RNA Stat Lab 01/16/24 14:21 Received Magnesium Stat Lab 01/16/24 15:56 Completed Rapid PCR Covid and Flu A/B Stat Lab 01/16/24 14:15 Completed Rapid Strep Scrn Group A [Strep Scrn Group A (Rapid)] Lab 01/16/24 14:17 Completed Stat UA [Urinalysis and Microscopic] Stat Lab 01/16/24 15:49 Ordered Strep Screen Confirmation Stat Micro 01/16/24 14:17 Received Medical Decision Narrative: DiscIn summary patient is a 43-year-old female who presents to the emergency department for evaluation of upper respiratory tract infection. Patient is slightly hypotensive at 97/47 but heart rate of 91 respiratory rate is 16 satting at 100% on room air upon arrival, with a temperature of 98.2. Physical exam is remarkable for clear breath sounds erythematous posterior pharynx without evidence of exudate boggy congested nasal mucosa normal bilateral tympanic membranes no lymphadenopathy in the cervical chains. Differential diagnosis includes viral versus bacterial upper respiratory tract infection. Initial workup will be conducted with COVID flu and strep swabs. Initial interventions include Tylenol and ibuprofen. Initial workup reviewed by me and her swabs are all negative. Upon repeat evaluation had modest improvement after additional intervention. Given this patient is appropriate for discharge with prescription for Bromfed sent to her pharmacy. Vital signs patient was noted to be hypotensive but not tachycardic. Then she then admitted that she has been having nausea vomiting and feeling lightheaded when standing up. She has not taken her Adderall in 2 days or any of her medication in 2 days due to the nausea vomiting she says. Given that we have reopen her workup will order basic labs and IV fluids and reassess. Patient's labs are reassuring however she has transaminitis without hyperbilirubinemia. Upon reassessment at 1715 patient feels better after liter of fluid. Thus she is appropriate for discharge with a prescription for Zofran a referral to Dr. Marie for evaluation of her transaminitis and the aforementioned Bromfed for upper respiratory tract symptoms This is Dr. Bill I evaluated the patient multiple times given her hypotension. Patient states that her baseline blood pressure is typically 90s systolic. She was a little bit on the low side and has had some nausea vomiting diarrhea and after IV fluids she feels much better. She has a benign abdominal exam is mild elevation in her transaminases which are nonspecific and will follow-up outpatient. Overall she felt much better after IV fluid she has no clinical signs or symptoms of sepsis nor hypovolemic shock nor any type of hemorrhaging. We are aware of her blood pressure and this seems to be very near her baseline she clinically looks very well is good peripheral perfusion is mentating well and I am comfortable with her being discharged with her blood pressure the way that it is currently. She and her who is at the bedside are aware of our discussion and agreeable to come back with any type of worsening symptoms such as fevers chills etc. Critical Care <YUE Armstrong - Last Filed: 01/16/24 17:26> Critical Care Time Critical Care Time: No
[2024-01-16 14:43] LABS: Coronavirus 19, PCR Not Detected (NotDetected); Influenza A, PCR Not Detected (NotDetected); Influenza B, PCR Not Detected (NotDetected)
[2024-01-16] MEDS: IBUPROFEN 400 MG TABLET 800 MG PO (14:44)
[2024-01-16] MEDS: ACETAMINOPHEN 500MG TAB 1000 MG PO (14:44)
[2024-01-16 15:01] LABS: Strep Scrn Group A (Rapid) Negative (Negative)
[2024-01-16] MEDS: 0.9 % SODIUM CHLORIDE 1000ML 1,000 ML 999 ML IV (15:59)
[2024-01-16] MEDS: ONDANSETRON 4MG/2ML VIAL 4 MG IV (15:59)
[2024-01-16 16:03] VITALS: BP 86/55; PULSE 80; O2SAT 99
[2024-01-16 16:03] LABS: Basophils % 0.6 % (0.1-2.0); Eosinophils # 0.1 K/mm3 (0.0-0.4); Eosinophils % 0.9 % (0.1-12.0); Hematocrit 42.1 % (37.0-47.0); Hemoglobin 14.7 g/dL (12.2-16.2); Lymphocytes # 0.5 K/mm3 (0.7-4.5); Lymphocytes % 6.2 % (10-50); Mean Corpuscular Hemoglobin 31.5 pg (27.0-31.2); Mean Corpuscular Volume 89.9 fl (81-99); Mean Platelet Volume 6.9 fl (7.4-10.4); Monocytes # 0.2 K/mm3 (0.1-1.0); Neutrophils # 6.7 K/mm3 (1.8-7.8); Neutrophils % 90.3 % (37.0-80.0); Platelet Count 235 K/mm3 (142-424); Red Blood Count 4.68 M/mm3 (4.20-5.40); Red Cell Distribution Width 12.8 % (11.5-17.5); White Blood Count 7.5 K/mm3 (4.8-10.8)
[2024-01-16 16:05] LABS: MANUAL DIFFERENTIAL MANUAL DIFFERENTIAL (MANUAL DIFF)
[2024-01-16 16:08] LABS: Albumin Level 4.5 g/dl (3.5-5.0); Chloride 99 mmol/L (98-107); Sodium 137 mmol/L (136-145)
[2024-01-16 16:09] LABS: Potassium 3.6 mmoL/L (3.5-5.1)
[2024-01-16 16:11] LABS: Albumin/Globulin Ratio 1.4 (1.1-1.8); Anion Gap 14.6 mEq/L (5-15); Blood Urea Nitrogen 29 mg/dl (7-17); Carbon Dioxide 27 mmol/L (22.0-30.0); Creatinine Clearance Estimated 91 mL/min (50-200); Estimated Glomerular Filt Rate 61 ml/min (>60); GFR (African American) 73 ML/MIN (>60); Globulin 3.2 g/dL (1.3-3.2); Total Protein,Serum 7.7 g/dl (6.3-8.2)
[2024-01-16 16:12] LABS: Alanine Aminotransferase 107 U/L (12-78); Alkaline Phosphatase 127 U/L (38-126); Aspartate Amino Transferase 145 U/L (14-36); Calcium 9.4 mg/dl (8.4-10.2); Glucose 108 mg/dl (74-100); Magnesium 1.8 mg/dl (1.6-2.3)
--- NOTE | 2024-01-16 16:17 | PC.NURSE ---
Rounded on pt. Pt resting in bed. at BS. No other needs voiced.
[2024-01-16 16:30] VITALS: BP 97/45; PULSE 70; O2SAT 98
[2024-01-16 16:45] VITALS: BP 87/45; PULSE 72; O2SAT 100
[2024-01-16 17:05] LABS: Anisocytosis 1+; Eosinophils % 1 % (0-3); Lymphocytes % 12 % (10-50); Microcytosis 1+; Monocytes % 3 % (2-9); Neutrophils % 75 % (42-76); Platelet Estimate Normal; Total Cells Counted 100
--- NOTE | 2024-01-16 17:19 | PC.NURSE ---
DR VELAZQUEZ AT BEDSIDE TO EVALUATE PT
[2024-01-16 17:39] VITALS: BP 83/51; PULSE 91; RESP 16; TEMP 36.9; O2SAT 99
[2024-01-16 18:52] LABS: HIV (1&2) Antibody Rapid NONREACTIVE (NONREACTIVE)
[2024-01-18 08:28] LABS: HCV Ab Non Reactive (Non Reactive)
== END 2024-01-16 17:40 | disposition home or self-care (01) ==
PROVIDERS: Physician Assistant; Emergency Provider Student in an Organized Health Care Education/Training Program; PCP Physician Assistant
DX: R74.01 Elevation of levels of liver transaminase levels (principal); J06.9 Acute upper respiratory infection, unspecified; R11.2 Nausea with vomiting, unspecified; R19.7 Diarrhea, unspecified; R50.9 Fever, unspecified; R05.9 Cough, unspecified; R53.81 Other malaise; R51.9 Headache, unspecified; M79.10 Myalgia, unspecified site; J02.9 Acute pharyngitis, unspecified; R06.02 Shortness of breath; R04.2 Hemoptysis; K92.1 Melena
CPT/HCPCS: 80053; 83735; 85007; 85025; 86803; 87389; 87430; 87636; 96361; 96374; 99283; J2405; J7030

== ENCOUNTER 2024-01-18 00:49 | Emergency (ER) | payer BC, SELFPAY ==
--- NOTE | 2024-01-18 | CT_ITS ---
PROCEDURE INFORMATION: Exam: CT Head Without Contrast Exam date and time: 01/18/2024 2:19 AM Age: 43 years old Clinical indication: Pain; Headache TECHNIQUE: Imaging protocol: Computed tomography of the head without contrast. Radiation optimization: All CT scans at this facility use at least one of these dose optimization techniques: automated exposure control; mA and/or kV adjustment per patient size (includes targeted exams where dose is matched to clinical indication); or iterative reconstruction. COMPARISON: CT HEAD/BRAIN WO CON 01/18/2024 2:19 AM FINDINGS: Brain: Normal. No hemorrhage. Unremarkable white matter. No mass effect. Cerebral ventricles: No ventriculomegaly. Paranasal sinuses: Visualized sinuses are unremarkable. No fluid levels. Mastoid air cells: Visualized mastoid air cells are well aerated. Bones: Unremarkable. No acute fracture. Soft tissues: Unremarkable. IMPRESSION: No acute intracranial abnormality.
[2024-01-18 00:50] VITALS: BP 105/58; PULSE 123; RESP 20; TEMP 38.7; O2SAT 99; BMI 34.2
--- NOTE | 2024-01-18 00:52 | ED_ITS ---
Discharge Plan Disposition Patient Disposition: Xfer Other Chief Complaint: Nausea/Vomiting/Diarrhea Prescriptions Prescriptions: No Action ergocalciferol (vitamin D2) 1,250 mcg (50,000 unit) capsule See Rx Instructions .Route .COMPLEX Qty: 14 3RF Rx Instructions: take 1 capsule by mouth every week hydrochlorothiazide 12.5 mg capsule 12.5 mg PO DAILY Qty: 90 3RF metoprolol succinate 50 mg tablet extended release 24 hr 50 mg PO DAILY Qty: 90 3RF atorvastatin 10 mg tablet 20 mg PO DAILY 30 Days Qty: 60 0RF losartan 50 mg tablet 50 mg PO DAILY Qty: 90 3RF famotidine 20 mg tablet PO Patient Comments: TAKE 1 TABLET BY MOUTH ONCE DAILY AT BEDTIME cetirizine [Zyrtec] 10 mg tablet 10 mg PO DAILY Qty: 10 0RF omeprazole 40 mg capsule,delayed release(DR/EC) 40 mg PO DAILY Patient Comments: TAKE 1 CAPSULE BY MOUTH ONCE DAILY FOR GERD venlafaxine 75 mg capsule,extended release 24hr See Rx Instructions .ROUTE .COMPLEX Qty: 90 3RF Dose Instruction: TAKE 1 CAPSULE BY MOUTH ONCE DAILY FOR MOOD Rx Instructions: TAKE 1 CAPSULE BY MOUTH ONCE DAILY FOR MOOD buspirone 15 mg tablet See Rx Instructions .ROUTE .COMPLEX Qty: 180 0RF Dose Instruction: TAKE 1 TABLET BY MOUTH TWICE DAILY FOR DEPRESSION Rx Instructions: TAKE 1 TABLET BY MOUTH TWICE DAILY FOR DEPRESSION levothyroxine 25 mcg tablet See Rx Instructions .ROUTE .COMPLEX Qty: 90 0RF Dose Instruction: TAKE 1 TABLET BY MOUTH ONCE DAILY FOR THYROID Rx Instructions: TAKE 1 TABLET BY MOUTH ONCE DAILY FOR THYROID diclofenac sodium 75 mg tablet,delayed release (DR/EC) See Rx Instructions .ROUTE .COMPLEX Qty: 60 0RF Dose Instruction: Take 1 tablet by mouth twice daily Rx Instructions: Take 1 tablet by mouth twice daily cyanocobalamin (vitamin B-12) 1,000 mcg/mL solution See Rx Instructions .ROUTE .COMPLEX Qty: 4 2RF Dose Instruction: INJECT 1 ML (CC) INTRAMUSCULARLY ONCE A WEEK FOR 4 WEEKS, THEN INJECT 1ML MONTHLY Rx Instructions: 1 ml monthly dextroamphetamine-amphetamine [Adderall XR] 25 mg capsule,extended release 24hr 25 mg PO DAILY Qty: 30 0RF [id number] [Bromfed DM] 2-30-10 mg/5 mL syrup 5 ml PO Q4H PRN (Reason: sinus symptoms) Qty: 118 0RF ondansetron 4 mg tablet,disintegrating 4 mg PO Q6H PRN (Reason: nausea and vomiting) Qty: 10 0RF Referrals Follow up/Referrals: Franki Solis DO [Primary Care Provider] - See instructions Clinical Impressions Clinical Impression: Sepsis, Transaminitis, Acute hyponatremia, Thrombocytopenia, Headache, Nausea & vomiting Stand Alone Forms Stand Alone Forms: Transfer Record - ED Instructions Patient Instructions: DI for Diarrhea and Traveler's Diarrhea -- Adult, DI for Diarrhea and Traveler's Diarrhea -- Child, DI for Nausea -- Adult, DI for Nausea -- Child Print Language Print Language: Nigerien Discharge ED Provider: [facility] HPI General Chief complaint: Nausea/Vomiting/Diarrhea Stated complaint: chills, vomiting, headache Time Seen by Provider: 01/18/24 00:52 History of Present Illness HPI narrative: 43-year-old female presents for multiple complaints. She reports that her symptoms started on Saturday night with chills and a headache. On Saturday these symptoms continued and got worse. She reports her headache is frontal in nature, bilateral. She denies any vision changes focal numbness weakness, denies pain with range of motion of the neck. She began having nausea and vomiting yesterday and has not been able to keep anything down for the last 2 days. She was seen here yesterday in the ER and was worked up with basic labs which showed mild transaminitis. She was discharged with instructions to follow-up. Her symptoms have continued to worsen and so she represents now. She denies any chest pain or abdominal pain. She is now febrile. She denies any recent travel, medication changes, tick exposures etc. Related Data Home Medications ?Medication ?Instructions ?Recorded ?Confirmed famotidine 20 mg tablet mg PO 08/22/23 12/27/23 omeprazole 40 mg capsule,delayed 40 mg PO DAILY 12/27/23 12/27/23 release Previous Rx's ?Medication ?Instructions ?Recorded ergocalciferol (vitamin D2) 1,250 See Rx Instructions .Route 02/27/21 mcg (50,000 unit) capsule .COMPLEX Supplement #14 caps venlafaxine 75 mg capsule,extended See Rx Instructions .Route 11/20/21 release 24 hr .COMPLEX #90 caps cetirizine 10 mg tablet (Zyrtec) 10 mg PO DAILY #10 tabs 08/30/22 buspirone 15 mg tablet See Rx Instructions .Route 09/18/22 .COMPLEX #180 tabs levothyroxine 25 mcg tablet See Rx Instructions .Route 09/18/22 .COMPLEX #90 tabs hydrochlorothiazide 12.5 mg capsule 12.5 mg PO DAILY #90 caps 10/16/22 metoprolol succinate 50 mg 50 mg PO DAILY blood pressure #90 10/16/22 tablet,extended release 24 hr tabs atorvastatin 10 mg tablet 20 mg (2 x 10 mg) PO DAILY 30 days 12/26/22 #60 tabs losartan 50 mg tablet 50 mg PO DAILY #90 tabs 12/26/22 diclofenac sodium 75 mg See Rx Instructions .Route 01/09/23 tablet,delayed release .COMPLEX #60 tabs cyanocobalamin (vitamin B-12) See Rx Instructions .Route 01/31/23 1,000 mcg/mL injection solution .COMPLEX #4 mL dextroamphetamine-amphetamine ER 25 mg PO DAILY #30 caps 11/07/23 25 mg 24hr capsule,extend release (Adderall XR) vqipkdxleykwgsc-bhnjgvrslrmjroq-QV 5 ml PO Q4H PRN sinus symptoms 01/16/24 2 mg-30 mg-10 mg/5 mL oral syrup #118 mL (Bromfed DM) ondansetron 4 mg disintegrating 4 mg PO Q6H PRN nausea and 01/16/24 tablet vomiting #10 tabs Allergies Allergy/AdvReac Type Severity Reaction Status Date / Time lisinopril Allergy Verified 12/27/23 08:57 [facility] Disclaimer: The information contained in this section may have been updated after the patient was seen, as this information can be updated by other users. Medical History B12 deficiency B12 levels were normal drawn at the last visit. Osteoarthritis BMI 45.0-49.9, adult Obesity, morbid, BMI 50 or higher Gastroesophageal reflux disease Family history of heart disease Daytime somnolence Snoring Swelling Morbid obesity Dyspnea Chest pain Abnormal weight BMI 50.0-59.9, adult Hyperlipidemia I have suggested to Krystle that she go on omega-3 for 6 fatty acids. She is to talk with her pharmacist about the best option. Vitamin D deficiency Vitamin D was normal. Follow Hypertension Today is 118/66. Her blood pressure appears well-controlled on the current medical plan. Low back pain with sciatica UTI (urinary tract infection) Depression Encounter for smoking cessation counseling Sinusitis Surgical History Bariatric surgery status Family History Other No significant family history Social History Smoking Status: Unknown if ever smoked second hand exposure: No alcohol intake: never substance use type: denies use current occupational status: disabled Travel in the last 8 weeks: None household members: spouse and children housing: house current occupational exposures/hazards: No caffeine: Yes Other Medical History Have you received the Flu Vaccine for this season: No Have you received the Pneumonia Vaccine: No ROS Obtained: Yes All systems reviewed & no additional complaints except as documented Physical Exam General General appearance: alert and other (Uncomfortable appearing) Comment: Uncomfortable appearing, diaphoretic Head Head exam: atraumatic and normocephalic Eye Eye exam: Present normal appearance, PERRL and EOMI ENT ENT exam: Present normal oropharynx and normal external ear exam Neck Neck exam: Present normal inspection and full ROM Chest Chest inspection: Present normal inspection and symmetric chest wall rise; Absent tenderness Respiratory Respiratory exam: Present normal lung sounds bilaterally; Absent respiratory distress Cardiovascular Cardiovascular exam: Present normal rhythm and tachycardia Abdominal Exam Abdominal exam: Present soft; Absent distention, tenderness or guarding Extremities Exam Extremities exam: Present normal inspection; Absent edema or joint swelling Back Exam Back exam: Present normal inspection; Absent tenderness Neurological Exam Neurological exam: Present alert and oriented X3; Absent motor sensory deficit Psychiatric Psychiatric exam: Present normal affect and normal mood Skin Skin exam: Present warm, dry and normal color Lymphatic Lymphatic Findings: no adenopathy Medical Decision Making Medical Records Medical records reviewed: Yes I reviewed the patient's medical records. Screening: Per USPSTF and CDC recommendations, given the prevalence of disease in our region, it is our hospital?s policy to screen for HIV and viral Hepatitis for all patients aged 18 and over and those with ongoing risk factors. Valeriano Inquiry Pt receiving controlled substance: No Valeriano was queried for this patient: No Vital Signs: 01/18/24 00:50 01/18/24 01:30 01/18/24 02:00 Temperature 101.6 F H Temperature Source Oral Pulse Rate 112 H 113 H Pulse Rate [Left] 123 H Respiratory Rate 20 Blood Pressure 104/63 L 96/51 L Blood Pressure [Right Arm] 105/58 L Blood Pressure Mean 78 66 Blood Pressure Mean [Right Arm] 73 02 Sat by Pulse Oximetry 99 92 L 95 Oxygen Delivery Method Room Air 01/18/24 02:57 01/18/24 02:58 Temperature Temperature Source Pulse Rate 99 H 95 H Pulse Rate [Left] Respiratory Rate Blood Pressure 88/45 L 91/50 L Blood Pressure [Right Arm] Blood Pressure Mean 59 60 Blood Pressure Mean [Right Arm] 02 Sat by Pulse Oximetry 90 L 97 Oxygen Delivery Method Lab Data Lab results reviewed: Yes I reviewed the patient's lab results. Lab Results 01/18/24 00:04: WBC 4.4 L D, RBC 4.57, Hgb 14.5, Hct 39.6, MCV 86.6, MCH 31.7 H, MCHC 36.6 H, RDW 13.0, Plt Count 99 L D, MPV 7.6, Neut % (Auto) 87.4 H, Lymph % (Auto) 7.0 L, Angelina % (Auto) 4.8, Eos % (Auto) 0.1, Baso % (Auto) 0.8, Neut # (Auto) 3.8, Lymph # (Auto) 0.3 L, Angelina # (Auto) 0.2, Eos # (Auto) 0.0, Baso # (Auto) 0.0, Total Counted 100, Neutrophils % (Manual) 89 H, Lymphocytes % (Manual) 4 L, Atypical Lymphs % 3.0, Monocytes % (Manual) 4, Platelet Estimate Marked decrease, RBC Morphology Normal, Sodium 129 L, Potassium 3.7, Chloride 98, Carbon Dioxide 24, Anion Gap 10.7, BUN 17 D, Creatinine 0.70 D, Estimated Creat Clear 130, Estimated GFR 91, Est GFR ( Amer) 111 D, Glucose 111 H, Calcium 9.1, Magnesium 1.4 L D, Total Bilirubin 1.9 H, AST 335 H* D, ALT 206 H D , Alkaline Phosphatase 419 H, Total Protein 6.7, Albumin 3.7 D, Globulin 3.0, Albumin/Globulin Ratio 1.2, Lipase 163, Serum HCG, Qual Negative, Monoscreen Negative 01/18/24 01:21: Chlamy pneumoniae PCR Not detected, Adenovirus (PCR) Not detected, B. pertussis DNA (PCR) Not detected, Coronavirus OC43 (PCR) Not detected, Coronavirus HKU1 (PCR) Not detected, Coronavirus 229E (PCR) Not detected, SARS-CoV-2 (PCR) Not detected, Coronavirus NL63 (PCR) Not detected, Human Metapneumovir PCR Not detected, Influenza A (H1) PCR Not detected, Influ A (H1N1/09) PCR Not detected, Influenza A (H3) PCR Not detected, Influenza Type A (PCR) Not detected, Influenza Type B (PCR) Not detected, M. pneumoniae (PCR) Not detected, Parainfluenza 1 (PCR) Not detected, Parainfluenza 2 (PCR) Not detected, Parainfluenza 3 (PCR) Not detected, Parainfluenza 4 (PCR) Not detected, RSV (PCR) Not detected, Entero/Rhino (PCR) Not detected 01/18/24 02:00: PT 12.9 H, INR 1.17 H, APTT 42.4 H, D-Dimer > 8.10 H 01/18/24 02:58: Urine Color Dark yellow, Urine Appearance Cloudy, Urine pH 6.0, Ur Specific [place] 1.015, Urine Protein 1+ A, Urine Glucose (UA) Negative, Urine Ketones Negative, Urine Blood Trace-i, Urine Nitrate Positive, Urine Bilirubin 1+ A, Urine Urobilinogen >=8.0, Ur Leukocyte Esterase Negative, Urine RBC Occasional, Urine WBC 3-5, Ur Squamous Epith Cells 3-5, Urine Bacteria 1+ 01/18/24 00:04 01/18/24 00:04 Orders (Tests/Meds): ED MEDICATIONS Generic Name Dose Route Start Last Admin Trade Name Freq PRN Reason Stop Dose Admin Lactated Ringer's 1,000 mls @ 999 mls/hr 01/18/24 03:15 01/18/24 03:09 Lactated Ringer's 1000 Ml Bag IV 01/18/24 04:15 999 mls/hr .Q1H1M SELIN Administration Vancomycin/PEG/NADA/Lysine/Water 1.5 gm in 300 mls @ 150 mls/hr 01/18/24 03:30 01/18/24 03:09 Vancomycin 1.5gm/300ml (Peg) Premix IV 01/18/24 05:29 150 mls/hr ONCE ONE Administration Miscellaneous 1 each 01/18/24 03:00 01/18/24 03:04 Vancomycin Consult Request NOTAPPLIC 02/17/24 02:59 1 each CONSULT PHARMACY SELIN Administration Sodium Chloride 10 ml 01/18/24 02:45 01/18/24 02:51 Sodium Chloride 0.9% 10ml Syr (Rad Only) IV 02/17/24 02:44 10 ml NEEDED PRN Administration Maintain IV Site Discontinued Medications Generic Name Dose Route Start Last Admin Trade Name Freq PRN Reason Stop Dose Admin Acetaminophen 1,000 mg 01/18/24 01:14 01/18/24 01:28 Acetaminophen 1,000mg/100ml Vial IV 01/18/24 01:15 1,000 mg ONCE ONE Administration Diphenhydramine HCl 25 mg 01/18/24 01:20 01/18/24 01:29 Diphenhydramine 50mg/Ml Vial IV 01/18/24 01:21 25 mg ONCE ONE Administration Lactated Ringer's 1,000 mls @ 999 mls/hr 01/18/24 01:15 01/18/24 01:28 Lactated Ringer's 1000 Ml Bag IV 01/18/24 02:15 999 mls/hr .Q1H1M SELIN Administration Magnesium Sulfate 2 gm in 50 mls @ 50 mls/hr 01/18/24 01:43 01/18/24 01:51 Magnesium Sulfate 2gm/50ml Premix IV 01/18/24 02:42 50 mls/hr ONCE ONE Administration Piperacillin Sod/Tazobactam 100 mls @ 200 mls/hr 01/18/24 03:00 01/18/24 03:22 Sod 4.5 gm/ Sodium Chloride IV 01/18/24 03:29 Not Given ONCE ONE Piperacillin Sod/Tazobactam 100 mls @ 200 mls/hr 01/18/24 03:15 01/18/24 03:09 Sod 4.5 gm/ Sodium Chloride IV 01/18/24 03:44 200 mls/hr ONCE ONE Administration Iopamidol 155 ml 01/18/24 02:45 01/18/24 02:51 Iopamidol-370 (76%);100ml Bottle IV 01/18/24 02:46 155 ml ONCE ONE Administration Ketorolac Tromethamine 30 mg 01/18/24 01:14 01/18/24 01:28 Ketorolac 30mg/Ml Vial IV 01/18/24 01:15 30 mg ONCE ONE Administration Prochlorperazine Edisylate 10 mg 01/18/24 01:14 01/18/24 01:29 Prochlorperazine 10mg/2ml Vial IV 01/18/24 01:15 10 mg ONCE ONE Administration Sodium Chloride 100 ml 01/18/24 02:45 01/18/24 02:51 0.9 % Sodium Chloride 50 Ml Vial IV 01/18/24 02:46 100 ml ONCE ONE Administration ORDERS Category Date Time Status CT Venogram head Stat Cat Scan 01/18/24 01:[address] abdomen pelvis w con Stat Cat Scan 01/18/24 02:[address] angio chest PE protocol Stat Cat Scan 01/18/24 01:[address] head/brain wo con Routine Cat Scan 01/18/24 Taken CXR --portable [XR chest portable] Stat Exams 01/18/24 01:14 Taken CBC w/Auto Diff [Complete Blood Count Auto Diff] Stat Lab 01/18/24 00:04 Completed CMP [Comprehensive Metabolic Panel] Stat Lab 01/18/24 00:04 Completed D-Dimer Stat Lab 01/18/24 02:00 Completed Fibrinogen Stat Lab 01/18/24 02:00 Results Full Resp Panel w/COVID (H) Routine Lab 01/18/24 01:21 Completed HCG Qualitative, Serum Stat Lab 01/18/24 00:04 Completed Hepatitis Panel Stat Lab 01/18/24 00:04 Received INR [Prothrombin Time INR] Stat Lab 01/18/24 02:00 Results Lipase Stat Lab 01/18/24 00:04 Completed Magnesium Stat Lab 01/18/24 00:04 Completed Monoscreen (Rapid) Stat Lab 01/18/24 00:04 Completed PTT [Activated Partial Thrombo Time] Stat Lab 01/18/24 02:00 Results Peripheral Smear Review Stat Lab 01/18/24 00:04 Received UA [Urinalysis and Microscopic] Stat Lab 01/18/24 02:58 Completed Blood Culture Stat Micro 01/18/24 02:15 Received Medical Decision Narrative: 43-year-old female without significant past medical history presents for fever, headache, nausea vomiting she was seen here yesterday for similar symptoms and her workup showed only mild transaminitis. Her symptoms have been worsening.. History was obtained via interactive discussion with patient, family, chart review. On arrival, patient is febrile, tachycardic, uncomfortable, moving all extremities spontaneously. Full physical exam performed and significant for no focal neurologic deficits on exam, no petechiae or mucosal bleeding, no abdominal tenderness, clear lungs bilaterally, Patient was given 1 L IV fluid bolus, headache cocktail, vancomycin and Zosyn for broad-spectrum antibiotic coverage and symptomatic management and correction of underlying abnormalities. Workup initiated including CBC CMP PT/INR D-dimer fibrinogen Monospot viral panel acute hep panel mag blood cultures peripheral smear urinalysis CTV, CT head, CT PE, CT abdomen and pelvis On re-evaluation, patient reports resolution in headache. She became mildly hypotensive and was given additional 1 L IV fluid bolus. Laboratory workup independently interpreted by me and significant for markedly worsened LFTs with bilirubin 1.9, up from 1, LFTs in the 300s and 400s up from the 100s yesterday. Hyponatremia with sodium 129, down from 137 yesterday. PT and PTT are mildly prolonged, D-dimer greater than 8.1. Fibrinogen not yet back. CBC shows new thrombocytopenia, platelet count 99 down from 235 yesterday. Mild hypomagnesemia, replaced IV with 2 g. Full viral respiratory panel negative. Urinalysis shows 1+ bacteria, 3-5 WBCs and positive nitrates (could be false positive nitrates given positive bilirubin). Imaging independently interpreted by me and significant for no significant intracranial abnormality, specifically no venous sinus thrombosis, no obvious pathology within the liver, no obvious PE. Formal radiology results not yet back. Given patient history, exam and workup, patient's presentation most likely represents sepsis of unknown etiology with possible developing DIC. She has numerous concerning laboratory markers that are acutely worsening. Differential is broad and includes viral/bacterial etiologies, ITP, TTP, tick borne illness, etc. she may have a UTI but I do not believe that it is the underlying source of her illness. I spoke with the [facility] transfer center and Dr. Tadeo who accepted the patient in transfer for further evaluation and management. Procedures Risk/Benefits of Procedure(s) Were Explained: Yes Critical Care Critical Care Time Critical Care Time: No
--- NOTE | 2024-01-18 01:14 | XR_ITS ---
PROCEDURE INFORMATION: Exam: XR Chest Exam date and time: 01/18/2024 1:20 AM Age: 43 years old Clinical indication: Fever and shortness of breath; Additional info: Fever SOB TECHNIQUE: Imaging protocol: Radiologic exam of the chest. Views: 1 view. COMPARISON: CR XR CHEST 2V 02/22/2021 2:06 PM FINDINGS: Lungs: Unremarkable. No consolidation. Pleural spaces: Unremarkable. No pleural effusion. No pneumothorax. Heart/Mediastinum: Unremarkable. No cardiomegaly. Bones/joints: Unremarkable. IMPRESSION: No acute findings.
[2024-01-18 01:28] LABS: Adenovirus,PCR Not Detected (NotDetected); Bordetella Pertussis Not Detected (NotDetected); Chlamydophila Pneumoniae, PCR Not Detected (NotDetected); Coronavirus 19, PCR Not Detected (NotDetected); Coronavirus 229E Not Detected (NotDetected); Coronavirus NL63 Not Detected (NotDetected); Coronavirus OC43 Not Detected (NotDetected); Coronovirus HKU1,PCR Not Detected (NotDetected); Human Metapneumovirus Not Detected (NotDetected); Influenza A, PCR Not Detected (NotDetected); Influenza AH1, 2009 Not Detected (NotDetected); Influenza AH1, PCR Not Detected (NotDetected); Influenza AH3,PCR Not Detected (NotDetected); Influenza B, PCR Not Detected (NotDetected); Mycoplasma Pneumoniae, PCR Not Detected (NotDetected); Parainfluenza 1, PCR Not Detected (NotDetected); Parainfluenza 2, PCR Not Detected (NotDetected); Parainfluenza 3, PCR Not Detected (NotDetected); Parainfluenza 4, PCR Not Detected (NotDetected); Respiratory Syncytial Virus Not Detected (NotDetected); Rhinovirus/Enterovirus Not Detected (NotDetected)
[2024-01-18] MEDS: LACTATED RINGERS 1000ML 1,000 ML 999 ML IV ×2 (01:28→03:09)
[2024-01-18] MEDS: ACETAMINOPHEN 1,000MG/100ML VIAL 1000 MG IV (01:28)
[2024-01-18] MEDS: KETOROLAC 30MG/ML VIAL 30 MG IV (01:28)
[2024-01-18] MEDS: diphenhydrAMINE 50MG/ML VIAL 25 MG IV (01:29)
[2024-01-18] MEDS: PROCHLORPERAZINE 10MG/2ML VIAL 10 MG IV (01:29)
[2024-01-18 01:30] VITALS: BP 104/63; PULSE 112; O2SAT 92
[2024-01-18 01:37] LABS: HCG Qualitative, Serum Negative (Negative)
[2024-01-18 01:39] LABS: Alanine Aminotransferase 206 U/L (12-78); Albumin Level 3.7 g/dl (3.5-5.0); Albumin/Globulin Ratio 1.2 (1.1-1.8); Alkaline Phosphatase 419 U/L (38-126); Anion Gap 10.7 mEq/L (5-15); Aspartate Amino Transferase 335 U/L (14-36); Bilirubin,Total 1.9 mg/dl (0.2-1.3); Blood Urea Nitrogen 17 mg/dl (7-17); Calcium 9.1 mg/dl (8.4-10.2); Carbon Dioxide 24 mmol/L (22.0-30.0); Chloride 98 mmol/L (98-107); Creatinine Clearance Estimated 130 mL/min (50-200); Estimated Glomerular Filt Rate 91 ml/min (>60); GFR (African American) 111 ML/MIN (>60); Glucose 111 mg/dl (74-100); Lipase 163 U/L (23-300); Magnesium 1.4 mg/dl (1.6-2.3); Potassium 3.7 mmoL/L (3.5-5.1); Sodium 129 mmol/L (136-145); Total Protein,Serum 6.7 g/dl (6.3-8.2)
[2024-01-18 01:41] LABS: Monoscreen (Rapid) Negative (Negative)
--- NOTE | 2024-01-18 01:45 | CT_ITS ---
PROCEDURE INFORMATION: Exam: CTA Head With Contrast, Venography Exam date and time: 01/18/2024 2:35 AM Age: 43 years old Clinical indication: Pain; Headache TECHNIQUE: Imaging protocol: Computed tomography angiography of the head with contrast. Exam focused on the veins. 3D rendering (Not supervised by radiologist): MIP and/or 3D reconstructed images were created by the technologist. Radiation optimization: All CT scans at this facility use at least one of these dose optimization techniques: automated exposure control; mA and/or kV adjustment per patient size (includes targeted exams where dose is matched to clinical indication); or iterative reconstruction. Contrast material: ISOUVE 370; Contrast volume: 80 ml; Contrast route: INTRAVENOUS (IV); COMPARISON: CT HEAD/BRAIN WO CON 01/18/2024 2:19 AM FINDINGS: Superior sagittal sinus: Patent. Straight sinus: Patent. Transverse sinuses: Patent. Sigmoid sinuses: Patent. Internal jugular veins: Limited visualized internal jugular veins are patent. Veins: No evidence of venous sinus thrombosis. POSTERIOR CIRCULATION: Right vertebral artery: Hypoplastic right vertebral artery. Other vasculature: Suboptimal arterial opacification Brain: No definite mass, mass effect, or midline shift. Cerebral ventricles: No ventriculomegaly. Soft tissues: Unremarkable. IMPRESSION: 1. No evidence of venous sinus thrombosis. 2. Negative exam.
--- NOTE | 2024-01-18 01:49 | CT_ITS ---
PROCEDURE INFORMATION: Exam: CTA Chest With Contrast Exam date and time: 01/18/2024 2:38 AM Age: 43 years old Clinical indication: Shortness of breath and other: Tachycardia; Additional info: SOA, tachycardia TECHNIQUE: Imaging protocol: Computed tomographic angiography of the chest with contrast. Exam focused on the arteries. 3D rendering (Not supervised by radiologist): MIP and/or 3D reconstructed images were created by the technologist. Radiation optimization: All CT scans at this facility use at least one of these dose optimization techniques: automated exposure control; mA and/or kV adjustment per patient size (includes targeted exams where dose is matched to clinical indication); or iterative reconstruction. Contrast material: ISOUVE 370; Contrast volume: 75 ml; Contrast route: INTRAVENOUS (IV); COMPARISON: CR XR CHEST PORTABLE 01/18/2024 1:20 AM FINDINGS: Pulmonary arteries: Normal. No pulmonary emboli. Aorta: Unremarkable. No aortic aneurysm. No aortic dissection. Lungs: Unremarkable. No consolidation. No masses. Pleural spaces: Unremarkable. No pneumothorax. No pleural effusion. Heart: No coronary calcification is noted. . No cardiomegaly. No pericardial effusion. Lymph nodes: Unremarkable. No enlarged lymph nodes. Bones/joints: Unremarkable. No acute fracture. Soft tissues: Unremarkable. IMPRESSION: No evidence of pulmonary embolus or other acute process.
[2024-01-18] MEDS: MAGNESIUM SULFATE IN WATER 2 GM/50 ML PIGGYBACK IV (01:51)
[2024-01-18 01:57] LABS: Basophils % 0.8 % (0.1-2.0); Eosinophils % 0.1 % (0.1-12.0); Hematocrit 39.6 % (37.0-47.0); Hemoglobin 14.5 g/dL (12.2-16.2); Lymphocytes # 0.3 K/mm3 (0.7-4.5); Mean Corpuscular HGB Conc 36.6 g/dL (31.8-35.4); Mean Corpuscular Hemoglobin 31.7 pg (27.0-31.2); Mean Corpuscular Volume 86.6 fl (81-99); Mean Platelet Volume 7.6 fl (7.4-10.4); Monocytes # 0.2 K/mm3 (0.1-1.0); Monocytes % 4.8 % (1.7-9.3); Neutrophils # 3.8 K/mm3 (1.8-7.8); Neutrophils % 87.4 % (37.0-80.0); Platelet Count 99 K/mm3 (142-424); Red Blood Count 4.57 M/mm3 (4.20-5.40); White Blood Count 4.4 K/mm3 (4.8-10.8)
[2024-01-18 02:00] VITALS: BP 96/51; PULSE 113; O2SAT 95
[2024-01-18 02:06] LABS: MANUAL DIFFERENTIAL MANUAL DIFFERENTIAL (MANUAL DIFF)
--- NOTE | 2024-01-18 02:17 | PC.NURSE ---
2 sets of blood cultures collected and sent to lab
[2024-01-18 02:27] LABS: D-Dimer > 8.10 ug/mL (0.0-0.5)
[2024-01-18] MEDS: IOPAMIDOL-370 (76%);100ML BOTTLE 155 ML IV (02:51)
[2024-01-18] MEDS: SODIUM CHLORIDE 0.9% 10ML SYR (RAD ONLY) 10 ML IV (02:51)
[2024-01-18] MEDS: 0.9 % SODIUM CHLORIDE 50 ML VIAL 100 ML IV (02:51)
--- NOTE | 2024-01-18 02:51 | CT_ITS ---
PROCEDURE INFORMATION: Exam: CT Abdomen And Pelvis With Contrast Exam date and time: 01/18/2024 2:38 AM Age: 43 years old Clinical indication: Abnormal findings; Abnormal lab test; Elevated liver enzymes; Fever; Additional info: Fever unknown source, elevated lfts TECHNIQUE: Imaging protocol: Computed tomography of the abdomen and pelvis with contrast. 3D rendering (Not supervised by radiologist): MIP and/or 3D reconstructed images were created by the technologist. Radiation optimization: All CT scans at this facility use at least one of these dose optimization techniques: automated exposure control; mA and/or kV adjustment per patient size (includes targeted exams where dose is matched to clinical indication); or iterative reconstruction. Contrast material: ISOVUE; Contrast volume: 75 ml; Contrast route: IV; COMPARISON: CT ABDOMEN PELVIS W CON 01/20/2020 3:04 AM FINDINGS: Liver: The liver is low in density. Gallbladder and biliary ducts: Normal. No calcified stones. No ductal dilation. Pancreas: Normal. No ductal dilation. Spleen: Normal. No splenomegaly. Adrenal glands: Normal. No mass. Kidneys and ureters: Normal. No hydronephrosis. Stomach and bowel: Prior gastric surgery. Appendix: No evidence of appendicitis. Intraperitoneal space: Unremarkable. No free air. No significant fluid collection. Vasculature: Unremarkable. No abdominal aortic aneurysm. Lymph nodes: Unremarkable. No enlarged lymph nodes. Urinary bladder: Unremarkable as visualized. Reproductive: Unremarkable as visualized. Bones/joints: Unremarkable. No acute fracture. Soft tissues: Unremarkable. IMPRESSION: 1. No acute process to explain the patient's fever. 2. Diffuse hepatic steatosis. 3. Prior gastric surgery.
[2024-01-18 02:57] VITALS: BP 88/45; PULSE 99; O2SAT 90
[2024-01-18 02:58] VITALS: BP 91/50; PULSE 95; O2SAT 97
[2024-01-18 03:01] LABS: Microscopic, Urine URINE MICROSCOPIC (MICROSCOPIC)
[2024-01-18 03:02] LABS: Blood, Urine TRACE-I (Negative); Glucose,Urine (UA) Negative (Negative); Ketones,Urine Negative (Negative); Leukocyte Esterase,Urine Negative (Negative); Nitrate,Urine POSITIVE (Negative); Protein,Urine 1+ (Negative); Specific Gravity, Urine 1.015 (1.005-1.030); Urobilinogen,Urine >=8.0 EU/dl (0.2)
[2024-01-18 03:03] LABS: Appearance,Urine Cloudy (Clear); Color,Urine Dark Yellow (Yellow)
[2024-01-18] MEDS: VANCOMYCIN CONSULT REQUEST 1 EACH NOTAPPLIC (03:04)
--- NOTE | 2024-01-18 03:04 | PC.NURSE ---
Spoke with Rashad peacock [facility] to confirm Zosyn and Vancomycin dosing for this patient
[2024-01-18 03:06] LABS: Bilirubin,Urine 1+ (Negative)
[2024-01-18] MEDS: VANCOMYCIN/WATER FOR INJ (PEG) 1.5 GM/300 ML PIGGYBACK IV (03:09)
[2024-01-18] MEDS: PIPERACILLIN/TAZO 4.5 GM in 0.9 % SODIUM CHLORIDE 100 ML IV (03:09)
[2024-01-18 03:18] LABS: Bacteria,Urine 1+ /lpf; RBC,Urine Occasional #/hpf (0-3)
[2024-01-18 03:23] LABS: Activated Partial Thrombo Time 42.4 seconds (22.8-30.6); INR 1.17 (0.9-1.1); Prothrombin Time 12.9 seconds (10.1-12.5)
[2024-01-18 03:42] LABS: Lymphocytes % 4 % (10-50); Monocytes % 4 % (2-9); Neutrophils % 89 % (42-76); Total Cells Counted 100
[2024-01-18 03:43] LABS: RBC Morphology Normal
[2024-01-18 03:45] LABS: Platelet Estimate Marked Decrease
[2024-01-18 03:53] LABS: Fibrinogen 298 mg/dL (229.9-363.5)
--- NOTE | 2024-01-18 04:02 | PC.NURSE ---
[facility] called for transport
--- NOTE | 2024-01-18 04:04 | PC.NURSE ---
Called report to Alanna at [facility]
[2024-01-18 04:19] VITALS: BP 115/67; PULSE 71; RESP 18; TEMP 37.3; O2SAT 97
[2024-01-19 08:29] LABS: HBsAg Screen Negative (Negative); HCV Ab Non Reactive (Non Reactive); Hep A Ab, IGM Negative (Negative); Hep B Core Ab, IgM Negative (Negative)
[2024-01-20 03:08] LABS: Peripheral Smear Review Scanned Result
== END 2024-01-18 04:33 | disposition other institution (70) ==
PROVIDERS: Emergency Provider Emergency Medicine; PCP Internal Medicine
DX: R50.9 Fever, unspecified (principal); R51.9 Headache, unspecified; R11.2 Nausea with vomiting, unspecified; D69.6 Thrombocytopenia, unspecified; E87.1 Hypo-osmolality and hyponatremia; R74.01 Elevation of levels of liver transaminase levels; A41.9 Sepsis, unspecified organism
CPT/HCPCS: 70450; 70496; 71045; 71275; 74177; 80053; 80074; 81001; 83690; 83735; 84703; 85007; 85025; 85378; 85384; 85610; 85730; 86318; 87040; 87265; 87486; 87581; 87632; 87635; 96361; 96374; 96375; 99285; J0131; J0780; J1200; J1885; J2543; J3475; J7120; Q9967

== ENCOUNTER 2024-04-02 09:25 | Outpatient (CLI) | payer BC, SELFPAY ==
[2024-04-02 19:15] LABS: Chol/HDL Ratio 3.7 (1-3.5); Cholesterol 193 mg/dl (140-200); HDL Cholesterol 52 mg/dl (40-60); Triglycerides 180 mg/dl (30-150); VLDL Cholesterol 36 mg/dL (0-40)
[2024-04-02 19:19] LABS: Basophils # 0.1 K/mm3 (0-0.2); Basophils % 1.3 % (0.1-2.0); Eosinophils # 0.8 K/mm3 (0.0-0.4); Eosinophils % 10.3 % (0.1-12.0); Hematocrit 39.9 % (37.0-47.0); Hemoglobin 12.9 g/dL (12.2-16.2); Lymphocytes # 4.4 K/mm3 (0.7-4.5); Lymphocytes % 53.8 % (10-50); Mean Corpuscular HGB Conc 32.3 g/dL (31.8-35.4); Mean Corpuscular Hemoglobin 29.4 pg (27.0-31.2); Mean Corpuscular Volume 90.9 fl (81-99); Mean Platelet Volume 9.1 fl (7.4-10.4); Monocytes # 0.6 K/mm3 (0.1-1.0); Monocytes % 7.3 % (1.7-9.3); Neutrophils # 2.2 K/mm3 (1.8-7.8); Neutrophils % 27.2 % (37.0-80.0); Platelet Count 422 K/mm3 (142-424); Red Blood Count 4.39 M/mm3 (4.20-5.40); Red Cell Distribution Width 13.1 % (11.5-17.5); White Blood Count 8.2 K/mm3 (4.8-10.8)
[2024-04-02 19:20] LABS: MANUAL DIFFERENTIAL MANUAL DIFFERENTIAL (MANUAL DIFF)
[2024-04-02 19:24] LABS: Intact Parathyroid Hormone 48.9 pg/mL (7.5-53.5)
[2024-04-02 19:27] LABS: Direct LDL Cholesterol 110.72 mg/dL (100-129)
[2024-04-02 19:35] LABS: 25-OH Vitamin D, Total 52.2 ng/mL (30-100)
[2024-04-02 21:27] LABS: Eosinophils % 8 % (0-3); Lymphocytes % 55 % (10-50); Monocytes % 9 % (2-9); Neutrophils % 28 % (42-76); Total Cells Counted 100
[2024-04-02 21:28] LABS: RBC Morphology Normal
[2024-04-02 21:29] LABS: Platelet Estimate Normal
== END 2024-04-02 23:59 | disposition home or self-care (01) ==
LOC: LAB.DROPOF 04-04 08:24
PROVIDERS: PCP Internal Medicine; Visit Provider Internal Medicine
DX: Z13.1 Encounter for screening for diabetes mellitus (principal); E21.3 Hyperparathyroidism, unspecified; E55.9 Vitamin D deficiency, unspecified; I10 Essential (primary) hypertension; E78.5 Hyperlipidemia, unspecified; A41.9 Sepsis, unspecified organism
CPT/HCPCS: 80061; 82306; 83036; 83970; 85007; 85025; 85027

== ENCOUNTER 2024-10-27 10:04 | Outpatient (CLI) | payer BC, SELFPAY ==
--- NOTE | 2024-10-27 10:08 | MM_ITS ---
PROCEDURE INFORMATION: Exam: MG Bilateral Screening 3D Mammography Exam date and time: 10/27/2024 10:11 AM Age: 44 years old Clinical indication: Screening examination TECHNIQUE: Imaging protocol: Bilateral Screening tomosynthesis and 2D mammography including computer-aided detection (CAD) when performed. COMPARISON: MG MM DIG SCREENING MAMM BI W/CAD 05/06/2019 8:48 AM FINDINGS: MAMMOGRAPHY: Breast composition: There are scattered areas of fibroglandular density. Mass: No suspicious masses. Architectural distortion: None. Calcifications: No suspicious calcifications. Asymmetric density: None. Skin thickening: None. Axillary adenopathy: None. IMPRESSION: No mammographic evidence of malignancy. Annual screening is recommended unless otherwise clinically indicated. ASSESSMENT: BI-RADS Category 1: Negative.
--- OUTSIDE RECORDS SUMMARY | 2024-10-27 10:09 | XMS_ITS | Clinical Summary ---
Author Organization 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 3 Active cetirizine (ZYRTEC) 10 mg Oral Tablet Take 10 mg by mouth daily. 3 Active cyanocobalamin 1,000 mcg/mL Inj Solution Subcutaneous (Inject under the skin) 1,000 mcg every 30 days. 3 Active cyclobenzaprine (FLEXERIL) 10 mg Oral Tablet Take 10 mg by mouth 3 times daily as needed. 3 Active dextroamphetami ne-amphetamine (ADDERALL XR) 25 mg Oral Capsule, Sust. Release 24 hr Take 25 mg by mouth daily. Active diclofenac (VOLTAREN) 75 mg Oral Tablet, Delayed Release (E.C.) Take 75 mg by mouth 2 times daily. 3 Active hydroCHLOROthia zide (MICROZIDE) 12.5 mg Oral Capsule Take 12.5 mg by mouth daily. Active LEVOthyroxine (SYNTHROID) 25 mcg Oral Tablet Take 25 mcg by mouth daily. 3 Active losartan (COZAAR) 50 mg Oral Tablet Take 50 mg by mouth daily. Active metoprolol succinate (TOPROL-XL) 50 mg Oral Tablet Sustained Release 24 hr Take 50 mg by mouth daily. for blood pressure Active nystatin (MYCOSTATIN) Top Cream Apply topically as needed. 3 Active omeprazole (PRILOSEC) 40 mg Oral Capsule, Delayed Release(E.C.) Take 40 mg by mouth daily. Active venlafaxine (EFFEXOR-XR) 75 mg Oral Capsule, Sust. Release 24 hr Take 75 mg by mouth daily. 2 Active atorvastatin (LIPITOR) 20 mg Oral Tablet Take 20 mg by mouth daily. Active ascorbic acid, vitamin C, (VITAMIN C) 500 mg Oral Tablet Take 1 Tablet by mouth daily. 30 Tablet 3 Active Pyridoxine 200 mg Oral Tablet Sustained Release Take 1 Tablet by mouth daily. 30 Tablet 3 Active Social History Tobacco Use Types Packs/Day Years Used Date Smoking Tobacco: Former Cigarettes Smokeless Tobacco: Never Tobacco Cessation:Counseling Given: Not Answered Alcohol Use Standard Drinks/Week Comments Not Currently 0 (1 standard drink = 0.6 oz pur e alcohol) Comments Unknown Sex and Gender Information Value Date Recorded Sex Assigned at Not on file Legal Sex Female 10:37 AM EDT Gender Identity Not on file Sexual Orientation Not on file Obstetrics History Last Filed Vital Signs Vital Sign Reading Time Taken Comments Blood Pressure - - Pulse - - Temperature - - Respiratory Rate - - Oxygen Saturation - - Inhaled Oxygen Concentration - - Weight 81.6 kg (180 lb) 01/23/2023 8:49 AM EDT P er Patient Height - - Body Mass Index - - Plan of Treatment Health Maintenance Due Date Last Done Comments Annual Wellness Exam 1983 DTaP/TDaP/Td (1 - Tdap) 1999 Hepatitis B Vaccine (1 of 3 - 19+ 3-dose series) 1999 Cervical Cancer Screening 2001 Pap Smear 2001 HPV/Pap Cotest 2010 Breast Cancer Screening 2020 COVID-19 Vaccine (2023-2 5 season) 2023 Influenza Vaccine (#1) 2024 02/27/2018 Meningococcal B Vaccine Aged Out No l onger eligible based on patient's age to complete this topic Pneumococcal Vaccine 0-49 Aged Out No longer eligible based on patient's age to complete this topic Insurance [employer] [facility] [place] [employer] [id number] [facility] [place] [id number] [employer] [place]
--- OUTSIDE RECORDS SUMMARY | 2024-10-27 10:09 | XMS_ITS | Clinical Summary ---
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 3 Active omeprazole (PriLOSEC) [address] capsule Take 2 capsules (40 mg) by mouth 1 (one) time each day. 3 Active cyanocobalamin (Vitamin B-12) 1000 MCG/ML injection Inject 1 mL (1,000 mcg) into the muscle every 30 (thirty) days. 3 Active busPIRone (Buspar) 5 MG tablet Take 2 tablets (10 mg) by mouth 2 (two) times a day. 3 Active atorvastatin (Lipitor) 10 MG tablet Take 1 tablet (10 mg) by mouth every night. 3 Active Alpha tocopherol (Vitamin E) 200 units capsule Take 1 capsule (200 Units) by mouth 1 (one) time each day. Active ondansetron ODT (Zofran-ODT) 4 MG disintegrating tablet Take 1 tablet (4 mg) by mouth every 8 (eight) hours if needed for vomiting or nausea. 4 Active levothyroxine (Synthroid, Levoxyl) 50 MCG tablet Take 1 tablet (50 mcg) by mouth 1 (one) time each day before breakfast. 4 12/11/19 25 Active ascorbic acid (Vitamin C) 500 MG tablet Take 1 tablet (500 mg) by mouth 1 (one) time each day. 3 Active Vitamin D3 1.25 MG (97031 UT) capsule Take 1 capsule (50,000 Units) by mouth 1 (one) time per week. On Sundays 3 Active famotidine (Pepcid) 20 MG tablet Take 1 tablet (20 mg) by mouth 2 (two) times a day. 4 Active Pyridoxine HCl ER 200 MG tablet controlled-release Take 1 tablet by mouth 1 (one) time each day. 3 Active metoprolol succinate XL (Toprol-XL) 50 MG 24 hr tablet Take 1 tablet (50 mg) by mouth 1 (one) time each day. Do not crush or chew. Active potassium chloride CR (Klor-Con) 10 MEQ ER tablet Take 1 tablet (10 mEq) by mouth 1 (one) time each day. Do not crush, chew, or split. Active methocarbamol (Robaxin) 500 MG tablet Take 1 tablet (500 mg) by mouth 4 (four) times a day for 7 days. 28 tablet 4 Active ondansetron ODT (Zofran-ODT) 4 MG disintegrating tablet Take 1 tablet (4 mg) by mouth every 8 (eight) hours if needed for nausea or vomiting. 20 tablet 4 Active Active Problems Problem Noted Date Diagnosed Date Abnormal weight 01/23/2024 Acute upper respiratory infection 01/23/2024 Allergic reaction caused by a drug 01/23/2024 Anxiety 01/23/2024 Attention deficit hyperactivity disorder (ADHD) 01/23/2024 B12 deficiency 01/23/2024 Overview (01/23/2024): B12 levels were normal drawn at the last visit. Chest pain 01/23/2024 Contusion of hand 01/23/2024 Cough 01/23/2024 Daytime somnolence 01/23/2024 Depression 01/23/2024 Dyspnea 01/23/2024 Elevated parathyroid hormone 01/23/2024 Overview (01/23/2024): Likely due to gastric bypass Environmental and seasonal allergies 01/23/2024 Overview (01/23/2024): Part of this patient's issues is her environmental allergies. Will give a steroid injection today. She is to call is not improved. Facet hypertrophy of lumbar region 01/23/2024 Foraminal stenosis of lumbar region 01/23/2024 Hyperparathyroidism 01/23/2024 Overview (01/23/2024): Dr. Soriano has been following this patient and has obtained quite a few labs. I do not have a note from him yet but I assume this will be coming in the future as Krystle follows up with him. Intertrigo 01/23/2024 Nausea vomiting and diarrhea 01/23/2024 Osteoarthritis 01/23/2024 Otitis interna 01/23/2024 Overview (01/23/2024): Krystle's right TM was very erythematous. Will add a Z-pac to treat. Otitis externa 01/23/2024 Paresthesia of upper extremity 01/23/2024 Overview (01/23/2024): Krystle is describing paresthesias in the upper extremity. Additionally she does have some functional effects that she describes as fumbling . However on my physical exam I could not find any abnormalities. This may be related just to position. I would like to see nerve conduction studies EMGs just to make sure were not dealing with an impingement syndrome of some type either in the cervical region or elsewhere. We will get this is soon as possible. Poison maximus 01/23/2024 Protrusion of lumbar intervertebral disc 024 Pyelonephritis 01/23/2024 SIRS (systemic inflammatory response syndrome) 1 Swelling 01/23/2024 Transaminitis 01/23/2024 UTI (urinary tract infection) 01/23/2024 Severe obesity (BMI 35.0-39.9) with comorbidity 01/22/2024 Septic shock 01/18/2024 Unintended weight gain 01/06/2024 Gastroesophageal reflux disease 07/22/2023 Dysphagia 07/01/2023 Excess skin of abdominal wall 07/01/2023 Excess skin 10/22/2022 Heartburn 06/03/2022 Essential hypertension 02/18/2022 Overview (01/23/2024): Today is 118/66. Her blood pressure appears well-controlled on the current medical plan. Hyperlipidemia 02/18/2022 Overview (01/23/2024): I have suggested to Krystle that she go on omega-3 for 6 fatty acids. She is to talk with her pharmacist about the best option. Hypothyroidism 02/18/2022 Overview (01/23/2024): Last TSH was within normal range. She is on Synthroid. Vitamin D deficiency 02/18/2022 Overview (01/23/2024): Vitamin D was normal. Follow DDD (degenerative disc disease), lumbar 04/25/19 19 Left leg numbness 04/25/2018 Low back pain with sciatica 04/25/2018 Immunizations Immunization Administration Dates Next Due Influenza, injectable, quadrivalent, preservativ e free 02/27/2018 Family History Medical History Relation Name Comments Coronary artery disease Other 1 Diabetes Other 2 Hypertension Other 3 Relation Name Status Comments Other 1 Other 2 Other 3 Social History Tobacco Use Types Packs/Day Years Used Date Smoking Tobacco: Former Smokeless Tobacco: Never Tobacco Cessation:Counseling Given: Not Answered Alcohol Use Standard Drinks/Week Comments Never 0 (1 standard drink = 0.6 oz pur e alcohol) Humiliation, Afraid, Rape, and Kick questionnair e Answer Date Recorded Within the last year, have y ou been afraid of your partner or ex-partner? No 01/20/2024 Within the last year, have y ou been humiliated or emotionally abused in other ways by your partner or ex-partner? No Within the last year, have y ou been kicked, hit, slapped, or otherwise physically hurt by your partner or ex-partner? No 01/20/2024 Within the last year, have y ou been raped or forced to have any kind of sexual activity by your partner or ex-partner? No 01/20/2024 PHQ-2 Answer Date Recorded Patient Health Questionnaire-2 Score 0 01/30/2024 Hunger Vital Sign Answer Date Recorded Within the past 12 months, y ou worried that your food would run out before you got the money to buy more. Never true 01/20/20 24 Within the past 12 months, t he food you bought just didn't last and you didn't have money to get more. Never true 01/20/2024 PRAPARE - Transportation Answer Date Re corded In the past 12 months, has l ack of transportation kept you from medical appointments or from getting medications? No 12/31 In the past 12 months, has l ack of transportation kept you from meetings, work, or from getting things needed for daily living? No 01/20/2024 Housing Stability Vital Sign Answer Ovi e Recorded In the last 12 months, was t here a time when you were not able to pay the mortgage or rent on time? No 01/20/2024 Number of Places Lived in the Last Year Not on f ile 01/20/2024 In the last 12 months, was t here a time when you did not have a steady place to sleep or slept in a fci (including now)? No 01/20/2024 Utilities Answer Date Recorded In the past 12 months has th e electric, gas, oil, or water company threatened to shut off services in your home? No 01/20/2024 Comments No Sex and Gender Information Value Date Recorded Sex Assigned at Not on file Legal Sex Female 6:43 PM EDT Gender Identity Not on file Sexual Orientation Not on file Last Filed Vital Signs Vital Sign Reading Time Taken Comments Blood Pressure 94/69 04/27/2024 2:24 PM EST Pulse 79 04/27/2024 2:24 PM EST Temperature 36.4 C (97.6 F) 04/27/2024 2:24 PM EST Respiratory Rate 16 04/27/2024 2:24 PM EST Oxygen Saturation 97% 04/27/2024 2:24 PM EST Inhaled Oxygen Concentration - - Weight 81.9 kg (180 lb 8.9 oz) 04/27/2024 2:24 P M EST Height 152.4 cm (5') 04/27/2024 2:24 PM EST Body Mass Index 35.26 04/27/2024 2:24 PM EST Plan of Treatment Health Maintenance Due Date Last Done Comments [facility]-Infant/Child/Adol SDOH Screenings 1980 [id number] Vaccine (#1) 1985 [facility]-Varicella Vaccines (1 of 2 - 13+ 2-dose series) 1993 HPV Vaccines (1 - 3-dose series) 1995 [facility]-DTaP,Tdap,and Td Vaccines (1 - Tdap) 1999 [facility]-Hepatitis B Vaccines (1 of 3 - 19+ 3-dose series) 1999 [facility]-Pneumococcal Vaccine: Pediatrics (0 to 5 Years) and At-Risk Patients (6 to 49 Years) (1 of 2 - PCV) 1999 [facility]-Pap Smear 2001 [facility]-Cervical Cancer Screening 2010 [facility]-HPV/Cotest 2010 [facility]- SDOH Screenings 07/20/2024 [facility]-Adult SDOH Screenings 07/20/2024 01/20/2024 [facility]-Influenza Vaccine (#1) 2024 02/27/2018 [facility]-Depression Screening 01/29/2025 01/30/2024 [facility]-Zoster Vaccines (1 of 2) 2030 [facility]-HIV Screening Completed 01/18/2024 [facility]-Hepatitis C Screening Completed 01/18/2024, [facility]-Obesity Intervention Completed 025, 04/13/2024, 03/19/2024, Additional history exists [facility]-HIB Vaccines Aged Out No longer e ligible based on patient's age to complete this topic [facility]-Hepatitis A Vaccines Aged Out No longer eligible based on patient's age to complete this topic [facility]-IPV Vaccines Aged Out No longer e ligible based on patient's age to complete this topic [facility]-Rotavirus Vaccines Aged Out No lo nger eligible based on patient's age to complete this topic Procedures Procedure Name Priority Date/Time Associated Diagnosis Comments HEPATITIS C ANTIBODY - ED W/REFLEX TO HCV QUANT PCR STAT 01/18/2024 5:38 AM EDT ED HIV 1/2 ANTIBODY/ANTIGEN SCREEN WITH REFLEX TO HIV I/II DIFFERENTIATION STAT 01/18/2024 5:38 AM EDT from Last 3 Months or Most Recently Relevant to Health Maintenance Results * ED HIV 1/2 Antibody/Antigen Screen w/Reflex to HIV 1/2 Differentiation (01/18/2024 5:38 AM EDT) HIV 1 & 2 Antibody/Antigen Screen Non Reactive Non Reactive 01/18/2024 6:28 AM EDT [facility] Comment:Screening for HIV 1 & 2 antibodies, and P24 antigen is NONREACTIVE. No confirmatory testing is required. Blood Venous blood specimen / Unknown Venipuncture / Unknown 01/18/2024 5:38 AM EDT 01/18/2024 5:50 AM EDT Jose Gunn MD LAB BLOOD ORDERABLES Fi nal Result Performing Organization Address [facility] Co de Phone Number [facility] [address] [place] [address] * Hepatitis C Antibody - ED (01/18/2024 5:38 AM EDT) Hepatitis C Antibody Negative Negative 01/18/2024 6:27 AM EDT [facility] Blood Venous blood specimen / Unknown Venipuncture / Unknown 01/18/2024 5:38 AM EDT 01/18/2024 5:50 AM EDT Jose Gunn MD LAB BLOOD ORDERABLES Fi nal Result [facility] [address] [place] [address] from Last 3 Months or Most Recently Relevant to Health Maintenance Insurance [employer] Advance Directives * Full Code (Latest Code Status on File) Date Activated Date Inactivated Comments 01/18/2024 7:53 AM 01/28/2024 4:56 PM Question Answer Comments Patient has decision-making capacity? Yes Care Teams Nonprofit Fundraiser Relationship Specialty Start Date End Date Franki Solis DO [address] [place] [address] PCP - General 01/20/24
--- OUTSIDE RECORDS SUMMARY | 2024-10-27 10:09 | XMS_ITS | Continuity of Care Document ---
Author Organization ID - [employer], [employer] [facility] Address [address] [place] [address] Assessment No assessment recorded. Plan of Treatment Reminders Order Date Submit Date Provider Last Modified By Organization Details Last Modified Time Details Appointments None recorded. Lab HbA1c (hemoglobin A1c), blood 2024 025 [email or web address] [facility] ([facility], [address] [place] [address], [address], 5 15:04:40 unlisted lab - toxassure flex 19, [id number] 2024 025 [email or web address] [facility] ([facility], [address] [place] [address], [id number], 5 15:04:40 TSH, ultra-sensi tive, serum 2024 025 [email or web address] [facility] ([facility]), [address] [place] [address], [address], 5 15:04:40 CMP, serum or plasma 2024 025 [facility] ([facility], [address] [place] [address], [address], 5 15:04:40 CBC w/ auto diff 2024 025 [email or web address] [facility] ([facility], [address] [place] [address], [address], 15:04:40 Hepatitis C IgG Ab, qual, serum 2024 025 [facility] ([facility]), [address] [place], [address], 15:04:40 HIV 1 + 2, meaningful use set 2024 025 [facility] ([facility]), [address] [place], [address], 15:04:40 lipid panel, serum 2024 025 [email or web address] [facility] ([facility]), [address] [place], [address], 15:04:40 cobalamin and folate panel, serum 2024 025 [email or web address] [facility]), [address] [place], [address], 15:04:40 vitamin D, 25-hydroxy, total, serum 2024 025 [email or web address] [facility]), [address] [place], [address], 15:04:40 Referral None recorded. Procedures None recorded. Surgeries None recorded. Imaging MAMMO, screening, bilateral 2024 025 [email or web address] 2 [facility] ([facility], [facility]), [address], [place], [address], 14:57:48 Medication Orders None recorded. Patient TargetsNo targets recorded. Patient Instructions Encounter Date Encounter Id Patient Instructions Last Modified By Organization Details Last Modified Time 10/23/2024 [id number] mammogram: about this test [email or web address] Not available 10/23/2024 14:34:34 high blood pressure: care instructions [email or web address] Not available 10/23/2024 15:04:40 learning about high blood pressure [email or web address] Not available 10/23/2024 15:04:40 mental health assessment* ISAURO Not available 10/23/2024 14:31:23 MHI Packet Adult [email or web address] Not available 10/23/2024 14:29:39 HIV testing: car e instructions [email or web address] Not available 10/23/2024 15:04:40 attention defici t hyperactivity disorder (ADHD) in adults: care instructions [email or web address] Not available 10/23/2024 14:29:40 Reason for Referral None Reported. Results Created Date Observation Date Name Description Value Unit Range Abnormal Flag Note LastModifiedBy Organization Detail LastModifiedTime Result Notes None recorded. Problems Name Problem SNOMED Code Status Onset Date Resolution Date Notes Provider Name and Address Organization Details Recorded Time Adult attention deficit hyperactivity disorder 402464668 Active 2024 YUE Vergara [address] [place] [address], [address], [employer] 14:28:51 Mixed hyperlipidemia 005602152 Active 2024 YUE Vergara [address] [place] [address], [address] 8, [employer] 14:31:29 Anxiety 02086628 Active 2024 YUE Vergara [address] [place] [address], [address] 8, [employer] 14:31:47 Vitamin D deficiency 87463294 Active 2024 YUE Vergara [address] [place] [address], 835[address] 8, [employer] 14:31:55 Gastroesophage al reflux disease without esophagitis 744944265 Active 2024 YUE Vergara [address] [place] [address], 39[address] 8, [employer] 14:32:16 Hypertensive disorder 29774023 Active 2024 YUE Vergara [address] [place] [address], [address] 8, [employer] 14:32:26 Moderate major depression, single episode 84287004 Active 2024 YEU Vergara [address] [place] [address], [address] 8, [employer] 14:32:50 Cobalamin deficiency 589027141 Active 2024 YUE Vergaar [address] [place] [address], [address] 8, [employer] 14:33:07 Seasonal allergic rhinitis 498149436 Active 2024 YUE Vergara [address] [place] [address], 73[address] 8, [employer] 14:33:27 Osteoarthritis of multiple joints 774829219 Active 2024 YUE Vergara [address] [place] [address], [address] 8, [employer] 14:33:45 Problem Notes None recorded. Procedures Surgical History Date Name Laterality Status Provider Name and Address Organization Details Recorded Time 05/10/19 20 Most Recent Mammogram completed [employer] 10/23/2024 14:03:00 Back Surgery completed [employer] 10/23/2024 14:03:01 Gastric Bypass completed [employer] 10/23/2024 14:03:01 Tonsillectomy completed [employer] 10/23/2024 14:03:01 Tubal Ligation completed [employer] 10/23/2024 14:03:01 Imaging Results None recorded. Procedure Notes None recorded. Medical Equipment None Reported. Allergies Allergen ID Allergen Name Allergen Category Reaction Reaction Severity Criticality Documentation Date Start Date Code Code System Note Provider Name and Address Organization Details Recorded Time 08054 lisinopri l medicatio n Not available Not available Not available 10/23/2024 56916 [employer] 14:06:23 Medications Name Sig Start Date Stop Date Status Note LastModified by Organization Details LastModified Time losartan 50 mg tablet Take 1 tablet every day by oral route. active Not Available Not Available No t Available atorvastati n 20 mg tablet Take 1 tablet every day by oral route. active Not Available Not Available No t Available cetirizine 10 mg tablet Take 1 tablet every day by oral route. active Not Available Not Available No t Available venlafaxine ER 150 mg capsule,ext ended release 24 hr Take 1 capsule every day by oral route. active Not Available Not Available No t Available omeprazole 40 mg capsule,del ayed release TAKE 1 CAPSULE BY MOUTH ONCE DAILY FOR GERD active Not Available Not Available No t Available famotidine 20 mg tablet TAKE 1 TABLET BY MOUTH TWICE DAILY active Not Available Not Available No t Available levothyroxi ne 50 mcg tablet Take 1 tablet every day by oral route. active Not Available Not Available No t Available cyanocobala min (vit B-12) 1,000 mcg/mL injection solution INJECT 1 ML INTRAMUSC ULARLY ONCE EVERY MONTH active Not Available Not Available No t Available buspirone 10 mg tablet Take 1 tablet twice a day by oral route. active Not Available Not Available No t Available diclofenac sodium 75 mg tablet,nhung yed release Take 1 tablet twice a day by oral route. active Not Available Not Available No t Available bromphenira mine-pseudo ephedrine-D M 2 mg-30 mg-10 mg/5 mL oral syrup TAKE 5 ML BY MOUTH EVERY 4 HOURS NEEDED FOR SINUS SYMPTOMS 10/23 completed Not Available Not Available Not Available ondansetron 4 mg disintegrat ing tablet DISSOLVE 1 TABLET IN MOUTH EVERY 6 HOURS NEEDED FOR NAUSEA AND VOMITING active Not Available Not Available No t Available dextroamphe tamine-amph etamine ER 25 mg 24hr capsule,ext end release TAKE 1 CAPSULE BY MOUTH ONCE DAILY 10/23 completed Not Available Not Available Not Available potassium chloride 10 meq active Not Available Not Available Not Available hydrochloro thiazide 12.5 mg tablet Take 1 tablet every day by oral route. active Not Available Not Available No t Available cholecalcif sagrario (vitamin D3) 1,250 mcg (50,000 unit) capsule TAKE 1 CAPSULE BY MOUTH ONCE A WEEK active Not Available Not Available No t Available Vitamin D2 active Not Available Not Av ailable Not Available Flonase Allergy Relief 50 mcg/actuati on nasal spray,suspe nsion [place] 1 spray every day by intranasa l route. active Not Available Not Available No t Available metoprolol succinate ER 50 mg capsule sprinkle, ext. release 24 hr Take 1 capsule every day by oral route. active Not Available Not Available No t Available Vitals Date Recorded Body weight Body mass index (BMI) Body height Oxygen saturation Oxygen saturation in Arterial blood by Pulse oximetry Heart rate Body temperature Systolic And Diastolic Provider Name and Address Organization Details Last Updated DateTime 80076.7 6 g 37.8 kg/m2 152.4 cm 98 % 98 % 68 /min 98.3 [degF] 108/66 mm[Hg] Destiny Bryant [employer] 14:16:41 Social History Question Answer Notes LastModified by Organizat ion Details LastModified Time Tobacco Smoking Status Former Smoker Destiny Bryant richar, [employer] 10/23/2024 14:03:01 Do You Have An Advance Directive? No Information not available 10/23/2024 Is Your Home Air Conditioned? Yes Information not available 10/23/2024 If You Are , What Was Your Level Of Alcohol Consumption Prior To ? None Information not available 10/23/2024 How Many Years Have You Consumed Alcohol? 20 Information not available 10/23/2024 Do You Wear A Helmet When Biking? Yes Information not available 10/23/2024 Are You Blind Or Do You Have Difficulty Seeing? No Information not available 10/23/2024 What Is Your Level Of Caffeine Consumption? Moderate Information not available 10/23/2024 What Type Of Television Director Do You Use? None Information not available 10/23/2024 Have You Been To An Area Known To Be High Risk For COVID-19? No Information not available 10/23/2024 Are You Deaf Or Do You Have Serious Difficulty Hearing? No Information not available 10/23/2024 What Type Of Diet Are You Following? REGULAR Information not available 10/23/2024 What Is The Highest Grade Or Level Of School You Have Completed Or The Highest Degree You Have Received? BO17300-0 Information not available 10/23/2024 How Many Days Of Moderate To Strenuous Exercise, Like A Brisk Walk, Did You Do In The Last 7 Days? 2 Information not available 10/23/2024 Have There Been Any Changes To Your Family Or Social Situation? No Information not available 10/23/2024 When Did You Quit Smoking? 6-10yearssin addy tte Stop Date 2017 Information not available 10/23/2024 Are There Any Guns Present In Your Home? Yes Information not available 10/23/2024 Which Of Your Hands Is Dominant? Right Information not available 10/23/2024 What Is Your Home Situation? Both Parents Information not available 10/23/2024 Do You Have A Medical Power Of Cloth Examiner? No Information not available 10/23/2024 What Was The Date Of Your Most Recent Tobacco Screening? 10/23/2024 Information not available 10/23/2024 Do You Have Any Pets? Yes Information not available 10/23/2024 Do You Use Protection During Sex? No Information not available 10/23/2024 What Is Your Relationship Status? Information not available 10/23/2024 Have You Repeated Any Grades? No Information not available 10/23/2024 Do You Use Your Seat Belt Or Car Seat Routinely? Yes Information not available 10/23/2024 Are You Sexually Active? Yes Information not available 10/23/2024 Do You Have Smoke And Carbon Monoxide Detectors In Your Home? Yes Information not available 10/23/2024 At What Age Did You Start Smoking Tobacco? 16 Information not available 10/23/2024 Are You Passively Exposed To Smoke? No Information not available 10/23/2024 Are There Any Smokers In Your House? No Information not available 10/23/2024 How Much Tobacco Do You Smoke? 1 PPD Information not available 10/23/2024 Do You Use Sunscreen Routinely? Yes Information not available 10/23/2024 Has Tobacco Cessation Counseling Been Provided? No Information not available 10/23/2024 How Many Years Have You Smoked Tobacco? 20 Information not available 10/23/2024 Have You Recently Traveled Abroad? No Information not available 10/23/2024 Do You Have Difficulty Walking Or Climbing Stairs? No Information not available 10/23/2024 Are You Currently In School? No Information not available 10/23/2024 How Many Days In The Past Year Have You Consumed 4 Or More Drinks? 1 Information not available 10/23/2024 Sex: Unknown Functional Status Question Answer Note LastModified by Organizat ion Details LastModified Time Do you use any illicit or recreational drugs? No Information not available 10/23/2024 Do you or have you ever used any other forms of tobacco or nicotine? No Information not available 10/23/2024 What is your level of alcohol consumption? Occasional Information not available 10/23/2024 Are you currently employed? No Information not available 10/23/2024 Do you have transportation difficulties? No Information not available 10/23/2024 Are you able to walk? YESWOREST Information not available 10/23/2024 Do you have difficulty doing errands alone? No Information not available 10/23/2024 Are you able to care for yourself independently? Yes Information not available 10/23/2024 Do you have difficulty dressing, bathing, grooming, or toileting? No Information not available 10/23/2024 What is your exercise level? Occasional Information not available 10/23/2024 Mental Status Question Answer Note LastModified by Organization D etails LastModified Time Do you have difficulty concentrating, remembering or making decisions? Yes Information no t available 10/23/2024 Are you or have you been involved with bullying? No Information not available 10/23/2024 Family History Relationship Description Onset Age of this Age Resolved Age Notes LastModified by Organization Details LastModified Time Mother Hypercholest erolemia Not available 2024 14:03:00 Mother Depressive disorder Not available 2024 14:03:00 Mother Arthritis Not available 10/23/2024 14:03:00 Mother Hypertensive disorder Not available 2024 14:03:00 Mother Osteoporosis Not availab le 10/23/2024 14:03:00 Maternal Grandmother Hypercholest erolemia Not available 2024 14:03:00 Maternal Grandmother Alzheimer's disease Not available 2024 14:03:00 Maternal Grandmother Arthritis Not available 09/30 14:03:00 Maternal Grandmother Hypertensive disorder Not available 2024 14:03:00 Maternal Grandmother Osteoporosis Not available 0 10/23/2024 14:03:00 Paternal Grandfather Hypertensive disorder Not available 2024 14:03:00 Father Anxiety disorder Not available 2024 14:03:00 Medical History Condition Response Diabetes Y Anxiety Disorder Y Obesity Y Arthritis Y Acid Reflux (GERD) Y Thyroid Problems Y Depression Y ADD/ADHD Y High Cholesterol Y Headaches Y Hypertension Y Gynecological History Statement/Question Response Menses Monthly N HPV Vaccine N Date of Last Pap Smear Current Control Method Tubal Ligat ion Most Recent Mammogram 2019 Age at First Child 14 Obstetrics History GPAL:G 8 P 7 0 1 7 Type Value Multiple Births 0 Full Term 7 Induced 0 Spontaneous 1 Premature 0 Living 7 Ectopics 0 Total 8 Past Encounters Encounter ID Performer Location Encounter Start Date Encounter Closed Date Diagnosis/Indication Diagnosis SNOMED-CT Code Diagnosis ICD10 Code Diagnosis Note [id number] YUE Vergara [address] [address] 10/23/2024 14:00:09 10/23/2024 14:57:48 Screening mammography 74494641 Z12.31 Adult atte ntion deficit hyperactivity disorder 095795658 F90.9 Counseling 543519380 Z71 .9 Long-term current use of drug therapy 702554522 Z79.899 Vitamin D deficiency 347 88357 E55.9 Mixed hyperlipidemia 267 027558 E78.2 Vitamin B deficiency 479 86323 E53.8 Essential hypertension 23819214 I10 Thyroid di sorder screening 532218683 Z13.29 History of endocrine disorder 568102210 Z87.898 HIV screening 270289425 Z11.4 Viral scre ening status 192887743 Z11.59 Health Concerns Section Related Observation LastModified by Organization Detai ls LastModified Time None Recorded Concern Status LastModified by Organization Details LastModified Time None Recorded Payers Encounter Date Sequence Insurance Name Policy Number Policy Hoskins Covered Member ID Hoskins Member ID Guarantor Name 10/23/2024 1 BCBS-[place]: [place] [id number] Moises Squires [id number] Krystle Squires OBGyn Episode No OBEpisode recorded.
--- OUTSIDE RECORDS SUMMARY | 2024-10-27 10:09 | XMS_ITS | Clinical Summary ---
Author Organization [facility] Address [address] [place] [id number] Phone [email or web address] Care Team Providers Care Composing Room Machinist Name Role Phone Silas Connors MD Primary Care Provider [phone] Allergies Active Allergy Reactions Criticality Noted Date Comments Lisinopril Rash Medium 02/06/2023 Medications cyanocobalamin 1000 MCG/ML injection INJECT 1 ML INTRAMUSCULARLY ONCE EVERY MONTH 03/12/20 23 Active Cholecalciferol (Vitamin D3) 1.25 MG (19224 UT) capsuleIndication s:Vitamin D deficiency Take one a week 12 capsule 04/27/19 25 Active cetirizine (ZyrTEC) 10 MG tabletIndications :Allergic rhinitis, unspecified seasonality, unspecified trigger Take 1 tablet (10 mg total) by mouth 1 (one) time each day. 100 tablet 07/07/19 25 2025 Active fluticasone (FLONASE) 50 MCG/ACT nasal sprayIndications: Allergic rhinitis, unspecified seasonality, unspecified trigger Administer 2 sprays into each nostril in the morning and 2 sprays in the evening. 16 g 07/07/19 25 Active atorvastatin (LIPITOR) 20 MG tabletIndications :Hyperlipidemia, unspecified hyperlipidemia type Take 1 tablet (20 mg total) by mouth 1 (one) time each day. 90 tablet 07/17/19 25 Active busPIRone (BUSPAR) 5 MG tabletIndications :Anxiety Take 2 tablets (10 mg total) by mouth in the morning and 2 tablets (10 mg total) in the evening. 360 tablet 07/17/19 25 Active diclofenac (VOLTAREN) 75 MG EC tabletIndications :Spondylosis of lumbosacral region without myelopathy or radiculopathy Take 1 tablet (75 mg total) by mouth in the morning and 1 tablet (75 mg total) in the evening. Do not crush, chew, or split.. 180 tablet 07/17/19 25 Active hydroCHLOROthiazi de (MICROZIDE) 12.5 MG capsuleIndication s:Hypertension, unspecified type Take 1 capsule (12.5 mg total) by mouth 1 (one) time each day. 100 capsule 07/17/19 25 Active levothyroxine (Synthroid) 50 MCG tabletIndications :Hypothyroidism, unspecified type Take 1 tablet (50 mcg total) by mouth 1 (one) time each day. 90 tablet 07/17/19 25 2025 Active losartan (COZAAR) 50 MG tabletIndications :Hypertension, unspecified type Take 1 tablet (50 mg total) by mouth 1 (one) time each day. 90 tablet 07/17/19 25 Active metoprolol succinate XL (TOPROL-XL) 50 MG 24 hr tabletIndications :Hypertension, unspecified type Take 1 tablet (50 mg total) by mouth 1 (one) time each day. Do not crush or chew. 90 tablet 07/17/19 25 Active omeprazole (PriLOSEC) [address] capsuleIndication s:Gastroesophagea l reflux disease without esophagitis Take 2 capsules (40 mg total) by mouth 1 (one) time each day. Do not crush or chew. 180 capsule 1 07/17/19 25 Active potassium chloride (KLOR-CON) 10 MEQ CR tabletIndications :Hypokalemia Take 1 tablet (10 mEq total) by mouth 1 (one) time each day. Do not crush, chew, or split. 100 tablet 07/17/19 25 2025 Active venlafaxine XR (Effexor XR) 75 MG 24 hr capsuleIndication s:Depression, unspecified depression type Take TWO capsules each morning. Do not crush or chew. 180 capsule 07/17/19 25 Active famotidine (PEPCID) 40 MG tabletIndications :Gastroesophageal reflux disease without esophagitis Take 1 tablet (40 mg total) by mouth 1 (one) time each day. 90 tablet 07/17/19 25 2024 Active Problems Problem Noted Date Diagnosed Date Severe obesity (BMI >= 40) 04/27/2024 Heartburn 06/03/2022 Essential hypertension 02/18/2022 Hyperlipidemia 02/18/2022 Assessment & Plan (07/16/2024 3:57 PM EDT): Orders: atorvastatin (LIPITOR) 20 MG tablet; Take 1 tablet (20 mg total) by mouth 1 (one) time each day. Assessment & Plan (04/27/2024 8:16 AM EST): Orders: atorvastatin (LIPITOR) 20 MG tablet; Take 1 tablet (20 mg total) by mouth 1 (one) time each day. CMP12+LP+6AC (580476) - [facility] Hypothyroidism 02/18/2022 Assessment & Plan (07/16/2024 3:57 PM EDT): Orders: levothyroxine (Synthroid) 50 MCG tablet; Take 1 tablet (50 mcg total) by mouth 1 (one) time each day. Assessment & Plan (04/27/2024 8:16 AM EST): Orders: levothyroxine (Synthroid) 50 MCG tablet; Take 1 tablet (50 mcg total) by mouth 1 (one) time each day. TSH Thyroid Stimulating Hormone (28376) T4, Free (70402) Morbid obesity 02/18/2022 Vitamin D deficiency 02/18/2022 Assessment & Plan (04/27/2024 8:16 AM EST): Orders: Cholecalciferol (Vitamin D3) 1.25 MG (25220 UT) capsule; Take one a week Vitamin D 25-Hydroxy - [facility] (77391) (Test [id number]) Immunizations Immunization Administration Dates Next Due Influenza, (Afluria Fluarix Flulaval Fluzone) quad, PF (CVX-150) 02/27/2018 Social History Tobacco Use Types Packs/Day Years Used Date Smoking Tobacco: Former Cigarettes Smokeless Tobacco: Never Tobacco Cessation:Counseling Given: Not Answered Depression Answer Date Recorded PHQ Total Score 9 04/27/2024 Stress Answer Date Recorded Stress in your Life Not on file 02/06/2024 Dealing with Stress 3 02/06/2024 Comments Unknown Sex and Gender Information Value Date Recorded Sex Assigned at Female 12/09/2023 12:54 PM CDT 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 Gender Identity Female 12/09/2023 12:54 PM CDT Sexual Orientation Not on file Last Filed Vital Signs Vital Sign Reading Time Taken Comments Blood Pressure 118/68 07/16/2024 1:58 PM EDT Pulse 77 07/16/2024 1:58 PM EDT Temperature 36.9 C (98.4 F) 07/16/2024 1:58 PM EDT Respiratory Rate - - Oxygen Saturation 98% 07/16/2024 1:58 PM EDT Inhaled Oxygen Concentration - - Weight 84.6 kg (186 lb 6.4 oz) 07/16/2024 1:58 P M EDT Height 152.4 cm (5') 07/16/2024 1:58 PM EDT Body Mass Index 36.4 07/16/2024 1:58 PM EDT Plan of Treatment Health Maintenance Due Date Last Done Comments Dental Cleaning/Exam 1980 HIV Screening 1980 Hepatitis C Screening 1980 Cervical Cancer Screening 1996 Annual Preventive Exam 1998 Hep B Infection Screening - Triple Screen 1998 Hepatitis B Immunization (1 of 3 - 19+ 3-dose series) 1999 Tetanus Diphtheria and Pertu ssis Immunization (1 - Tdap) 1999 Breast Cancer Screening 2010 Covid-19 Immunization (1 - 2 25 season) 2023 Influenza Immunization (#1) 2024 02/27/2018 HIB Immunization Aged Out No longer e ligible based on patient's age to complete this topic HPV Immunization Aged Out No longer e ligible based on patient's age to complete this topic Hepatitis A Immunization Aged Out No longer eligible based on patient's age to complete this topic Pneumococcal: Ped (0 to 5 Yr s) and At-Risk Member (6 to 64 Yrs) Aged Out No longer e ligible based on patient's age to complete this topic Polio Immunization Aged Out No longer eligible based on patient's age to complete this topic Varicella Immunization Aged Out No lo nger eligible based on patient's age to complete this topic Insurance [address] [place] [address] RITCHIE NO COPAY NB Care Teams Composing Room Machinist Relationship Specialty Start Date End Date Silas Connors MD [address] [facility] [address] [place] [address] PCP - General Internal Medicine 05/06/23
--- OUTSIDE RECORDS SUMMARY | 2024-10-27 10:10 | XMS_ITS | Continuity of Care Document ---
Author Organization [place] - [place] [facility] & [facility] Address [address] [place] [address] Care Team Providers Care Fluid Jet Cutter Operator Name Role Phone VIPIN RIDLEY Primary Care Provider Assessment No assessment recorded. Plan of Treatment Reminders Order Date Submit Date Provider Last Modified By Organization Details Last Modified Time Details Appointments OV EST 20 2024 09:40A Darlene Merritt, DNP, RESIZER OPERATOR, PASTORAL COUNSELOR-C Not available Not available Not available Lab vitamin D, 25-hydro xy, total, serum 2024 025 ISAURO [facility], [address], [address], [place], [address], 09/13/2024 14:37:29 iron + TIBC + ferritin , serum 2024 025 ISAURO [facility], [address], [address], [place], [address], 09/13/2024 14:37:23 folate, serum 2024 025 [facility]O [facility], [address], [address], [place], [address], 09/13/2024 14:37:28 prealbum in, serum 2024 025 IS[facility], [address], [address], [place], [address], 09/13/2024 14:37:31 thiamine , QN, blood 2024 025 ISAURO [facility], [address], [address], [place], [address], 09/13/2024 14:37:30 methylma lonate, QN, serum or plasma 2024 025 ISAURO [facility], [address], [address], [place], [address], 09/13/2024 14:37:31 vitamin E, serum 2024 025 ISAURO [facility], [address], [address], [place], [address], 09/13/2024 14:37:27 vitamin A (retinol ), serum 2024 025 ISAURO [facility], [address], [address], [place], [address], 09/13/2024 14:37:29 CBC w/ auto diff 2024 025 ISAURO [facility], [address], [address], [place], [address], 09/13/2024 14:37:25 HbA1c (hemoglo bin A1c), blood 2024 025 ISAURO [facility], [address], [address], [place], [address], 09/13/2024 14:37:27 TSH + free T4, serum 2024 025 ISAURO [facility], [address], [address], [place], [address], 09/13/2024 14:37:24 CMP, serum or plasma 2024 025 ISAURO [facility], [address], [address], [place], [address], 09/13/2024 14:37:26 lipid panel, serum 2024 025 ISAURO [facility], [address], [address], [place], [address], 09/13/2024 14:37:26 Referral None recorded . Procedures None recorded . Surgeries None recorded . Imaging None recorded . Medication Orders None recorded . Patient TargetsNo targets recorded. Patient InstructionsNo instructions recorded. Reason for Referral None Reported. Results Created Date Observation Date Name Description Value Unit Range Abnormal Flag Note LastModifiedBy Organization Detail LastModifiedTime 09/08/1909/08/2024 FE+TI BC+FE R iron bind.cap.(TI BC) 280 ug/dL 250-45 0 normal Not Available [facility] ([facility]) [address] [place], [address], 09/13/2024 14:37:23 09/08/19 25 09/08/2024 FE+TI BC+FE R UIBC 208 ug/dL 131-42 5 normal Not Available [facility] ([facility]) [address] [place], [address], 09/13/2024 14:37:23 09/08/19 25 09/08/2024 FE+TI BC+FE R iron 72 ug/dL 27-159 normal Not Available [facility] ([facility]) [address] [place], [address], 09/13/2024 14:37:23 09/08/19 25 09/08/2024 FE+TI BC+FE R iron saturation 26 % 15-55 normal Not Available [facility] ([facility]) [address] [place], [address], 09/13/2024 14:37:23 09/08/19 25 09/08/2024 FE+TI BC+FE R ferritin 27 NG/mL 15-150 normal Not Available [facility] ([facility]) [address] [place], [address], 09/13/2024 14:37:23 09/08/19 25 09/08/2024 TSH+F REE T4 TSH 1.050 uIU/m L 0.450- 4.500 normal Not Available [facility] ([facility]) [address] [place], [address], 09/13/2024 14:37:24 09/08/19 25 09/08/2024 TSH+F REE T4 T4,free(dire ct) 1.18 NG/dL 0.82-1 .77 normal Not Available [facility] ([facility]) [address] [place], [address], 09/13/2024 14:37:24 09/08/19 25 09/08/2024 CBC WITH DIFFE RENTI AL/PL ATELE T WBC 9.3 x10e3 /uL 3.4-10 .8 normal Not Available [facility] ([facility]) [address] [place], [address], 09/13/2024 14:37:25 09/08/19 25 09/08/2024 CBC WITH DIFFE RENTI AL/PL ATELE T RBC 4.09 x10e6 /uL 3.77-5 .28 normal Not Available [facility] ([facility]) [address] [place], [address], 09/13/2024 14:37:25 09/08/19 25 09/08/2024 CBC WITH DIFFE RENTI AL/PL ATELE T hemoglobin 12.1 g/dL 11.1-1 5.9 normal Not Available [facility] ([facility]) [address] [place], [address], 09/13/2024 14:37:25 09/08/19 25 09/08/2024 CBC WITH DIFFE RENTI AL/PL ATELE T hematocrit 37.1 % 34.0-4 6.6 normal Not Available [facility] ([facility]) [address] [place], [address], 09/13/2024 14:37:25 09/08/19 25 09/08/2024 CBC WITH DIFFE RENTI AL/PL ATELE T MCV 91 fL 79-97 normal Not Available [facility] ([facility]) [address] [place], [address], 09/13/2024 14:37:25 09/08/19 25 09/08/2024 CBC WITH DIFFE RENTI AL/PL ATELE T MCH 29.6 pg 26.6-3 3.0 normal Not Available [facility] ([facility]) [address] [place], [address], 09/13/2024 14:37:25 09/08/19 25 09/08/2024 CBC WITH DIFFE RENTI AL/PL ATELE T MCHC 32.6 g/dL 31.5-3 5.7 normal Not Available [facility] ([facility]) [address] [place], [address], 09/13/2024 14:37:25 09/08/19 25 09/08/2024 CBC WITH DIFFE RENTI AL/PL ATELE T RDW 12.0 % 11.7-1 5.4 Not Available [facility] ([facility]) [address] [place], [address], 09/13/2024 14:37:25 09/08/19 25 09/08/2024 CBC WITH DIFFE RENTI AL/PL ATELE T platelets 345 x10e3 /uL 150-45 0 normal Not Available [facility] ([facility]) [address] [place], [address], 09/13/2024 14:37:25 09/08/19 25 09/08/2024 CBC WITH DIFFE RENTI AL/PL ATELE T neutrophils 43 % not estab. normal Not Available [facility] ([facility]) [address] [facility], [place], [address], 09/13/2024 14:37:25 09/08/19 25 09/08/2024 CBC WITH DIFFE RENTI AL/PL ATELE T lymphs 36 % not estab. normal Not Available [facility] ([facility]) [address] [facility], [place], [address], 09/13/2024 14:37:25 09/08/19 25 09/08/2024 CBC WITH DIFFE RENTI AL/PL ATELE T monocytes 8 % not estab. normal Not Available [facility] ([facility]) [address] [facility], [place], [address], 09/13/2024 14:37:25 09/08/19 25 09/08/2024 CBC WITH DIFFE RENTI AL/PL ATELE T eos 12 % not estab. normal Not Available [facility] ([facility]) [address] [facility], [place], [address], 09/13/2024 14:37:25 09/08/19 25 09/08/2024 CBC WITH DIFFE RENTI AL/PL ATELE T basos 1 % not estab. normal Not Available [facility] ([facility]) [address] [facility], [place], [address], 09/13/2024 14:37:25 09/08/19 25 09/08/2024 CBC WITH DIFFE RENTI AL/PL ATELE T immature cells PASTORAL COUNSELOR Not Available [facility] ([facility]) [address] [place], [address], 09/13/2024 14:37:25 09/08/19 25 09/08/2024 CBC WITH DIFFE RENTI AL/PL ATELE T neutrophils (absolute) 3.9 x10e3 /uL 1.4-7. 0 normal Not Available [facility] ([facility]) [address] [place], [address], 09/13/2024 14:37:25 09/08/19 25 09/08/2024 CBC WITH DIFFE RENTI AL/PL ATELE T lymphs (absolute) 3.4 x10e3 /uL 0.7-3. 1 above high normal Not Available [facility] ([facility]) [address] [facility], [place], [address], 09/13/2024 14:37:25 09/08/19 25 09/08/2024 CBC WITH DIFFE RENTI AL/PL ATELE T monocytes(ab solute) 0.8 x10e3 /uL 0.1-0. 9 normal Not Available [facility] ([facility]) [address] [place], [address], 09/13/2024 14:37:25 09/08/19 25 09/08/2024 CBC WITH DIFFE RENTI AL/PL ATELE T eos (absolute) 1.1 x10e3 /uL 0.0-0. 4 above high normal Not Available [facility] ([facility]) [address] [place], [address], 09/13/2024 14:37:25 09/08/19 25 09/08/2024 CBC WITH DIFFE RENTI AL/PL ATELE T baso (absolute) 0.1 x10e3 /uL 0.0-0. 2 normal Not Available [facility] ([facility]) [address] [place], [address], 09/13/2024 14:37:25 09/08/19 25 09/08/2024 CBC WITH DIFFE RENTI AL/PL ATELE T immature granulocytes 0 % not estab. Not Available [facility] ([facility]) [address] [place], [address], 09/13/2024 14:37:25 09/08/19 25 09/08/2024 CBC WITH DIFFE RENTI AL/PL ATELE T immature grans (abs) 0.0 x10e3 /uL 0.0-0. 1 Not Available [facility] ([facility]) [address], [place], [address], 09/13/2024 14:37:25 09/08/19 25 09/08/2024 CBC WITH DIFFE RENTI AL/PL ATELE T NRBC PASTORAL COUNSELOR Not Available [facility] ([facility]) [address], [place], [address], 09/13/2024 14:37:25 09/08/19 25 09/08/2024 CBC WITH DIFFE RENTI AL/PL ATELE T hematology comments: PASTORAL COUNSELOR Not Available [facility] ([facility]) [address] [facility], [place], [address], 09/13/2024 14:37:25 09/08/19 25 09/08/2024 COMP. METAB OLIC PANEL (14) glucose 69 mg/dL 70-99 below low normal Not Available [facility] ([facility]) [address] [facility], [place], [address], 09/13/2024 14:37:25 09/08/19 25 09/08/2024 COMP. METAB OLIC PANEL (14) BUN 18 mg/dL 6-24 normal Not Available [facility] ([facility]) [address] [facility] [place], [address], 09/13/2024 14:37:25 09/08/19 25 09/08/2024 COMP. METAB OLIC PANEL (14) creatinine 0.89 mg/dL 0.57-1 .00 normal Not Available [facility] ([facility]) [address] [facility] [place], [address], 09/13/2024 14:37:25 09/08/19 25 09/08/2024 COMP. METAB OLIC PANEL (14) eGFR 82 mL/mi n/1.7 3 >59 normal Not Available [facility] ([facility]) [address] [facility] [place], [address], 09/13/2024 14:37:25 09/08/19 25 09/08/2024 COMP. METAB OLIC PANEL (14) BUN/creatini ne ratio 20 9-23 normal Not Available [facility] ([facility]) [address] [facility] [place], [address], 09/13/2024 14:37:25 09/08/19 25 09/08/2024 COMP. METAB OLIC PANEL (14) sodium 141 mmol/ L 134-14 4 normal Not Available [facility] ([facility]) [address] [facility] [place], [address], 09/13/2024 14:37:25 09/08/19 25 09/08/2024 COMP. METAB OLIC PANEL (14) potassium 4.6 mmol/ L 3.5-5. 2 normal Not Available [facility] ([facility]) [address] [facility] [place], [address], 09/13/2024 14:37:25 09/08/19 25 09/08/2024 COMP. METAB OLIC PANEL (14) chloride 101 mmol/ L 96-106 normal Not Available [facility] ([facility]) [address] [facility] [place], [address], 09/13/2024 14:37:25 09/08/19 25 09/08/2024 COMP. METAB OLIC PANEL (14) carbon dioxide, total 24 mmol/ L 20-29 normal Not Available [facility] ([facility]) [address] [facility] [place], [address], 09/13/2024 14:37:25 09/08/19 25 09/08/2024 COMP. METAB OLIC PANEL (14) calcium 9.9 mg/dL 8.7-10 .2 normal Not Available [facility] ([facility]) [address] [facility] [place], [address], 09/13/2024 14:37:25 09/08/19 25 09/08/2024 COMP. METAB OLIC PANEL (14) protein, total 6.8 g/dL 6.0-8. 5 normal Not Available [facility] ([facility]) [address] [facility] [place], [address], 09/13/2024 14:37:25 09/08/19 25 09/08/2024 COMP. METAB OLIC PANEL (14) albumin 4.4 g/dL 3.9-4. 9 normal Not Available [facility] ([facility]) [address] [facility] [place], [address], 09/13/2024 14:37:25 09/08/19 25 09/08/2024 COMP. METAB OLIC PANEL (14) globulin, total 2.4 g/dL 1.5-4. 5 Not Available [facility] ([facility]) [address] [facility] [place], [address], 09/13/2024 14:37:25 09/08/19 25 09/08/2024 COMP. METAB OLIC PANEL (14) bilirubin, total 0.3 mg/dL 0.0-1. 2 normal Not Available [facility] ([facility]) [address] [facility] [place], [address], 09/13/2024 14:37:25 09/08/19 25 09/08/2024 COMP. METAB OLIC PANEL (14) alkaline phosphatase 104 IU/L 44-121 normal Not Available [facility] ([facility]) [address] [facility] [place], [address], 09/13/2024 14:37:25 09/08/19 25 09/08/2024 COMP. METAB OLIC PANEL (14) AST (SGOT) 26 IU/L 0-40 normal Not Available [facility] ([facility]) [address] [facility] [place], [address], 09/13/2024 14:37:25 09/08/19 25 09/08/2024 COMP. METAB OLIC PANEL (14) ALT (SGPT) 24 IU/L 0-32 normal Not Available [facility] ([facility]) [address] [place], [address], 09/13/2024 14:37:25 09/08/19 25 09/08/2024 LIPID PANEL cholesterol, total 196 mg/dL 100-19 9 normal Not Available [facility] ([facility]) [address] [place], [address], 09/13/2024 14:37:26 09/08/19 25 09/08/2024 LIPID PANEL triglyceride s 136 mg/dL 0-149 normal Not Available [facility] ([facility]) [address] [place], [address], 09/13/2024 14:37:26 09/08/19 25 09/08/2024 LIPID PANEL HDL cholesterol 60 mg/dL >39 normal Not Available [facility] ([facility]) [address] [place], [address], 09/13/2024 14:37:26 09/08/19 25 09/08/2024 LIPID PANEL VLDL cholesterol nura 24 mg/dL 5-40 Not Available [facility] ([facility]) [address] [place], [address], 09/13/2024 14:37:26 09/08/19 25 09/08/2024 LIPID PANEL LDL chol calc ([facility]) 112 mg/dL 0-99 above high normal Not Available [facility] ([facility]) [address] [place], [address], 09/13/2024 14:37:26 09/08/19 25 09/08/2024 LIPID PANEL LDL calc comment: PASTORAL COUNSELOR Not Available [facility] ([facility]) [address] [place], [address], 09/13/2024 14:37:26 09/08/19 25 09/13/2024 VITAM IN E vitamin E(alpha tocopherol) 18.8 mg/L 7.0-25 .1 Not Available [facility] ([facility]) [address] [place], [address], 09/13/2024 14:37:27 09/08/19 25 09/13/2024 VITAM IN E vitamin E(gamma tocopherol) 0.3 mg/L 0.5-5. 5 below low normal Refer ence inter vals for alpha and gamma -toco phero l deter mined from [facility] Nutri tion Exami natio n Surve y, 2004- 2005. Indiv idual s with alpha -toco phero l level s less than 5.0 mg/L are consi dered vitam in E defic ient. Not Available [facility] ([facility]) [address] [facility], [place], [address], 09/13/2024 14:37:27 09/08/19 25 09/08/2024 HEMOG LOBIN A1C hemoglobin A1C 5.5 % 4.8-5. 6 normal Predi abete s: 5.7 - 6.4 Diabe mike: >6.4 Glyce iwona contr ol for adult s with diabe mike: <7.0 Not Available [facility] ([facility]) [address] [place], [address], 09/13/2024 14:37:27 09/08/1909/08/2024 FOLAT E (FOLI C ACID) , SERUM folate (folic acid), serum 4.8 NG/mL >3.0 normal A serum folat e paul ntrat ion of less than 3.1 ng/mL is consi dered to repre sent clini nura defic iency . Not Available [facility] ([facility]) [address] [place], [address], 09/13/2024 14:37:28 09/08/19 25 09/13/2024 VITAM IN A, SERUM vitamin A 57.2 ug/dL 20.1-6 2.0 Refer ence inter vals for vitam in A deter mined from [facility] inter nal studi es. Indiv idual s with vitam in A less than 20 ug/dL are consi dered vitam in A defic ient and those with serum paul ntrat ions less than 10 ug/dL are consi dered sever lisseth defic ient. This test was devel oped and its perfo rmanc e jamil cteri stics deter mined by [facility]. It has not been clear ed or appro lizbeth by the Food and Drug Admin istra tion. Not Available [facility] ([facility]) [address] [facility], [place], [address], 09/13/2024 14:37:29 09/08/19 25 09/08/2024 VITAM IN D, 25-HY DROXY vitamin D, 25-hydroxy 73.7 NG/mL 30.0-1 00.0 Vitam in D defic iency has been defin ed by the Insti tute of Medic ine and an Endoc rine Socie ty pract ice guide line as a level of serum 25-OH vitam in D less than 20 ng/mL (1,2) . The Endoc rine Socie ty went on to furth er defin e vitam in D insuf ficie ncy as a level betwe en 21 and 29 ng/mL (2). 1. IOM (Inst itute of Medic ine). 2009. Dieta ry refer ence intak es for calci um and D. Slade florez [place]: The [facility]al [facility] . 2. Cici isbell MF, Vish ey [place], Marshal off-F errar i CAO, et al. Evalu ation , treat ment, and preve ntion of vitam in D defic iency : an Endoc rine Socie ty clini nura pract ice guide line. JCEM. 2010; 96(7) :1911 -30. Not Available [facility] ([facility]) [address] [facility], [place], [address], 09/13/2024 14:37:29 09/08/19 25 09/12/2024 VITAM IN B1 (THIA MINE) , BLOOD vit. B1, whole blood 115.6 nmol/ L 66.5-2 00.0 Not Available [facility] ([facility]) [address] [facility], [place], [address], 09/13/2024 14:37:30 09/08/19 25 09/10/2024 METHY LMALO BONNIE ACID, SERUM methylmaloni c acid, serum 137 nmol/ L 0-378 Not Available [facility] ([facility]) [address] [facility], [place], [address], 09/13/2024 14:37:31 09/08/19 25 09/08/2024 PREAL BUMIN prealbumin 25 mg/dL 12-34 Not Available [facility] ([facility]) [address] [facility], [place], [address], 09/13/2024 14:37:31 Result Notes None recorded. Problems Name Problem SNOMED Code Status Onset Date Resolution Date Notes Provider Name and Address Organization Details Recorded Time Hyperlipid emia 59641837 Active 2021 Jakob Merritt DNP, NIRU, PASTORAL COUNSELOR-C [address] , [place], [address] , [facility] & [place] 2 09:33:04 Vitamin D deficiency 74289633 Active 2021 Jakob Merritt DNP, NIRU, PASTORAL COUNSELOR-C [address] , [place], [address] , [facility] & [place] 2 09:33:12 Essential hypertensi on 68366977 Active 2021 Jakob Merritt DNP, NIRU, PASTORAL COUNSELOR-C [address], [place], [address] , [facility] & [place] 2 09:33:27 Hypothyroi dism 88544446 Active 2021 Jakob Merritt DNP, NIRU, PASTORAL COUNSELOR-C [address], [place], [address] , [place] - [facility] & [place] 2 09:33:34 Morbid obesity 657694305 Active 2021 Jakob Merritt DNP, RESIZER OPERATOR, PASTORAL COUNSELOR-C [address], [place], [place], [address] [place] [address] , [facility] - [facility] & [place] 2 09:33:44 Intentiona l weight loss 426733977 Active 2021 Jakob Merritt DNP, NIRU, PASTORAL COUNSELOR-C [address], [place], [place], [address] [place] [address] , [facility] - [facility] & [place] 2 09:34:26 Heartburn 15990473 Active 2022 Jakob Merritt DNP, APRN, PASTORAL COUNSELOR-C [address] [facility], [place], [place], [address] [place] [address] , [place] - [facility] & [place] 3 11:52:16 Parathyroi d hormone measuremen t 7463091 Active 2022 Jakob Merritt DNP, APRN, PASTORAL COUNSELOR-C [address] [facility], [place], [place], [address] [place] [address] , [facility] - [facility] & [place] 3 09:45:19 Skin irritation 986884704 Active 2023 Jakob Merritt DNP, APRN, PASTORAL COUNSELOR-C [address] [facility], [place], [place], [address] [place] [address] , [place] - [facility] & [place] 4 13:59:42 Excess skin of abdominal wall 268297535 Active 2023 Jakob Merritt DNP, APRN, PASTORAL COUNSELOR-C [address] [facility], [place], [place], [address] [place] [address] , [place] - [facility] & [place] 4 13:59:48 Dysphagia 62659978 Active 2023 Jakob Merritt DNP, APRN, PASTORAL COUNSELOR-C [address] [facility], [place], [address] , [place] - [facility] - [place] & [place] 4 14:05:38 Gastroesop hageal reflux disease without esophagiti s 386059421 Active 2023 Jakob Merritt, VIKTORIA, RESIZER OPERATOR, PASTORAL COUNSELOR-C [address], [place], [place], [address] [place] [address] , [place] - [facility] & [place] 4 09:42:06 Unintentio nal weight gain 6608302338471 04 Active 2023 Jakob Merritt, VIKTORIA, RESIZER OPERATOR, PASTORAL COUNSELOR-C [address], [place], [place], [address] [place] [address] , [place] - [facility] & [place] 4 14:02:53 Obesity 502356381 Active 2023 Jakob Merritt DNP, RESIZER OPERATOR, PASTORAL COUNSELOR-C [address], [place], [place], [address] [place] [address] , [place] - [facility] & [place] 4 14:03:10 Problem Notes None recorded. Procedures Surgical History Date Name Laterality Status Provider Name and Address Organization Details Recorded Time panniculectomy completed Laura Neno QUINTERO - [facility] & [place] 5 09:35:18 laparoscopic sleeve gastrectomy completed Laura Neno QUINTERO - [facility] 2 09:18:42 esophagogastroduodenoscopy completed Laura Lazcano INGRID - [facility] & [place] 2 09:18:46 ligation of fallopian tube completed Laura Lazcano INGRID - [facility] & [place] 2 09:18:54 Tonsillectomy completed Laura Lazcano INGRID - [facility] & [place] 2 09:19:01 Other completed Laura Lazcano [place] - [facility] & [place] 2 09:20:11 Imaging Results None recorded. Procedure Notes None recorded. Medical Equipment None Reported. Allergies Allergen ID Allergen Name Allergen Category Reaction Reaction Severity Criticality Documentation Date Start Date Code Code System Note Provider Name and Address Organization Details Recorded Time 61403 lisinopri l medicatio n Not available Not available Not available 02/19/2022 02934 RxNorm Laura Lazcano [facility], [facility] & [place] 2 09:17:10 Medications Name Sig Start Date Stop Date Status Note LastModified by Organization Details LastModified Time eq sinus 12-hour 120mg tab TAKE 1 TABLET BY MOUTH EVERY 12 HOURS 09/26 completed Not Available Not Available Not Available eq sinus & congestion 30mg tab TAKE 1 TABLET BY MOUTH EVERY 4 TO 6 HOURS NEEDED FOR NASAL CONGESTIO N (DO NOT EXCEED 4 DOSES IN 24 HOURS) 09/07 completed Not Available Not Available Not Available sinus 12-hr 120mg er tab 09/26 completed Not Available Not Available Not Available losartan 50 mg tablet TAKE 1 TABLET BY MOUTH ONCE DAILY active Not Available Not Available No t Available cyclobenzap rine 10 mg tablet TAKE 1 TABLET BY MOUTH THREE TIMES DAILY FOR MUSCLE RELAXATIO N 01/05 completed Not Available Not Available Not Available amoxicillin 500 mg capsule TAKE 1 CAPSULE BY MOUTH TWICE DAILY FOR 10 DAYS 03/22 completed Not Available Not Available Not Available venlafaxine ER 75 mg capsule,ext ended release 24 hr TAKE 1 CAPSULE BY MOUTH ONCE DAILY active Not Available Not Available No t Available cetirizine 10 mg tablet TAKE 1 TABLET BY MOUTH ONCE DAILY 06/30 completed Not Available Not Available Not Available atorvastati n 10 mg tablet TAKE 1 TABLET BY MOUTH AT BEDTIME FOR CHOLESTER OL active Not Available Not Available No t Available azithromyci n 250 mg tablet TAKE 2 TABLETS BY MOUTH ON DAY 1, AND THEN TAKE 1 TABLET BY MOUTH ONCE A DAY ON DAY 2 THROUGH DAY 5 03/22 completed Not Available Not Available Not Available fluconazole 150 mg tablet 09/07 completed Not Available Not Available Not Available metoprolol succinate ER 50 mg tablet,exte nded release 24 hr TAKE 1 TABLET BY MOUTH ONCE DAILY FOR BLOOD PRESSURE active Not Available Not Available No t Available prednisone 20 mg tablet TAKE 1 TABLET BY MOUTH TWICE DAILY WITH FOOD OR MILK 09/26 completed Not Available Not Available Not Available omeprazole 40 mg capsule,del ayed release TAKE 1 CAPSULE BY MOUTH ONCE DAILY FOR GERD active Not Available Not Available No t Available Euthyrox 25 mcg tablet 06/04 completed Not Available Not Available Not Available amoxicillin 875 mg tablet TAKE 1 TABLET BY MOUTH TWICE DAILY 09/26 completed Not Available Not Available Not Available famotidine 20 mg tablet TAKE 1 TABLET BY MOUTH TWICE DAILY active Not Available Not Available No t Available clarithromy huy ER 500 mg tablet,exte nded release 24 hr 02/19 completed Not Available Not Available Not Available benzonatate 100 mg capsule TAKE 1 CAPSULE BY MOUTH THREE TIMES DAILY NEEDED FOR COUGH 06/04 completed Not Available Not Available Not Available cephalexin 500 mg capsule 09/07 completed Not Available Not Available Not Available cyanocobala min (vit B-12) 1,000 mcg/mL injection solution INJECT 1 ML INTRAMUSC ULARLY ONCE EVERY MONTH active Not Available Not Available No t Available nystatin 100,000 unit/gram topical cream APPLY CREAM TOPICALLY TWICE DAILY 03/22 completed Not Available Not Available Not Available hydrochloro thiazide 12.5 mg capsule TAKE 1 CAPSULE BY MOUTH ONCE DAILY active Not Available Not Available No t Available gabapentin 300 mg capsule 02/19 completed Not Available Not Available Not Available diclofenac sodium 75 mg tablet,nhung yed release TAKE 1 TABLET BY MOUTH TWICE DAILY active Not Available Not Available No t Available ergocalcife rol (vitamin D2) 1,250 mcg (50,000 unit) capsule 01/05 completed Not Available Not Available Not Available triamcinolo ne acetonide 0.1 % lotion APPLY LOTION TOPICALLY TO AFFECTED AREA THREE TIMES DAILY NEEDED FOR ITCHING 03/22 completed Not Available Not Available Not Available methylpredn isolone 4 mg tablets in a dose pack TAKE BY MOUTH DIRECTED ON INSIDE OF PACKAGE 06/04 completed Not Available Not Available Not Available losartan 50 mg-hydrochl orothiazide 12.5 mg tablet 09/26 completed Not Available Not Available Not Available celecoxib 100 mg capsule TAKE 1 CAPSULE BY MOUTH TWICE DAILY 06/30 completed Not Available Not Available Not Available bromphenira mine-pseudo ephedrine-D M 2 mg-30 mg-10 mg/5 mL oral syrup TAKE 5 ML BY MOUTH EVERY 4 HOURS NEEDED FOR SINUS SYMPTOMS 09/07 completed Not Available Not Available Not Available ondansetron 4 mg disintegrat ing tablet DISSOLVE 1 TABLET IN MOUTH EVERY 6 HOURS NEEDED FOR NAUSEA AND VOMITING active Not Available Not Available No t Available buspirone 15 mg tablet TAKE 1 TABLET BY MOUTH TWICE DAILY FOR DEPRESSIO N active Not Available Not Available No t Available neomycin-po lymyxin-hyd rocort 3.5 mg-10,000 unit/mL-1 % ear drops,susp INSTILL 4 DROPS INTO EACH EAR THREE TIMES DAILY FOR 10 DAYS 03/22 completed Not Available Not Available Not Available enoxaparin 60 mg/0.6 mL subcutaneou s syringe 02/19 completed Not Available Not Available Not Available dextroamphe tamine-amph etamine ER 25 mg 24hr capsule,ext end release TAKE 1 CAPSULE BY MOUTH ONCE DAILY 09/07 completed Not Available Not Available Not Available Vitamin C active Not Available Not Natali ilable Not Available potassium chloride active Not Available Not Available Not Available calcium active Not Available Not Avail able Not Available vitamin E active Not Available Not Natali ilable Not Available multivitami n 09/07 completed Not Available Not Available Not Available Vitamin B6 active Not Available Not Av ailable Not Available cholecalcif sagrario (vitamin D3) 1,250 mcg (50,000 unit) capsule TAKE 1 CAPSULE BY MOUTH ONCE A WEEK active Not Available Not Available No t Available levothyroxi ne 50 mcg capsule Take 1 capsule every day by oral route. active Not Available Not Available No t Available Probiotic active Not Available Not Natali ilable Not Available Slow Release Iron 142 mg (45 mg iron) tablet,exte nded release 02/19 completed Not Available Not Available Not Available Vitals Date Recorded Body height Body mass index (BMI) Body weight Body temperature Heart rate Systolic And Diastolic Provider Name and Address Organization Details Last Updated DateTime 5 152.4 cm 36.8 kg/m2 64673.4 4 g 97.8 [degF] 74 /min 107/76 mm[Hg] Laura QUINTERO AVIVA [facility] [place] 5 09:31:23 Social History Question Answer Notes LastModified by Organizat ion Details LastModified Time Tobacco Smoking Status Former Smoker Laura Lazcano [facility], [employer] [facility] [place] 02/19/2022 09:18:31 Do You Have An Advance Directive? No [email or web address] Information not available 02/19/2022 Are You Blind Or Do You Have Difficulty Seeing? No [email or web address] Information not available 02/19/2022 What Was The Date Of Your Most Recent Tobacco Screening? 02/16/2022 [email or web address] Information not available 02/19/2022 Are You Passively Exposed To Smoke? No [email or web address] Information not available 02/19/2022 How Much Tobacco Do You Smoke? No Information not available 02/19/2022 How Many Years Have You Smoked Tobacco? Many [email or web address] Information not available 02/19/2022 Sex: Unknown Functional Status Question Answer Note LastModified by Organizat ion Details LastModified Time Do you use any illicit or recreational drugs? No [email or web address] Information not available 02/19/2022 What is your level of alcohol consumption? None [email or web address] Information not available 02/19/2022 Do you or have you ever used smokeless tobacco? Former smokeless tobacco user [email or web address] Information not available 02/19/2022 What is your exercise level? Occasional [email or web address] Information not available 02/19/2022 Mental Status None recorded. Family History Nothing Reported. Medical History Condition Response Thyroid Problems Y Hypothyroidism Y Anemia Y Anxiety Disorder Y Muscle, Joint, or Bone Problems Y Obesity Y Arthritis Y Back Problems Y Reflux/GERD Y High Cholesterol Y Headaches Y Hypertension Y Chicken Pox Y Gynecological History Statement/Question Response Menses Monthly Y Abnormal Pap N Duration of Flow (days) 3 Current Control Method Tubal Ligat ion Flow Moderate Date of LMP 02/05/2022 Sexually Active? Y Obstetrics History GPAL:G 0 P 0 0 0 0 Past Encounters Encounter ID Performer Location Encounter Start Date Encounter Closed Date Diagnosis/Indication Diagnosis SNOMED-CT Code Diagnosis ICD10 Code Diagnosis Note [id number] Jakob Merritt, DNP, RESIZER OPERATOR, PASTORAL COUNSELOR-[facility] [address] [facility] [address] [place] [address] 09/07/2024 09:15:42 09/07/2024 11:30:28 History of bariatric surgical procedure 747740671 Z98.84 Advised qid intake 50% protein 9988-6483 calories/d y less than 100 carbs/dyLo ng discussion today of [employer] results including PBF(percen t body fat) SMM (skeletal muscle mass) Visceral fat level level BMR Segmental Fat Analysis and Segmental Lean Analysis. Patient encouraged pt to take minimal calories as per BMR and to anticipate changes in SMM and PBF values not just total weight. Repeat EDVIN [facility] 2[facility]mth [facility]. Patient was reassured on today's visit. Dialogue content in great detail regarding the benefits of proper diet as well as regular and routine exercise. In regards to exercise, we discussed reaching target heart rate for least 20 minutes 3 times a week. We also highlighte d the importance of staying well hydrated. Proper handwashin g was also encouraged . Patient was advised to keep in close contact with their primary care provider and/or any specialty provider (s). We will contact patient with any deficienci es. I did offer dietitian visit today, patient declines at this time. Essential hypertension 16658621 I10 Hyperlipidemia 01991729 E78.5 Hypothyroidism 15987163 E03.9 Vitamin D deficiency 347 44684 E55.9 Intentiona l weight loss 384397742 R63.8 History of gastrectomy 680309481 Z90.3 At [facility] ed risk of nutritional deficit 203042374 Z91.89 Morbid obesity 151198565 E66.01 Unintentio nal weight gain 3672528684 69516 R63.5 Health Concerns Section Related Observation LastModified by Organization Detai ls LastModified Time None Recorded Concern Status LastModified by Organization Details LastModified Time None Recorded Payers Encounter Date Sequence Insurance Name Policy Number Policy Hoskins Covered Member ID Hoskins Member ID Guarantor Name 09/07/2024 1 [place] [id number] 2 Moises Squires [id number] 25 Krystle Squires OBGyn Episode No OBEpisode recorded.
--- OUTSIDE RECORDS SUMMARY | 2024-10-27 10:10 | XMS_ITS | Data Portability ---
Author Organization [employer] [place] [facility] [place] Address [address] [place] [address] Assessment No assessment recorded. Plan of Treatment Reminders Order Date Submit Date Provider Last Modified By Organization Details Last Modified Time Details Appointments None recorded. Lab HbA1c (hemoglobin A1c), blood 2024 025 [email or web address] [facility] ([place]), [facility] [place], [address], 5 15:04:40 unlisted lab - toxassure flex 19, [id number] 2024 025 [email or web address] [facility] ([place]), [address] [place] [address], [address], 5 15:04:40 TSH, ultra-sensi tive, serum 2024 025 [email or web address] [facility] ([place]), [address] [place] [address], [address], 5 15:04:40 CMP, serum or plasma 2024 025 [email or web address] [facility] ([place]), [address] [place] [address], [address], 5 15:04:40 CBC w/ auto diff 2024 025 [facility] ([place]), [facility] [place], [address], 15:04:40 Hepatitis C IgG Ab, qual, serum 2024 025 [email or web address] [facility] ([place]), [address] [place], [address], 5 15:04:40 HIV 1 + 2, meaningful use set 2024 025 [email or web address] [facility] ([place]), [address] [place], [address], 5 15:04:40 lipid panel, serum 2024 025 [email or web address] [facility] ([place]), [address] [place], [address], 5 15:04:40 cobalamin and folate panel, serum 2024 025 [email or web address] [facility]), [address] [place], [address], 15:04:40 vitamin D, 25-hydroxy, total, serum 2024 025 [email or web address] [facility] ([place]), [address] [place], [address], 15:04:40 Referral None recorded. Procedures None recorded. Surgeries None recorded. Imaging MAMMO, screening, bilateral 2024 025 [email or web address] [facility] ([facility] [address], [place], [address], 14:57:48 Medication Orders None recorded. Patient TargetsNo targets recorded. Patient Instructions Encounter Date Encounter Id Patient Instructions Last Modified By Organization Details Last Modified Time 10/23/2024 [id number] mammogram: about this test [email or web address] Not available 10/23/2024 14:34:34 high blood pressure: care instructions [email or web address] Not available 10/23/2024 15:04:40 learning about high blood pressure [email or web address] Not available 10/23/2024 15:04:40 mental health assessment* [email or web address] Not available 10/23/2024 14:31:23 MHI Packet Adult [email or web address] Not available 10/23/2024 14:29:39 HIV testing: car e instructions [email or web address] Not available 10/23/2024 15:04:40 attention defici t hyperactivity disorder (ADHD) in adults: care instructions [email or web address] Not available 10/23/2024 14:29:40 Reason for Referral None Reported. Results Created Date Observation Date Name Description Value Unit Range Abnormal Flag Note LastModifiedBy Organization Detail LastModifiedTime Result Notes None recorded. Problems Name Problem SNOMED Code Status Onset Date Resolution Date Notes Provider Name and Address Organization Details Recorded Time Adult attention deficit hyperactivity disorder 401466184 Active 2024 YUE Vergara [address] [place] [address], [address], [employer] 14:28:51 Mixed hyperlipidemia 512180168 Active 2024 YUE Vergara [address] [place] [address], [address], [employer] 14:31:29 Anxiety 31550081 Active 2024 YUE Vergara [address] [place] [address], [address], [employer] 14:31:47 Vitamin D deficiency 70858779 Active 2024 YUE Vergara [address] [place] [address], [address], [employer] 14:31:55 Gastroesophage al reflux disease without esophagitis 929832328 Active 2024 YUE Vergara [address] [place] [address], [address], [employer] 14:32:16 Hypertensive disorder 69315356 Active 2024 YUE Vergara [address] [place] [address], [address], [employer] 14:32:26 Moderate major depression, single episode 47155708 Active 2024 YUE Vergara [address] [place] [address], [address], [employer] 14:32:50 Cobalamin deficiency 540110516 Active 2024 YUE Vergara [address] [place] [address], [address], [employer] 14:33:07 Seasonal allergic rhinitis 910074548 Active 2024 YUE Vergara [address] [place] [address], [address], [employer] 14:33:27 Osteoarthritis of multiple joints 084850193 Active 2024 YUE Vergara [address] [place] [address], [address], [employer] 14:33:45 Problem Notes None recorded. Procedures Surgical History Date Name Laterality Status Provider Name and Address Organization Details Recorded Time 05/10/19 20 Most Recent Mammogram completed [employer] 10/23/2024 14:03:00 Back Surgery completed [employer] 10/23/2024 14:03:01 Gastric Bypass completed [employer] 10/23/2024 14:03:01 Tonsillectomy completed [employer] 10/23/2024 14:03:01 Tubal Ligation completed [employer] 10/23/2024 14:03:01 Imaging Results None recorded. Procedure Notes None recorded. Medical Equipment None Reported. Allergies Allergen ID Allergen Name Allergen Category Reaction Reaction Severity Criticality Documentation Date Start Date Code Code System Note Provider Name and Address Organization Details Recorded Time 16316 lisinopri l medicatio n Not available Not available Not available 10/23/2024 79644 RxNorm [place] [facility], [employer] 14:06:23 Medications Name Sig Start Date [...] Relief 50 mcg/actuati on nasal spray,suspe nsion [place] 1 spray every day by intranasa l [...] and Address Organization Details Last Updated DateTime 23814.7 6 g 37.8 kg/m2 152.4 cm 98 % 98 % 68 /min 98.3 [degF] 108/66 mm[Hg] Destiny Bryant [employer]. 14:16:41 Social History Question Answer Notes LastModified by [employer] Details LastModified Time Tobacco Smoking Status Former Smoker Destiny Bryant richar, [employer]. 10/23/2024 14:03:01 Do You Have An Advance [...] Information not available 10/23/2024 What Type Of Home Advisor Do You Use? None Information not available [...] Or The Highest Degree You Have Received? [id number] Information not available 10/23/2024 How Many Days [...] Do You Have A Medical Power Of Final Inspector? No Information not available 10/23/2024 What Was [...] SNOMED-CT Code Diagnosis ICD10 Code Diagnosis Note [id number] YUE Vergara [facility] [address] [place] [address] 10/23/2024 14:00:09 10/23/2024 14:57:48 Screening mammography 80868253 Z12.31 Adult atte ntion deficit hyperactivity disorder 847645394 F90.9 Counseling 871992401 Z71 .9 Long-term current use of drug therapy 494123496 Z79.899 Vitamin D deficiency 347 04092 E55.9 Mixed hyperlipidemia 267 855463 E78.2 Vitamin B deficiency 479 10894 E53.8 Essential hypertension 33521925 I10 Thyroid di sorder screening 125641772 Z13.29 History of endocrine disorder 097135921 Z87.898 HIV screening 926931722 Z11.4 Viral scre ening status 786624010 Z11.59 Health Concerns Section Related Observation LastModified by Organization Detai ls LastModified Time None Recorded Concern Status LastModified by Organization Details LastModified Time None Recorded Advance Directives Directive N: Payers Insurance Date Sequence Insurance Name Policy Number Policy Hoskins Covered Member ID Hoskins Member ID Guarantor Name 10/22/2024 1 [place] [id number] 2 Moises Squires [id number] Krystle Squires OBGyn Episode No OBEpisode recorded.
[2024-10-28 04:48] LABS: FSH 38.1 mIU/mL (.); LH 37.5 mIU/mL (.)
== END 2024-10-27 23:59 | disposition home or self-care (01) ==
LOC: RAD 10:05
PROVIDERS: Nurse Practitioner Obstetrics & Gynecology; PCP Physician Assistant; Visit Provider Physician Assistant
DX: Z12.31 Encounter for screening mammogram for malignant neoplasm of breast (principal); R92.323 Mammographic fibroglandular density, bilateral breasts; R53.83 Other fatigue
CPT/HCPCS: 36415; 77063; 77067; 82670; 83001; 83002